=== PATIENT | female | born 1990 | race Caucasian/White ===

== ENCOUNTER 2017-02-25 16:22 | Emergency (ER) | payer SELFPAY ==
[~2017-02-25] VITALS: Ht 172.7 cm; Wt 117.9 kg
[2017-02-25] MEDS ORDERED: HYDR-3062 PO (16:56)
[2017-02-25] MEDS ORDERED: DIPH25CA79 PO (16:56)
[2017-02-25] MEDS ORDERED: NITR-65 PO (16:56)
[2017-02-25] MEDS ORDERED: ALPR1TAB2 PO (16:56)
[2017-02-25] MEDS ORDERED: FLUO40CA12 PO (16:56)
[2017-02-25] MEDS ORDERED: HYDR12.56 PO (16:56)
[2017-02-25] MEDS ORDERED: OMEP20CA12 PO (16:56)
[2017-02-25] MEDS ORDERED: CYCL10TA9 PO (16:56)
[2017-02-25] MEDS ORDERED: NORG1TAB14 PO (16:56)
[2017-02-25] MEDS ORDERED: METO10TA3 PO (16:56)
--- NOTE | 2017-02-25 17:52 | ED GU-Female ---
General Chief Complaint: -Female Stated Complaint: UNABLE TO URINATE/HX OF STONES Nursing Triage Note: Pt reports difficulty urinating x3 days and left flank pain. pt reports passing kidney stones on friday (02/22). Nursing Sepsis Screen: No Definite Risk Source: patient Exam Limitations: no limitations History of Present Illness Time seen by provider: 17:52 Allergies and Home Medications Allergies Coded Allergies: Penicillins (Unverified Allergy, Unknown, 02/25/17) Home Medications Alprazolam 1 Mg Tablet, 1 MG PO DAILY, (Reported) Cyclobenzaprine HCl 10 Mg Tablet, 10 MG PO TID PRN for MUSCLE SPASMS, (Reported) Diphenhydramine HCl 25 Mg Capsule, 50 MG PO PRN PRN for allergies, (Reported) Fluoxetine HCl 40 Mg Capsule, 40 MG PO DAILY, (Reported) Hydrochlorothiazide 12.5 Mg Tablet, 12.5 MG PO DAILY, (Reported) Hydrocodone/Acetaminophen 1 Each Tablet, 1 EACH PO Q6H PRN for prn, (Reported) Metoclopramide HCl 10 Mg Tablet, 10 MG PO QID PRN for NAUSEA/VOMITING-1ST LINE, (Reported) Nitrofurantoin Monohyd/M-Cryst 100 Mg Capsule, 1 TAB PO PRN, (Reported) Norgestimate-Ethinyl Estradiol 1 Each Tablet, 1 EACH PO DAILY, (Reported) Omeprazole 20 Mg Capsule.dr, 20 MG PO DAILY, (Reported) Past Ccbazjq-Djlvbo-Wwzenf Hx Patient Social History Alcohol Use: Denies Use Recreational Drug Use: No Smoking Status: Never a Smoker Recent Foreign Travel: No Contact w/Someone Who Travel: No Recent Infectious Disease Expo: No Recent Hopitalizations: No Seasonal Allergies Seasonal Allergies: No Gastrointestinal Gastrointestinal Disorders: Esophagitis, Ulcer Physical Exam Vital Signs Vital Sign - Last 12Hours 02/25/17 16:46 Temp 98.3 Pulse 93 Resp 18 B/P (MAP) 129/73 Pulse Ox 98 O2 Delivery Room Air Capillary Refill : Less Than 3 Seconds Progress/Results/Core Measures Results/Orders Lab Results Laboratory Tests Test 02/25/17 17:30 02/25/17 18:35 Range/Units Urine Color YELLOW Urine Clarity SLIGHTLY CLOUDY Urine pH 8 5-9 Urine Specific [place] 1.010 L 1.016-1.022 Urine Protein 1+ H NEGATIVE Urine Glucose (UA) NEGATIVE NEGATIVE Urine Ketones NEGATIVE NEGATIVE Urine Nitrite NEGATIVE NEGATIVE Urine Bilirubin NEGATIVE NEGATIVE Urine Urobilinogen NORMAL NORMAL MG/DL Urine Leukocyte Esterase 3+ H NEGATIVE Urine RBC (Auto) 1+ H NEGATIVE Urine RBC 2-5 H /HPF Urine WBC 25-50 H /HPF Urine Squamous Epithelial Cells >50 H /HPF Urine Crystals NONE /LPF Urine Bacteria MODERATE H /HPF Urine Casts NONE /LPF Urine Mucus NEGATIVE /LPF Urine Culture Indicated YES White Blood Count 9.6 4.3-11.0 10^3/uL Red Blood Count 4.57 4.35-5.85 10^6/uL Hemoglobin 13.3 11.5-16.0 G/DL Hematocrit 40 35-52 % Mean Corpuscular Volume 88 80-99 FL Mean Corpuscular Hemoglobin 29 25-34 PG Mean Corpuscular Hemoglobin Concent 33 32-36 G/DL Red Cell Distribution Width 12.2 10.0-14.5 % Platelet Count 233 130-400 10^3/uL Mean Platelet Volume 11.3 H 7.4-10.4 FL Neutrophils (%) (Auto) 65 42-75 % Lymphocytes (%) (Auto) 28 12-44 % Monocytes (%) (Auto) 5 0-12 % Eosinophils (%) (Auto) 2 0-10 % Basophils (%) (Auto) 0 0-10 % Neutrophils # (Auto) 6.3 1.8-7.8 X 10^3 Lymphocytes # (Auto) 2.7 1.0-4.0 X 10^3 Monocytes # (Auto) 0.5 0.0-1.0 X 10^3 Eosinophils # (Auto) 0.1 0.0-0.3 10^3/uL Basophils # (Auto) 0.0 0.0-0.1 10^3/uL Sodium Level 138 135-145 MMOL/L Potassium Level 3.7 3.6-5.0 MMOL/L Chloride Level 105 98-107 MMOL/L Carbon Dioxide Level 19 L 21-32 MMOL/L Anion Gap 14 5-14 MMOL/L Blood Urea Nitrogen 14 7-18 MG/DL Creatinine 0.66 0.60-1.30 MG/DL Estimat Glomerular Filtration Rate > 60 BUN/Creatinine Ratio 21 Glucose Level 87 70-105 MG/DL Calcium Level 8.9 8.5-10.1 MG/DL Total Bilirubin 0.2 0.1-1.0 MG/DL Aspartate Amino Transf (AST/SGOT) 20 5-34 U/L Alanine Aminotransferase (ALT/SGPT) 18 0-55 U/L Alkaline Phosphatase 88 40-136 U/L Total Protein 7.2 6.4-8.2 GM/DL Albumin 3.8 3.2-4.5 GM/DL My Orders Orders - HANY VELASQUEZ Ua Culture If Indicated (02/25/17 16:57) Urine Bedside (02/25/17 16:57) Cbc With Automated Diff (02/25/17 18:08) Comprehensive Metabolic Panel (02/25/17 18:08) Saline Lock/Iv-Start (02/25/17 18:08) Fentanyl Injection (Sublimaze Injection (02/25/17 18:08) Ns Iv 1000 Ml (Sodium Chloride 0.9%) (02/25/17 18:08) Ondansetron Injection (Zofran Injectio (02/25/17 18:15) Phenazopyridine Tablet (Pyridium Tablet) (02/25/17 18:08) Urine Culture (02/25/17 17:30) Ceftriaxone Injection (Rocephin Injectio (02/25/17 19:30) Morphine Injection (Morphine Injection (02/25/17 19:28) Bladder Scan (02/25/17 19:28) Medications Given in ED Current Medications Medications Dose Ordered Sig/Carlos Eduardo Route Start Time Stop Time Status Last Admin Dose Admin Ceftriaxone Sodium 1000 mg/ Sodium Chloride 50 ml @ 100 mls/hr ONCE ONCE IV 02/25/17 19:30 02/25/17 19:59 DC 02/25/17 19:43 100 MLS/HR Ondansetron HCl 4 mg ONCE ONCE IVP 02/25/17 18:15 02/25/17 18:16 DC 02/25/17 18:38 4 MG Sodium Chloride 1,000 ml @ 0 mls/hr Q0M ONCE IV 02/25/17 18:08 02/25/17 18:11 DC 02/25/17 18:39 0 MLS/HR Vital Signs/I&O Vital Sign - Last 12Hours 02/25/17 16:46 Temp 98.3 Pulse 93 Resp 18 B/P (MAP) 129/73 Pulse Ox 98 O2 Delivery Room Air Blood Pressure Mean: 91 Departure Impression Impression: Primary Impression: Urinary tract infection Disposition: 01 HOME, SELF-CARE Condition: Improved Departure-Patient Inst. Decision time for Depature: 20:32 Referrals: NO,LOCAL PHYSICIAN (PCP/Family) Primary Care Physician Patient Instructions: Urinary Retention (DC), Urinary Tract Infection, Adult ( DC) Add. Discharge Instructions: All discharge instructions reviewed with patient and/or family. Voiced understanding. Medications as directed. Continue usual home medications. Follow-up with your family practitioner in the next 1-2 days for recheck. Drink plenty of fluids. Return to the emergency department for worsened pain, fever, inability to urinate, or any other concerns. Scripts Ondansetron (Ondansetron Odt) 8 Mg Tab.rapdis 8 MG PO Q6H Y for NAUSEA/VOMITING-1ST LINE, #10 TAB 0 Refills Prov: HANY VELASQUEZ 02/25/17 Phenazopyridine HCl (Pyridium) 200 Mg Tablet 1 TAB PO Q8H Y for pain, #30 TAB 0 Refills Prov: HANY VELASQUEZ 02/25/17 Cefdinir (Cefdinir) 300 Mg Capsule 300 MG PO BID, #14 CAP 0 Refills Prov: HANY VELASQUEZ 02/25/17 Work/School Note: Local Medical Staff Listing, Work Release Form Date Seen in the Emergency Department: Feb 25, 2017 Return to Work: Feb 27, 2017 HANY VELASQUEZ Feb 25, 2017 17:52
[2017-02-25] MEDS ORDERED: NS IV 1000 ML 1,000 ML IV ONE (18:08)
[2017-02-25] MEDS ORDERED: PHENAZOPYRIDINE 100 MG (PYRIDIUM) TABLET PO STA (18:08)
[2017-02-25] MEDS ORDERED: fentaNYL INJECTION 100 MCG/2 ML AMP IVP STA (18:08)
[2017-02-25 18:13] LABS: BILIRUBIN,URINE NEGATIVE (NEGATIVE); KETONES,URINE NEGATIVE (NEGATIVE); LEUKOCYTE ESTERASE ,URINE 3+ (NEGATIVE); NITRITE,URINE NEGATIVE (NEGATIVE); PH,URINE 8 (5-9); PROTEIN,URINE 1+ (NEGATIVE); SQUAMOUS EPITHELIAL CELL,UR >50 /HPF; UROBILINOGEN,URINE NORMAL (NORMAL); WBC,URINE 25-50 /HPF
[2017-02-25] MEDS ORDERED: ONDANSETRON 4 MG/2 ML (SDV) Z0FRAN IVP ONE (18:15)
[2017-02-25 19:08] LABS: BASOPHILS % (AUTO) 0 % (0-10); EOSINOPHILS # (AUTO) 0.1 10^3/uL (0.0-0.3); EOSINOPHILS % (AUTO) 2 % (0-10); LYMPHOCYTES # (AUTO) 2.7 X 10^3 (1.0-4.0); LYMPHOCYTES % (AUTO) 28 % (12-44); MEAN CORPUSCULAR HEMOGLOBIN 29 PG (25-34); MEAN CORPUSCULAR HGB CONC 33 G/DL (32-36); MEAN CORPUSCULAR VOLUME 88 FL (80-99); MEAN PLATELET VOLUME 11.3 FL (7.4-10.4); MONOCYTES # (AUTO) 0.5 X 10^3 (0.0-1.0); MONOCYTES % (AUTO) 5 % (0-12); NEUTROPHILS # (AUTO) 6.3 X 10^3 (1.8-7.8); NEUTROPHILS % (AUTO) 65 % (42-75); PLATELET COUNT 233 10^3/uL (130-400); RED BLOOD COUNT 4.57 10^6/uL (4.35-5.85); RED CELL DISTRIBUTION WIDTH 12.2 % (10.0-14.5); WHITE BLOOD COUNT 9.6 10^3/uL (4.3-11.0)
[2017-02-25 19:09] LABS: ALANINE AMINOTRANSFERASE 18 U/L (0-55); ALBUMIN 3.8 GM/DL (3.2-4.5); ANION GAP 14 MMOL/L (5-14); ASPARTATE AMINO TRANSFERASE 20 U/L (5-34); BILIRUBIN,TOTAL 0.2 MG/DL (0.1-1.0); BLOOD UREA NITROGEN 14 MG/DL (7-18); BUN/CREATININE RATIO 21; CALCIUM 8.9 MG/DL (8.5-10.1); CARBON DIOXIDE 19 MMOL/L (21-32); CHLORIDE 105 MMOL/L (98-107); CREATININE SERUM 0.66 MG/DL (0.60-1.30); GFR ESTIMATED > 60; GLUCOSE 87 MG/DL (70-105); POTASSIUM 3.7 MMOL/L (3.6-5.0); SODIUM 138 MMOL/L (135-145); TOTAL PROTEIN 7.2 GM/DL (6.4-8.2)
[2017-02-25] MEDS ORDERED: morphine INJ 10 MG/ML 1ML (SYR OR VIAL) IVP STA (19:28)
[2017-02-25] MEDS ORDERED: cefTRIAXone INJECTION 1,000 MG in NS (IVPB) 50 ML IV ONE (19:30)
[2017-02-25] MEDS ORDERED: PHEN-640 PO (20:39)
[2017-02-25] MEDS ORDERED: CEFD300C3 PO (20:39)
[2017-02-25] MEDS ORDERED: ONDA8TAB13 PO (20:39)
[2017-02-25] MEDS ORDERED: DIAZEPAM INJ 10 MG/2 ML (VALIUM) SYR IV ONE (21:15)
[2017-02-25] MEDS ORDERED: HYOS0.1283 SL (21:22)
[2017-02-25] MEDS ORDERED: RX-OXYCODONE/APAP 5-325 MG #4 TAB PK PO PRN (21:30)
[2017-02-25] MEDS ORDERED: HYOSCYAMINE 0.125 MG (LEVSIN) TAB PO ONE (21:30)
[2017-02-25] MEDS ORDERED: RX-HYOSCYAMINE 0.125 MG SL (LEVSIN) PPK#6 SL STA (21:31)
[2017-02-25] MEDS ORDERED: HYDR-3816 PO (21:32)
[2017-02-25 21:49] VITALS: BP 126/70
== END 2017-02-25 21:49 | disposition home or self-care (01) ==
LOC: EDUNIT# 16:22 → ER 16:26
DX: N39.0 Urinary tract infection, site not specified (principal); Z87.19 Personal history of other diseases of the digestive system
CPT/HCPCS: 36415; 51701; 80053; 81000; 84703; 85025; 87088; 96361; 96365; 96375

== ENCOUNTER 2018-10-09 10:26 | Emergency (ER) | payer SELFPAY ==
[~2018-10-09] VITALS: Ht 172.7 cm; Wt 118.8 kg
[~2018-10-09 10:26] MED LIST: ALPR1TAB2 PO; CEFD300C3 PO; CYCL10TA9 PO; DIPH25CA79 PO; FLUO40CA12 PO; HYDR-3062 PO; HYDR-34 PO; HYDR12.56 PO; HYOS0.1283 SL; METO10TA3 PO; NITR-65 PO; NORG1TAB14 PO; OMEP20CA12 PO; ONDA8TAB13 PO; PHEN-640 PO
[2018-10-09] MEDS ORDERED: fentaNYL INJECTION 100 MCG/2 ML AMP IVP ONE (11:00)
--- NOTE | 2018-10-09 11:20 | ED Abdominal Pain ---
General Chief Complaint: -Female Stated Complaint: SUPRAPUBIC PAIN Nursing Triage Note: severe pelvic pain starting this morning. Sepsis Screen: No Definite Risk History of Present Illness Date Seen by Provider: Oct 09, 2018 Time Seen by Provider: 10:35 Initial Comments Patient is a 28-year-old female who presents to the emergency department complaining of pelvic pain. The patient had onset of pain symptoms earlier this morning. She describes sudden onset of severe pelvic pain. She does have a known prior history of kidney stones but states this pain feels much different compared to prior stones. No recent fever or chills. Her last menstrual cycle was Sep 17 but she had some irregular spotting of blood last week. She denies abnormal vaginal discharge. No flank pain. She is nauseated from the pain but has not had emesis. Denies prior history of abdominal surgeries. No constipation or diarrhea. She is a with no prior related complications. Allergies and Home Medications Allergies Coded Allergies: Penicillins (Unverified Allergy, Unknown, 02/25/17) Home Medications Alprazolam 1 Mg Tablet, 1 MG PO DAILY, (Reported) Cefdinir 300 Mg Capsule, 300 MG PO BID Prescribed by: HANY VELASQUEZ on 02/25/172038 Cyclobenzaprine HCl 10 Mg Tablet, 10 MG PO TID PRN for MUSCLE SPASMS, (Reported) Diphenhydramine HCl 25 Mg Capsule, 50 MG PO PRN PRN for allergies, (Reported) Fluoxetine HCl 40 Mg Capsule, 40 MG PO DAILY, (Reported) Hydrochlorothiazide 12.5 Mg Tablet, 12.5 MG PO DAILY, (Reported) Hydrocodone Bit/Acetaminophen 1 Each Tablet, 1 EACH PO Q4H PRN for pain Prescribed by: HANY VELASQUEZ on 02/25/172131 Hydrocodone/Acetaminophen 1 Each Tablet, 1 EACH PO Q6H PRN for prn, (Reported) Hyoscyamine Sulfate 0.125 Mg Tab.subl, 0.125 MG SL Q6H PRN for SPASMS Prescribed by: HANY VELASQUEZ on 02/25/172121 Metoclopramide HCl 10 Mg Tablet, 10 MG PO QID PRN for NAUSEA/VOMITING-1ST LINE, (Reported) Nitrofurantoin Monohyd/M-Cryst 100 Mg Capsule, 1 TAB PO PRN, (Reported) Norgestimate-Ethinyl Estradiol 1 Each Tablet, 1 EACH PO DAILY, (Reported) Omeprazole 20 Mg Capsule.dr, 20 MG PO DAILY, (Reported) Ondansetron 8 Mg Tab.rapdis, 8 MG PO Q6H PRN for NAUSEA/VOMITING-1ST LINE Prescribed by: HANY VELASQUEZ on 02/25/172038 Phenazopyridine HCl 200 Mg Tablet, 1 TAB PO Q8H PRN for pain Prescribed by: HANY VELASQUEZ on 02/25/172038 Patient Home Medication List Home Medication List Reviewed: Yes Review of Systems Review of Systems Constitutional: no symptoms reported Respiratory: No Symptoms Reported Cardiovascular: No Symptoms Reported Gastrointestinal: See HPI Genitourinary: See HPI Musculoskeletal: no symptoms reported Skin: no symptoms reported Psychiatric/Neurological: No Symptoms Reported Past Lmhnuzi-Jsgusd-Swoced Hx Patient Social History Recent Foreign Travel: No Contact w/Someone Who Travel: No Recent Infectious Disease Expo: No Recent Hopitalizations: No Seasonal Allergies Seasonal Allergies: No Past Medical History Respiratory: No Cardiac: No Neurological: No : No Last Menstrual Period: Sep 17, 2018 Hx : 2 Hx Para: 2 Genitourinary: Yes ("sponge kidney") Kidney Stones Gastrointestinal: Yes Esophagitis, Ulcer Musculoskeletal: No Endocrine: No HEENT: No Cancer: No Psychosocial: No Integumentary: No Blood Disorders: No Family Medical History No Pertinent Family Hx Physical Exam Vital Signs Vital Signs - First Documented 10/09/18 10:53 Temp 97.8 Pulse 86 Resp 18 B/P (MAP) 144/74 (97) Pulse Ox 96 O2 Delivery Room Air Capillary Refill : Less Than 3 Seconds Height/Weight/BMI Height: 5'8.00" Weight: 262lbs. oz. 118.900297gi; BMI Method:Stated General Appearance: WD/WN, other (severe distress due to pain) Neck: full range of motion Respiratory: lungs clear, normal breath sounds Cardiovascular: regular rate, rhythm, no edema Gastrointestinal: normal bowel sounds, soft, other (tender to palpate over her pelvic region but not upper abdomen) Genital/Rectal: normal genital exam Extremities: normal range of motion, normal inspection Back: no CVA tenderness Neurologic/Psychiatric: alert, oriented x 3 Progress/Results/Core Measures Results/Orders Lab Results Laboratory Tests Test 10/09/18 11:00 10/09/18 11:30 Range/Units White Blood Count 7.8 4.3-11.0 10^3/uL Red Blood Count 4.56 4.35-5.85 10^6/uL Hemoglobin 13.4 11.5-16.0 G/DL Hematocrit 40 35-52 % Mean Corpuscular Volume 87 80-99 FL Mean Corpuscular Hemoglobin 29 25-34 PG Mean Corpuscular Hemoglobin Concent 34 32-36 G/DL Red Cell Distribution Width 12.5 10.0-14.5 % Platelet Count 208 130-400 10^3/uL Mean Platelet Volume 10.9 H 7.4-10.4 FL Neutrophils (%) (Auto) 68 42-75 % Lymphocytes (%) (Auto) 25 12-44 % Monocytes (%) (Auto) 5 0-12 % Eosinophils (%) (Auto) 2 0-10 % Basophils (%) (Auto) 0 0-10 % Neutrophils # (Auto) 5.2 1.8-7.8 X 10^3 Lymphocytes # (Auto) 2.0 1.0-4.0 X 10^3 Monocytes # (Auto) 0.4 0.0-1.0 X 10^3 Eosinophils # (Auto) 0.2 0.0-0.3 10^3/uL Basophils # (Auto) 0.0 0.0-0.1 10^3/uL Neutrophils % (Manual) 59 % Lymphocytes % (Manual) 28 % Monocytes % (Manual) 6 % Eosinophils % (Manual) 2 % Basophils % (Manual) 1 % Band Neutrophils 4 % Urine Color YELLOW Urine Clarity SL CLOUDY Urine pH 6.0 5-9 Urine Specific [place] >=1.030 1.016-1.022 Urine Protein NEGATIVE NEGATIVE Urine Glucose (UA) NEGATIVE NEGATIVE Urine Ketones NEGATIVE NEGATIVE Urine Nitrite NEGATIVE NEGATIVE Urine Bilirubin NEGATIVE NEGATIVE Urine Urobilinogen 0.2 NORMAL MG/DL Urine Leukocyte Esterase NEGATIVE NEGATIVE Urine RBC (Auto) 1+ H NEGATIVE Urine RBC 0-2 /HPF Urine WBC 2-5 /HPF Urine Crystals NONE /LPF Urine Bacteria 3+ /HPF Urine Casts NONE /LPF Urine Mucus LARGE H /LPF Urine Culture Indicated NO Urine Test POSITIVE NEGATIVE Sodium Level 141 135-145 MMOL/L Potassium Level 4.0 3.6-5.0 MMOL/L Chloride Level 105 98-107 MMOL/L Carbon Dioxide Level 17 L 21-32 MMOL/L Anion Gap 19 H 5-14 MMOL/L Blood Urea Nitrogen 8 7-18 MG/DL Creatinine 0.59 L 0.60-1.30 MG/DL Estimat Glomerular Filtration Rate > 60 BUN/Creatinine Ratio 14 Glucose Level 117 H 70-105 MG/DL Calcium Level 8.7 8.5-10.1 MG/DL Human Chorionic Gonadotropin, Quant 222 H <5 MIU/ML My Orders Orders - CHUY CORRALES DO Saline Lock/Iv-Start (10/09/18 10:53) Cbc And Manual Diff (10/09/18 10:53) Basic Metabolic Panel (10/09/18 10:53) Urinalysis (10/09/18 10:53) Urine Bedside (10/09/18 10:53) Chlam Dna Probe (10/09/18 10:53) Neisseria Gonorrhea Swab (10/09/18 10:53) Fentanyl Injection (Sublimaze Injection (10/09/18 11:00) Hcg,Qualitative Urine (10/09/18 11:04) Us Non Ob Pelvis Comp/Transvag (10/09/18 11:44) Ns Iv 1000 Ml (Sodium Chloride 0.9%) (10/09/18 12:00) Hydromorphone Injection (Dilaudid Inject (10/09/18 12:00) Hcg,Quantitative (10/09/18 12:06) Hydromorphone Injection (Dilaudid Inject (10/09/18 12:45) Medications Given in ED Current Medications Medications Dose Ordered Sig/Carlos Eduardo Route Start Time Stop Time Status Last Admin Dose Admin Fentanyl Citrate 75 mcg ONCE ONCE IVP 10/09/18 11:00 10/09/18 11:01 DC 10/09/18 11:14 75 MCG Hydromorphone HCl 0.5 mg ONCE ONCE IV 10/09/18 12:45 10/09/18 12:46 DC 10/09/18 12:45 0.5 MG Hydromorphone HCl 1 mg ONCE ONCE IV 10/09/18 12:00 10/09/18 12:01 DC 10/09/18 12:00 1 MG Vital Signs/I&O 10/09/18 10/09/18 10/09/18 10:53 12:55 13:46 Temp 97.8 97.0 97.3 Pulse 86 75 73 Resp 18 18 20 B/P (MAP) 144/74 (97) 138/84 (102) 146/72 (96) Pulse Ox 96 96 97 O2 Delivery Room Air Room Air Blood Pressure Mean: 97 Progress Progress Note : Progress Note Patient is evaluated immediately on arrival to her room. She is in significant distress due to pain. Plan is to check basic labs, urinalysis, urine , and pelvic exam. Fentanyl was ordered for pain and IV placement is also ordered. 11:50: Pelvic Exam: normal female external genitalia. Vaginal mucosa is moist and uninflamed. Scant amount of old blood in the vault. No pathologic discharge is appreciated. Noted, the the examination is excruciatingly painful for the patient, including with cervical motion tenderness and with adnexal palpation. Exam is accompanied by female registered nurse. 12:20: Urine is returned positive. I discussed this finding with the patient. The patient did not know that she was . This raises significant concern based on her HPI and physical exam for ectopic . We do not currently have ultrasound available at this facility and they are about 40 minutes out. Given the severity of the potential diagnosis, I discussed transfer to the next closest emergency room with immediate ultrasound capabilities with the patient. She is agreeable to this plan of care. She was given an additional dose of pain medication, Dilaudid, which did significantly improve her symptoms. Differential diagnosis includes tubo-ovarian abscess, ovarian torsion, ovarian cyst, ruptured ovarian cyst, ectopic . Proper evaluation of all of these requires ultrasound of the pelvis, I do not feel it is appropriate to delay ultrasound in this patient given positive findings. I spoke to at [facility] in [place] who will accept the patient for ER to ER transfer. 12:40: EMS notified of need for transfer. Additional 0.5 mg dilaudid ordered. Departure Impression Primary Impression: Pelvic pain Disposition: 02 XFER SHT-TRM HOSP Condition: Stable Transfer Time Spoke to Accepting Phy: 10:[address] Cruz Nguyen Transfer Time: 12:50 Transfer Facility: [facility] Emergency Department, [place] Method of Transfer: EMS Departure-Patient Inst. Referrals: JENI BATES APRN (PCP) Primary Care Physician NO,LOCAL PHYSICIAN (Family) Primary Care Physician CHUY CORRALES DO Oct 09, 2018 11:20
[2018-10-09] MEDS ORDERED: HYDROmorphone 2 MG/ML VIAL (DILAUDID) IV ONE ×3 (11:45→12:45)
[2018-10-09 11:57] LABS: BILIRUBIN,URINE NEGATIVE (NEGATIVE); CLARITY,URINE SL CLOUDY; COLOR,URINE YELLOW; GLUCOSE, URINE (UA) NEGATIVE (NEGATIVE); KETONES,URINE NEGATIVE (NEGATIVE); LEUKOCYTE ESTERASE ,URINE NEGATIVE (NEGATIVE); NITRITE,URINE NEGATIVE (NEGATIVE); PROTEIN,URINE NEGATIVE (NEGATIVE); UROBILINOGEN,URINE 0.2 MG/DL (NORMAL)
[2018-10-09 11:58] LABS: BACTERIA,URINE 3+ /HPF; HCG,QUALITATIVE URINE POSITIVE (NEGATIVE); RBC,URINE 0-2 /HPF
[2018-10-09 12:00] LABS: BUN/CREATININE RATIO 14; CALCIUM 8.7 MG/DL (8.5-10.1); CARBON DIOXIDE 17 MMOL/L (21-32); CHLORIDE 105 MMOL/L (98-107); CREATININE SERUM 0.59 MG/DL (0.60-1.30); GFR ESTIMATED > 60; GLUCOSE 117 MG/DL (70-105); SODIUM 141 MMOL/L (135-145)
[2018-10-09] MEDS ORDERED: NS IV 1000 ML 1,000 ML IV SCH (12:00)
[2018-10-09 12:01] LABS: HEMATOCRIT 40 % (35-52); HEMOGLOBIN 13.4 G/DL (11.5-16.0); MEAN CORPUSCULAR HEMOGLOBIN 29 PG (25-34); MEAN CORPUSCULAR HGB CONC 34 G/DL (32-36); MEAN CORPUSCULAR VOLUME 87 FL (80-99); RED CELL DISTRIBUTION WIDTH 12.5 % (10.0-14.5); WHITE BLOOD COUNT 7.8 10^3/uL (4.3-11.0)
[2018-10-09 12:02] LABS: BASOPHILS % (AUTO) 0 % (0-10); EOSINOPHILS % (AUTO) 2 % (0-10); LYMPHOCYTES % (AUTO) 25 % (12-44); MEAN PLATELET VOLUME 10.9 FL (7.4-10.4); MONOCYTES % (AUTO) 5 % (0-12); NEUTROPHILS % (AUTO) 68 % (42-75); PLATELET COUNT 208 10^3/uL (130-400)
[2018-10-09 12:03] LABS: BAND NEUTROPHILS 4 %; BASOPHILS % (MANUAL) 1 %; EOSINOPHILS # (AUTO) 0.2 10^3/uL (0.0-0.3); EOSINOPHILS % (MANUAL) 2 %; LYMPHOCYTES % (MANUAL) 28 %; MONOCYTES # (AUTO) 0.4 X 10^3 (0.0-1.0); MONOCYTES % (MANUAL) 6 %; NEUTROPHILS # (AUTO) 5.2 X 10^3 (1.8-7.8); NEUTROPHILS % (MANUAL) 59 %
[2018-10-09 13:46] VITALS: BP 146/72
[2018-10-09] MEDS ORDERED: HYDROmorphone 2 MG/ML VIAL (DILAUDID) IV STA (13:59)
--- NOTE | 2018-10-09 15:00 | NUR ---
ASSUMED CARE OF PT. DENIES NEEDS AT THIS TIME.
--- NOTE | 2018-10-09 15:12 | ED Abdominal Pain ---
General Chief Complaint: -Female Stated Complaint: SUPRAPUBIC PAIN Nursing Triage Note: severe pelvic pain starting this morning. Sepsis Screen: No Definite Risk Source of Information: Patient Exam Limitations: No Limitations History of Present Illness Date Seen by Provider: Oct 09, 2018 Time Seen by Provider: 13:04 Initial Comments Here from [place] ED with report of severe pelvic pain that started this morning. Patient was found to be at [place]. Concerns for ectopic . Patient did not know that she was . Last period was September 17. She is sexually active with single partner. She's had pelvic pain problems before related to different things. She's had 2 previous pregnancies. No nausea or vomiting currently. She has had Dilaudid 1/2 mg and fentanyl 75 g and repeated 50 g for pain prior to arrival. Patient is early tender again and she is concerned about the ultrasound due to pain. Timing/Duration: 12 Hours Severity/Quality: Moderate, Severe, Sharp Location: Suprapubic Radiation: No Radiation Activities at Onset: None Modifying Factors: Worsens With Movement Associated Symptoms: No Back Pain, No Chest Pain, No Fever/Chills, No Nausea/ Vomiting, No Shortness of Air, No Weakness Allergies and Home Medications Allergies Coded Allergies: Penicillins (Unverified Allergy, Unknown, 02/25/17) Home Medications Alprazolam 1 Mg Tablet, 1 MG PO DAILY, (Reported) Cefdinir 300 Mg Capsule, 300 MG PO BID Prescribed by: HANY VELASQUEZ on 02/25/172038 Cyclobenzaprine HCl 10 Mg Tablet, 10 MG PO TID PRN for MUSCLE SPASMS, (Reported) Diphenhydramine HCl 25 Mg Capsule, 50 MG PO PRN PRN for allergies, (Reported) Fluoxetine HCl 40 Mg Capsule, 40 MG PO DAILY, (Reported) Hydrochlorothiazide 12.5 Mg Tablet, 12.5 MG PO DAILY, (Reported) Hydrocodone Bit/Acetaminophen 1 Each Tablet, 1 EACH PO Q4H PRN for pain Prescribed by: HANY VELASQUEZ on 02/25/172131 Hydrocodone Bit/Acetaminophen 1 Ea Tablet, 1 EACH PO Q6H Prescribed by: YAYA SNOWDEN on 10/09/18 1602 Hydrocodone/Acetaminophen 1 Each Tablet, 1 EACH PO Q6H PRN for prn, (Reported) Hyoscyamine Sulfate 0.125 Mg Tab.subl, 0.125 MG SL Q6H PRN for SPASMS Prescribed by: HANY VELASQUEZ on 02/25/172121 Metoclopramide HCl 10 Mg Tablet, 10 MG PO QID PRN for NAUSEA/VOMITING-1ST LINE, (Reported) Nitrofurantoin Monohyd/M-Cryst 100 Mg Capsule, 1 TAB PO PRN, (Reported) Norgestimate-Ethinyl Estradiol 1 Each Tablet, 1 EACH PO DAILY, (Reported) Omeprazole 20 Mg Capsule.dr, 20 MG PO DAILY, (Reported) Ondansetron 8 Mg Tab.rapdis, 8 MG PO Q6H PRN for NAUSEA/VOMITING-1ST LINE Prescribed by: HANY VELASQUEZ on 02/25/172038 Phenazopyridine HCl 200 Mg Tablet, 1 TAB PO Q8H PRN for pain Prescribed by: HANY VELASQUEZ on 02/25/172038 Patient Home Medication List Home Medication List Reviewed: Yes Review of Systems Review of Systems Constitutional: no symptoms reported Respiratory: No Symptoms Reported Cardiovascular: No Symptoms Reported Gastrointestinal: See HPI Genitourinary: See HPI Musculoskeletal: no symptoms reported Skin: no symptoms reported Psychiatric/Neurological: No Symptoms Reported All Other Systems Reviewed Negative Unless Noted: Yes Past Xqjdkkf-Ntxrly-Zppbry Hx Past Med/Social Hx: Reviewed Nursing Past Med/Soc Hx Patient Social History Alcohol Use: Denies Use Recreational Drug Use: No Smoking Status: Unknown if Ever Smoked Recent Foreign Travel: No Contact w/Someone Who Travel: No Recent Infectious Disease Expo: No Recent Hopitalizations: No Physical Abuse: No Sexual Abuse: No Mistreated: No Fear: No Immunizations Up To Date Tetanus Booster (TDap): Unknown Seasonal Allergies Seasonal Allergies: No Past Medical History Surgeries: Yes (LITHOTRIPSY) Respiratory: No Cardiac: No Neurological: No : No Last Menstrual Period: Sep 17, 2018 Hx : 2 Hx Para: 2 Genitourinary: Yes (MEDULARY SPONGE KIDNEY DISEASE) Kidney Stones Gastrointestinal: Yes Diverticulosis, Esophagitis Musculoskeletal: No Endocrine: No HEENT: No Cancer: No Psychosocial: No Integumentary: No Blood Disorders: No Family Medical History Reviewed Nursing Family Hx No Pertinent Family Hx Physical Exam Vital Signs Vital Signs - First Documented 10/09/18 10:53 Temp 97.8 Pulse 86 Resp 18 B/P (MAP) 144/74 (97) Pulse Ox 96 O2 Delivery Room Air Capillary Refill : Less Than 3 Seconds Height/Weight/BMI Height: 5'8.00" Weight: 262lbs. oz. 118.224128qm; BMI Method:Stated General Appearance: WD/WN, mild distress HEENT: PERRL/EOMI, pharynx normal Neck: full range of motion, supple Respiratory: lungs clear, normal breath sounds Cardiovascular: regular rate, rhythm, no murmur Gastrointestinal: soft, tenderness (bilateral lower quadrants and suprapubic area.) Extremities: non-tender, normal inspection Back: normal inspection, no CVA tenderness, no vertebral tenderness Neurologic/Psychiatric: alert, oriented x 3 Skin: normal color, warm/dry Progress/Results/Core Measures Results/Orders Lab Results Laboratory Tests Test 10/09/18 11:00 10/09/18 11:30 Range/Units White Blood Count 7.8 4.3-11.0 10^3/uL Red Blood Count 4.56 4.35-5.85 10^6/uL Hemoglobin 13.4 11.5-16.0 G/DL Hematocrit 40 35-52 % Mean Corpuscular Volume 87 80-99 FL Mean Corpuscular Hemoglobin 29 25-34 PG Mean Corpuscular Hemoglobin Concent 34 32-36 G/DL Red Cell Distribution Width 12.5 10.0-14.5 % Platelet Count 208 130-400 10^3/uL Mean Platelet Volume 10.9 H 7.4-10.4 FL Neutrophils (%) (Auto) 68 42-75 % Lymphocytes (%) (Auto) 25 12-44 % Monocytes (%) (Auto) 5 0-12 % Eosinophils (%) (Auto) 2 0-10 % Basophils (%) (Auto) 0 0-10 % Neutrophils # (Auto) 5.2 1.8-7.8 X 10^3 Lymphocytes # (Auto) 2.0 1.0-4.0 X 10^3 Monocytes # (Auto) 0.4 0.0-1.0 X 10^3 Eosinophils # (Auto) 0.2 0.0-0.3 10^3/uL Basophils # (Auto) 0.0 0.0-0.1 10^3/uL Neutrophils % (Manual) 59 % Lymphocytes % (Manual) 28 % Monocytes % (Manual) 6 % Eosinophils % (Manual) 2 % Basophils % (Manual) 1 % Band Neutrophils 4 % Urine Color YELLOW Urine Clarity SL CLOUDY Urine pH 6.0 5-9 Urine Specific [place] >=1.030 1.016-1.022 Urine Protein NEGATIVE NEGATIVE Urine Glucose (UA) NEGATIVE NEGATIVE Urine Ketones NEGATIVE NEGATIVE Urine Nitrite NEGATIVE NEGATIVE Urine Bilirubin NEGATIVE NEGATIVE Urine Urobilinogen 0.2 NORMAL MG/DL Urine Leukocyte Esterase NEGATIVE NEGATIVE Urine RBC (Auto) 1+ H NEGATIVE Urine RBC 0-2 /HPF Urine WBC 2-5 /HPF Urine Crystals NONE /LPF Urine Bacteria 3+ /HPF Urine Casts NONE /LPF Urine Mucus LARGE H /LPF Urine Culture Indicated NO Urine Test POSITIVE NEGATIVE Sodium Level 141 135-145 MMOL/L Potassium Level 4.0 3.6-5.0 MMOL/L Chloride Level 105 98-107 MMOL/L Carbon Dioxide Level 17 L 21-32 MMOL/L Anion Gap 19 H 5-14 MMOL/L Blood Urea Nitrogen 8 7-18 MG/DL Creatinine 0.59 L 0.60-1.30 MG/DL Estimat Glomerular Filtration Rate > 60 BUN/Creatinine Ratio 14 Glucose Level 117 H 70-105 MG/DL Calcium Level 8.7 8.5-10.1 MG/DL Human Chorionic Gonadotropin, Quant 222 H <5 MIU/ML My Orders Orders - YAYA SNOWDEN MD Hydromorphone Injection (Dilaudid Inject (10/09/18 13:59) Us Ob<14 Wks Sngle W/Transvag (10/09/18 13:03) Hydrocodone/Apap 7.5/325 Tab (Lortab 7. (10/09/18 15:33) Ceftriaxone For Iv Use (Rocephin For I (10/09/18 16:00) Azithromycin Tablet (Zithromax Tablet) (10/09/18 15:48) Abo Rh Type (10/09/18 16:09) Medications Given in ED Current Medications Medications Dose Ordered Sig/Carlos Eduardo Route Start Time Stop Time Status Last Admin Dose Admin Ceftriaxone Sodium 1000 mg/ Sterile Water 10 ml @ 200 mls/hr ONCE ONCE IV 10/09/18 16:00 10/09/18 16:02 DC 10/09/18 16:00 200 MLS/HR Fentanyl Citrate 75 mcg ONCE ONCE IVP 10/09/18 11:00 10/09/18 11:01 DC 10/09/18 11:14 75 MCG Hydromorphone HCl 0.5 mg ONCE ONCE IV 10/09/18 12:45 10/09/18 12:46 DC 10/09/18 12:45 0.5 MG Hydromorphone HCl 1 mg ONCE ONCE IV 10/09/18 12:00 10/09/18 12:01 DC 10/09/18 12:00 1 MG Vital Signs/I&O 10/09/18 10/09/18 10/09/18 10:53 12:55 13:46 Temp 97.8 97.0 97.3 Pulse 86 75 73 Resp 18 18 20 B/P (MAP) 144/74 (97) 138/84 (102) 146/72 (96) Pulse Ox 96 96 97 O2 Delivery Room Air Room Air Blood Pressure Mean: 96 Progress Progress Note : Progress Note Seen and evaluated. Reviewed laboratory data and physician documentation from [place] ED. Ultrasound pelvis ordered. Quantitative hCG level noted to be 222. Dilaudid 1 mg IV for pain. Monitor patient. 1545: Ultrasound results noted and discussed with the patient. No acute findings. May have had ruptured ovarian cyst. No intraoral or extrauterine noted. Early given her Quant is only 222. She will need repeat hCG level. I did discuss the case with Dr. Titus, on-call for [facility]. She will establish follow-up visit appointment for repeat Quant level early next week. I will write a small prescription for pain medicine. Rocephin 1 g IV and Zithromax 1 g by mouth given for pain of cervical motion tenderness. After discharge home with return precautions. Patient verbalize understanding instructions and agreement with plan. Departure Impression Primary Impression: Pelvic pain Additional Impression: Threatened in early Disposition: HOME, SELF-CARE Condition: Stable Transfer Time Spoke to Accepting Phy: 10:30 Departure-Patient Inst. Decision time for Depature: 15:59 Referrals: JENI BATES APRN (PCP) Primary Care Physician NO,LOCAL PHYSICIAN (Family) Primary Care Physician Patient Instructions: Acute Pelvic Pain (DC), Threatened Miscarriage (DC) Add. Discharge Instructions: All discharge instructions reviewed with patient and/or family. Voiced understanding. You need to have recheck of your labs early next week. The clinic will call you for appointment. If you have not heard anything that you need to call on Friday morning. Return for worse pain, fever, vomiting, weakness, breathing problems or other concerns as needed. Scripts Hydrocodone Bit/Acetaminophen (LORTAB 7.5 MG TABLET) 1 Ea Tablet 1 EACH PO Q6H, #8 TAB 0 Refills Prov: YAYA SNOWDEN MD 10/09/18 YAYA SNOWDEN MD Oct 09, 2018 15:12
--- NOTE | 2018-10-09 15:13 | Diagnostic Imaging Report ---
INDICATION: Suprapubic pain and positive beta-hCG. FINDINGS: The uterus measures 9.9 x 6.9 x 4.9 cm. The endometrium is 7 mm in thickness. No intrauterine gestational sac is identified. The right ovary measures 5.1 x 2.0 x 3.7 cm and the left ovary measures 3.9 x 2.4 x 2.4 cm. There is some simple appearing free fluid in the cul-de-sac. No complex free fluid is seen. Both ovaries do demonstrate some blood flow. No definite adnexal mass is seen to suggest an ectopic . There are some follicles in both ovaries. IMPRESSION: No definite evidence of intrauterine or ectopic . There is simple appearing free fluid in the pelvis. Correlation with serial beta-hCG levels and/or followup with ultrasound could be performed if clinically indicated. Dictated by: Dictated on workstation # [id number]
[2018-10-09] MEDS ORDERED: HYDROcodone/APAP 7.5 MG/325 MG (LORTAB, LORCET PLUS) TABLET PO STA (15:33)
[2018-10-09] MEDS ORDERED: AZITHROMYCIN 250 MG TAB (ZITHROMAX) PO STA (15:48)
[2018-10-09] MEDS ORDERED: cefTRIAXone FOR IV USE 1,000 MG in WATER (STERILE) FOR INJECTION 10 ML IV ONE (16:00)
[2018-10-09] MEDS ORDERED: HYDR-34 PO (16:02)
--- NOTE | 2018-10-09 16:11 | NUR ---
CONTACTED LAB FOR BLOOD DRAW.
--- NOTE | 2018-10-09 17:10 | NUR ---
NOTIFIED WE WERE WAITING ON LAB TO COME BACK. DENIES NEEDS AT THIS TIME.
[2018-10-09 17:27] VITALS: BP 133/80
== END 2018-10-09 17:26 | disposition home or self-care (01) ==
LOC: EDUNIT# 10:26 → ER FS 10:30 → ER 17:26
DX: R10.2 Pelvic and perineal pain (principal); Z87.19 Personal history of other diseases of the digestive system; Z88.0 Allergy status to penicillin; Z87.442 Personal history of urinary calculi
CPT/HCPCS: 36415; 76801; 76817; 80048; 81000; 84702; 84703; 85007; 85027; 86900; 86901; 87491; 87591

== ENCOUNTER → 2018-10-12 | Outpatient (CLI) | payer SELFPAY | LOC: LAB FS 14:59 | PROVIDERS: ATTEND Nurse Practitioner Family | DX: O26.891 Other specified pregnancy related conditions, first trimester (principal) | CPT/HCPCS: 36415; 84702 ==

== ENCOUNTER → 2018-10-14 | Outpatient (CLI) | payer SELFPAY | LOC: LAB FS 14:42 | PROVIDERS: ATTEND Nurse Practitioner Family | DX: O20.0 Threatened abortion (principal) | CPT/HCPCS: 36415; 84702 ==

== ENCOUNTER 2018-10-18 12:27 | Observation (INO) | payer OTHER ==
[~2018-10-18] VITALS: Ht 172.7 cm; Wt 117.9 kg
--- NOTE | 2018-10-18 12:50 | ED GU-Female ---
General Chief Complaint: -Female Stated Complaint: 4-6 WKS - BLEEDING/CRAMPING Source: patient, family Exam Limitations: no limitations History of Present Illness Date Seen by Provider: Oct 18, 2018 Time Seen by Provider: 12:36 Initial Comments 28-year-old LMP 5 weeks ago presents with cramping over the last couple of days and bleeding starting this morning. She states that her hCG levels have been low at recent OB appointments. She has not had an ultrasound. Her blood type is O+ by her history. She states she is confident of this. Denies other medical problems or other current symptoms. No fever, chills or urinary complaints. Allergies and Home Medications Allergies Coded Allergies: Penicillins (Unverified Allergy, Unknown, 02/25/17) Home Medications Alprazolam 1 Mg Tablet, 1 MG PO DAILY, (Reported) Cefdinir 300 Mg Capsule, 300 MG PO BID Prescribed by: HANY VELASQUEZ on 02/25/172038 Cyclobenzaprine HCl 10 Mg Tablet, 10 MG PO TID PRN for MUSCLE SPASMS, (Reported) Diphenhydramine HCl 25 Mg Capsule, 50 MG PO PRN PRN for allergies, (Reported) Fluoxetine HCl 40 Mg Capsule, 40 MG PO DAILY, (Reported) Hydrochlorothiazide 12.5 Mg Tablet, 12.5 MG PO DAILY, (Reported) Hydrocodone Bit/Acetaminophen 1 Each Tablet, 1 EACH PO Q4H PRN for pain Prescribed by: HANY VELASQUEZ on 02/25/172131 Hydrocodone Bit/Acetaminophen 1 Ea Tablet, 1 EACH PO Q6H Prescribed by: YAYA SNOWDEN on 10/09/18 160 Hydrocodone/Acetaminophen 1 Each Tablet, 1 EACH PO Q6H PRN for prn, (Reported) Hyoscyamine Sulfate 0.125 Mg Tab.subl, 0.125 MG SL Q6H PRN for SPASMS Prescribed by: HANY VELASQUEZ on 02/25/172121 Metoclopramide HCl 10 Mg Tablet, 10 MG PO QID PRN for NAUSEA/VOMITING-1ST LINE, (Reported) Nitrofurantoin Monohyd/M-Cryst 100 Mg Capsule, 1 TAB PO PRN, (Reported) Norgestimate-Ethinyl Estradiol 1 Each Tablet, 1 EACH PO DAILY, (Reported) Omeprazole 20 Mg Capsule.dr, 20 MG PO DAILY, (Reported) Ondansetron 8 Mg Tab.rapdis, 8 MG PO Q6H PRN for NAUSEA/VOMITING-1ST LINE Prescribed by: HANY VELASQUEZ on 02/25/172038 Phenazopyridine HCl 200 Mg Tablet, 1 TAB PO Q8H PRN for pain Prescribed by: HANY VELASQUEZ on 02/25/172038 Patient Home Medication List Home Medication List Reviewed: Yes Review of Systems Review of Systems Constitutional: no symptoms reported EENTM: no symptoms reported Respiratory: no symptoms reported Cardiovascular: no symptoms reported Gastrointestinal: no symptoms reported Genitourinary: see HPI : Yes Musculoskeletal: no symptoms reported Skin: no symptoms reported Psychiatric/Neurological: No Symptoms Reported Endocrine: No Symptoms Reported Hematologic/Lymphatic: No Symptoms Reported All Other Systemes Reviewed Negative Unless Noted: Yes Past Jtuipeh-Tuuszu-Rjznjp Hx Past Med/Social Hx: Reviewed Nursing Past Med/Soc Hx Patient Social History Alcohol Use: Denies Use Recreational Drug Use: No Smoking Status: Never a Smoker 2nd Hand Smoke Exposure: No Recent Foreign Travel: No (N) Contact w/Someone Who Travel: No (N) Recent Hopitalizations: No Physical Abuse: No Sexual Abuse: No Mistreated: No Fear: No Immunizations Up To Date Tetanus Booster (TDap): Unknown Seasonal Allergies Seasonal Allergies: No Past Medical History Surgeries: Yes (LITHOTRIPSY) Respiratory: No Cardiac: No Neurological: No Genitourinary: Yes (MEDULARY SPONGE KIDNEY DISEASE) Kidney Stones Gastrointestinal: Yes Diverticulosis, Esophagitis Musculoskeletal: No Endocrine: No HEENT: No Cancer: No Psychosocial: No Integumentary: No Blood Disorders: No Family Medical History No Pertinent Family Hx Physical Exam Vital Signs Vital Signs - First Documented 10/18/18 12:43 Temp 97.1 Pulse 84 Resp 20 B/P (MAP) 138/86 (103) Pulse Ox 97 O2 Delivery Room Air Capillary Refill : Height, Weight, BMI Height: 5'8.00" Weight: 262lbs. oz. 118.910685li; BMI Method:Stated General Appearance: WD/WN, no apparent distress, obese HEENT: PERRL/EOMI, normal ENT inspection Neck: non-tender, full range of motion, supple, normal inspection Cardiovascular: regular rate, rhythm, no edema, no gallop, no murmur Respiratory: chest non-tender, lungs clear, normal breath sounds, no respiratory distress Gastrointestinal: normal bowel sounds, tenderness (mild, in suprapubic regiona) Pelvic: normal external exam, normal adnexa, no cerv. motion tender, tender adnexa (right sided. No masses but exam limited by tenderness) Back: normal inspection, no CVA tenderness, no vertebral tenderness Extremities: normal range of motion, non-tender, normal inspection, no pedal edema, no calf tenderness Neurologic/Psychiatric: no motor/sensory deficits, alert, oriented x 3 Skin: normal color, warm/dry Progress/Results/Core Measures Suspected Sepsis SIRS Temperature: Pulse: Respiratory Rate: Laboratory Tests 10/18/18 12:58: White Blood Count 8.3 Blood Pressure / Mean: Laboratory Tests 10/18/18 12:58: Creatinine 0.56L, Platelet Count 226, Total Bilirubin 0.4 Results/Orders Lab Results Laboratory Tests Test 10/18/18 12:32 10/18/18 12:58 Range/Units Urine Color YELLOW Urine Clarity CLEAR Urine pH 6.0 5-9 Urine Specific [place] >=1.030 1.016-1.022 Urine Protein TRACE H NEGATIVE Urine Glucose (UA) NEGATIVE NEGATIVE Urine Ketones NEGATIVE NEGATIVE Urine Nitrite NEGATIVE NEGATIVE Urine Bilirubin NEGATIVE NEGATIVE Urine Urobilinogen 0.2 NORMAL MG/DL Urine Leukocyte Esterase 2+ H NEGATIVE Urine RBC (Auto) 3+ H NEGATIVE Urine RBC 5-10 H /HPF Urine WBC 25-50 H /HPF Urine Squamous Epithelial Cells 25-50 H /HPF Urine Crystals NONE /LPF Urine Bacteria MODERATE H /HPF Urine Casts NONE /LPF Urine Mucus SMALL H /LPF Urine Culture Indicated NO White Blood Count 8.3 4.3-11.0 10^3/uL Red Blood Count 4.87 4.35-5.85 10^6/uL Hemoglobin 14.3 11.5-16.0 G/DL Hematocrit 43 35-52 % Mean Corpuscular Volume 88 80-99 FL Mean Corpuscular Hemoglobin 29 25-34 PG Mean Corpuscular Hemoglobin Concent 33 32-36 G/DL Red Cell Distribution Width 12.6 10.0-14.5 % Platelet Count 226 130-400 10^3/uL Mean Platelet Volume 10.9 H 7.4-10.4 FL Neutrophils (%) (Auto) 64 42-75 % Lymphocytes (%) (Auto) 27 12-44 % Monocytes (%) (Auto) 6 0-12 % Eosinophils (%) (Auto) 2 0-10 % Basophils (%) (Auto) 1 0-10 % Neutrophils # (Auto) 5.3 1.8-7.8 X 10^3 Lymphocytes # (Auto) 2.3 1.0-4.0 X 10^3 Monocytes # (Auto) 0.5 0.0-1.0 X 10^3 Eosinophils # (Auto) 0.1 0.0-0.3 10^3/uL Basophils # (Auto) 0.1 0.0-0.1 10^3/uL Neutrophils % (Manual) 64 % Lymphocytes % (Manual) 27 % Monocytes % (Manual) 6 % Eosinophils % (Manual) 2 % Basophils % (Manual) 1 % Sodium Level 141 135-145 MMOL/L Potassium Level 4.0 3.6-5.0 MMOL/L Chloride Level 102 98-107 MMOL/L Carbon Dioxide Level 16 L 21-32 MMOL/L Anion Gap 23 H 5-14 MMOL/L Blood Urea Nitrogen 7 7-18 MG/DL Creatinine 0.56 L 0.60-1.30 MG/DL Estimat Glomerular Filtration Rate > 60 BUN/Creatinine Ratio 13 Glucose Level 88 70-105 MG/DL Calcium Level 9.1 8.5-10.1 MG/DL Corrected Calcium 8.9 8.5-10.1 MG/DL Total Bilirubin 0.4 0.1-1.0 MG/DL Aspartate Amino Transf (AST/SGOT) 15 5-34 U/L Alanine Aminotransferase (ALT/SGPT) 11 0-55 U/L Alkaline Phosphatase 89 40-136 U/L Total Protein 7.2 6.4-8.2 GM/DL Albumin 4.3 3.2-4.5 GM/DL Human Chorionic Gonadotropin, Quant 366 H <5 MIU/ML My Orders Orders - KAYLEY CA MD Ua Culture If Indicated (10/18/18 12:44) Cbc With Automated Diff (10/18/18 12:44) Comprehensive Metabolic Panel (10/18/18 12:44) Hcg,Quantitative (10/18/18 12:44) Fentanyl Injection (Sublimaze Injection (10/18/18 13:08) Ondansetron Injection (Zofran Injectio (10/18/18 13:15) Manual Differential (10/18/18 12:58) Medications Given in ED Current Medications Medications Dose Ordered Sig/Carlos Eduardo Route Start Time Stop Time Status Last Admin Dose Admin Ondansetron HCl 4 mg ONCE ONCE IVP 10/18/18 13:15 10/18/18 13:16 DC 10/18/18 13:15 4 MG Vital Signs/I&O 10/18/18 12:43 Temp 97.1 Pulse 84 Resp 20 B/P (MAP) 138/86 (103) Pulse Ox 97 O2 Delivery Room Air Capillary Refill : Progress Note : Time: 14:19 Progress Note Discussed the risk of ectopic and early miscarriage. Due to nonavailability of ultrasound here, will refer to ER in [place]. Patient and understand and agree with the plan. They prefer POV transportation and except the risk of this. Consults Consults : Consulting Physician: KULWANT FORD MD Consults Notes Discussed this case. Due to nonavailability of ultrasound here, will send to ER in [place]. I discussed at length with patient. She understands and agrees. She prefers traveled by POV accepts the risk of same. Departure Impression Primary Impression: Pelvic pain Additional Impression: First trimester bleeding Disposition: XFER SHT-TRM HOSP Condition: Stable Departure-Patient Inst. Decision time for Depature: 14:20 Referrals: JENI BATES APRN (PCP/Family) Primary Care Physician Patient Instructions: Acute Pelvic Pain (DC), Threatened Miscarriage (DC) Add. Discharge Instructions: To go directly to the ER at [place]. All discharge instructions reviewed with patient and/or family. Voiced understanding. KAYLEY CA MD Oct 18, 2018 12:50
[2018-10-18] MEDS ORDERED: fentaNYL INJECTION 100 MCG/2 ML AMP IVP STA (13:08)
[2018-10-18] MEDS ORDERED: ONDANSETRON 4 MG/2 ML (SDV) Z0FRAN IVP ONE (13:15)
[2018-10-18 13:41] LABS: WHITE BLOOD COUNT 8.3 10^3/uL (4.3-11.0)
[2018-10-18 13:42] LABS: HEMATOCRIT 43 % (35-52); HEMOGLOBIN 14.3 G/DL (11.5-16.0); MEAN CORPUSCULAR HEMOGLOBIN 29 PG (25-34); MEAN CORPUSCULAR HGB CONC 33 G/DL (32-36); MEAN CORPUSCULAR VOLUME 88 FL (80-99); PLATELET COUNT 226 10^3/uL (130-400); RED CELL DISTRIBUTION WIDTH 12.6 % (10.0-14.5)
[2018-10-18 13:43] LABS: BASOPHILS % (AUTO) 1 % (0-10); EOSINOPHILS % (AUTO) 2 % (0-10); LYMPHOCYTES # (AUTO) 2.3 X 10^3 (1.0-4.0); LYMPHOCYTES % (AUTO) 27 % (12-44); MEAN PLATELET VOLUME 10.9 FL (7.4-10.4); MONOCYTES % (AUTO) 6 % (0-12); NEUTROPHILS # (AUTO) 5.3 X 10^3 (1.8-7.8); NEUTROPHILS % (AUTO) 64 % (42-75)
[2018-10-18 13:44] LABS: EOSINOPHILS # (AUTO) 0.1 10^3/uL (0.0-0.3); MONOCYTES # (AUTO) 0.5 X 10^3 (0.0-1.0)
[2018-10-18 13:51] LABS: BASOPHILS # (AUTO) 0.1 10^3/uL (0.0-0.1); BASOPHILS % (MANUAL) 1 %; EOSINOPHILS % (MANUAL) 2 %; LYMPHOCYTES % (MANUAL) 27 %; MONOCYTES % (MANUAL) 6 %; NEUTROPHILS % (MANUAL) 64 %
[2018-10-18 13:52] LABS: CARBON DIOXIDE 16 MMOL/L (21-32); CHLORIDE 102 MMOL/L (98-107); SODIUM 141 MMOL/L (135-145)
[2018-10-18 13:53] LABS: ALANINE AMINOTRANSFERASE 11 U/L (0-55); ALBUMIN 4.3 GM/DL (3.2-4.5); ALKALINE PHOSPHATASE 89 U/L (40-136); BILIRUBIN,TOTAL 0.4 MG/DL (0.1-1.0); BUN/CREATININE RATIO 13; CALCIUM 9.1 MG/DL (8.5-10.1); CREATININE SERUM 0.56 MG/DL (0.60-1.30); GFR ESTIMATED > 60; GLUCOSE 88 MG/DL (70-105); TOTAL PROTEIN 7.2 GM/DL (6.4-8.2)
[2018-10-18 13:54] LABS: CLARITY,URINE CLEAR; COLOR,URINE YELLOW
[2018-10-18 13:55] LABS: BILIRUBIN,URINE NEGATIVE (NEGATIVE); GLUCOSE, URINE (UA) NEGATIVE (NEGATIVE); KETONES,URINE NEGATIVE (NEGATIVE); LEUKOCYTE ESTERASE ,URINE 2+ (NEGATIVE); NITRITE,URINE NEGATIVE (NEGATIVE); PROTEIN,URINE TRACE (NEGATIVE); UROBILINOGEN,URINE 0.2 MG/DL (NORMAL); WBC,URINE 25-50 /HPF
[2018-10-18 13:56] LABS: BACTERIA,URINE MODERATE /HPF; SQUAMOUS EPITHELIAL CELL,UR 25-50 /HPF
--- NOTE | 2018-10-18 14:29 | NUR ---
IV wrapped with gauze for transportation by private vehcile to via [facility].
--- NOTE | 2018-10-18 14:32 | NUR ---
Dr. Abbott wants Dr. Webb to treat pt for UTI and wants to wait until pt arrived at [facility] to receive anymore pain medication.
--- NOTE | 2018-10-18 14:37 | NUR ---
Pt left ER and headed to [address].
--- NOTE | 2018-10-18 15:34 | NUR ---
TO ULTRASOUND AT THIS TIME
[2018-10-18] MEDS ORDERED: fentaNYL INJECTION 100 MCG/2 ML AMP ONE (15:46)
[2018-10-18] MEDS ORDERED: fentaNYL INJECTION 100 MCG/2 ML AMP IVP ONE ×3 (16:00→18:30)
--- NOTE | 2018-10-18 16:51 | Diagnostic Imaging Report ---
INDICATION: Suprapubic pain. TECHNIQUE: Multiple real-time grayscale images were obtained of the pelvis in various projections, endovaginally. COMPARISON: Prior examination from 10/09/2018. FINDINGS: Uterus measures 10.6 x 7.1 x 5.4 cm. Endometrial thickness is 7 mm. There are no myometrial or endometrial masses. There is no evidence of an intrauterine . Both ovaries are normal in size and morphology and demonstrate normal blood flow. There is a 2.8 cm right ovarian cyst. There are no other adnexal masses. The previously seen free fluid has resolved. IMPRESSION: 1. No evidence of intrauterine or ectopic . 2. Simple appearing 2.8 cm right ovarian cyst. Dictated by: Dictated on workstation # [id number]
[2018-10-18] MEDS ORDERED: KETOROLAC 30 MG/ML VIAL IVP PRN (19:45)
--- OUTSIDE RECORDS SUMMARY | 2018-10-18 20:11 | XMS REPORT | Clinical Summary ---
Author Author [facility] Organization [facility] Address Unknown Phone Unavailable Care Team Providers Care Plate Conditioner Name Role Phone Cherie HEAD SILVERMAN PCP Source Comments Some departments are not documenting in the electronic medical record. If you do not see the information that you expected, contact Release of Information in the Health Information Management department at [phone] for further assistance in locating additional records.[facility] Allergies Comments Active Allergy Reactions Severity Noted Date Penicillins RASH Medium 03/22/2017 Pt reports ulcers down the length of esophagus and in stomach. Spice Flavor SEE COMMENTS Low 05/19/2017 Pt reports ulcers down the length of esophagus and in stomach. Tomato SEE COMMENTS Low 05/19/2017 Medications End Date Status Medication Sig Dispensed Refills Start Date Active IBUPROFEN PO Take by [address] mouth. Active omep[address]ole [address](+) Take 20 mg by 0 (PRILOSEC) 20 mg capsule mouth daily before breakfast. Active norgestimate/ethinyl Take 1 tablet 0 estradiol(+) by mouth (ORTHO-CYCLEN (28); daily. SPRINTEC (28); MONONESSA (28); PREVIFEM) tablet Active fluoxetine(+) (PROZAC) 40 Take 40 mg by 0 mg capsule mouth daily. Active phenazopyridine Take 200 mg 0 (PYRIDIUM) 200 mg tablet by mouth three times daily as needed for Pain. Take after meals for up to 2 days. Active clonazePAM (KLONOPIN) 0.5 Take 0.5 mg 0 mg tablet by mouth twice daily. Active amitriptyline (ELAVIL) 10 Take 10 mg by 0 mg tablet mouth at bedtime as needed. Active Problems Problem Noted Date Voiding dysfunction 06/08/2018 Overview: 06/08/18: voiding every hour, urge, nocturia x 3, PVR 52cc, intermittent episodes of difficulty urinating L ast Assessment & Plan: Referral to PFPT May need to learn CIC Flank pain 06/08/2018 Overview: 06/08/18 left flank pain x 1 month, requested CT scans for review L ast Assessment & Plan: Requested CT scans for review FU with PMD as well regarding other sources of flank pain History of recurrent UTIs 06/08/2018 Overview: History of UTIs as a child 06/08/18: requested records from PMD L ast Assessment & Plan: Request urine cultures for review - reviewed with Erick [facility] Vitamin cocktail Manage constipation Kidney stone 05/26/2017 Overview: with history of medullary sponge kidney, recurrent UTIs, flank pain. She has history of recurrent stones ('black crystals") Voids q30 mintures; nocturia x 2. Drinks 40oz water. Describes dyspareunia On macrobid per her pmd for post-coital and swimming prophylaxis. On ycobenzaprine for "spasms." Renal US: unremarkable 06/08/18: history of stones, ER x 10, multiple CT scans L ast Assessment & Plan: Requested CT scans for review Strain urine for stone collection and analysis Hold on 24 hour urine Referral to Nephrology FU PRN Family History Medical History Relation Name Comments Heart Disease Brother Neurologic Disorder Brother Heart Disease Father Kidney Disease Father Cancer-Prostate Maternal Grandfather Heart Attack Maternal Grandfather Stroke Maternal Grandfather Cancer Maternal Grandmother Diabetes Maternal Grandmother Heart Disease Maternal Grandmother Hypertension Maternal Grandmother Stroke Paternal Grandmother Relation Name Status Comments Brother Father Maternal Grandfather Maternal Grandmother Paternal Grandmother Social History Date Tobacco Use Types Packs/Day Years Used Quit: 05/14/2008 Former Smoker Cigarettes Smokeless Tobacco: Never Used Alcohol Use Drinks/Week oz/Week Comments Yes social drinker only Sex Assigned at Date Recorded Not on file Industry Job Start Date Occupation Not on file Not on file Not on file Travel End Travel History Travel Start No recent travel history available. Last Filed Vital Signs Time Taken Vital Sign Reading 06/08/2018 10:25 AM PSYCH SPECIALIST Blood Pressure 110/71 06/08/2018 10:25 AM PSYCH SPECIALIST Pulse 93 03/22/2017 4:04 PM CDT Temperature 36.4 C (97.6 F) - Respiratory Rate - 03/22/2017 10:00 PM CDT Oxygen Saturation 94% - Inhaled Oxygen - Concentration 06/08/2018 10:25 AM PSYCH SPECIALIST Weight 125.6 kg (276 lb 12.8 oz) 06/08/2018 10:25 AM PSYCH SPECIALIST Height 172.7 cm (5' 8") 06/08/2018 10:25 AM PSYCH SPECIALIST Body Mass Index 42.09 Plan of Treatment Health Maintenance Due Date Last Done Comments PHYSICAL (COMPREHENSIVE) 10/08/1995 EXAM HIV SCREENING 10/08/2003 DTAP/TDAP VACCINES (1 - 2006 Tdap) INFLUENZA VACCINE 03/04/2018 06/20/2008 CERVICAL CANCER SCREENING 2018 Results Not on filefrom Last 3 Months Advance Directives Patient has advance care planning documents on file. For more information, please contact: [facility] [address] [place] [address]
[2018-10-18 20:35] VITALS: BP 122/73
[2018-10-18 21:10] VITALS: BP 115/64
[2018-10-18] MEDS ORDERED: ONDANSETRON 4 MG/2 ML (SDV) Z0FRAN IVP PRN (21:45)
[2018-10-18] MEDS ORDERED: ACETAMINOPHEN 500 MG TAB (TYLENOL) PO PRN (21:45)
[2018-10-18] MEDS ORDERED: LACTATED RINGERS 1,000 ML IV ONE (21:50)
[2018-10-18] MEDS: LACTATED RINGERS 1,000 ML IV SCH (21:56)
[2018-10-18] MEDS: HYDROcodone/APAP 5 MG/325 MG (LORTAB) TAB PO PRN (22:06)
[2018-10-18] MEDS ORDERED: CALCIUM CARBONATE 500 MG (TUMS) TAB.CHEW PO ONE (23:45)
[2018-10-18 23:46] VITALS: BP 127/72
[2018-10-18] MEDS ORDERED: CALCIUM CARBONATE 500 MG (TUMS) TAB.CHEW ONE (23:47)
[2018-10-18] MEDS: fentaNYL INJECTION 100 MCG/2 ML AMP IVP PRN (23:52)
--- NOTE | 2018-10-18 23:52 | NUR ---
Fresh ice water provided to patient at this time, reminded patient of NPO at midnight status. Patient verbalized understanding. Patient requesting PRN IV pain medication at this time and c/o acid reflux that she typically takes zantac for at bedtime; see emar for details. Patient's mother remains at bedside. No further needs or concerns at this time. Call light within reach. Patient denies wanting to received flu vaccine during this hospital stay.
[2018-10-19] MEDS: fentaNYL INJECTION 100 MCG/2 ML AMP IVP PRN ×3 (01:46→07:47)
[2018-10-19 04:42] VITALS: BP 122/70
[2018-10-19 06:43] LABS: BILIRUBIN,URINE NEGATIVE (NEGATIVE); CLARITY,URINE CLEAR; COLOR,URINE AMBER; GLUCOSE, URINE (UA) NEGATIVE (NEGATIVE); KETONES,URINE NEGATIVE (NEGATIVE); LEUKOCYTE ESTERASE ,URINE 1+ (NEGATIVE); NITRITE,URINE NEGATIVE (NEGATIVE); PH,URINE 6 (5-9); PROTEIN,URINE 2+ (NEGATIVE); UROBILINOGEN,URINE 1 MG/DL (NORMAL)
[2018-10-19 06:53] LABS: BACTERIA,URINE FEW /HPF; RBC,URINE 0-2 /HPF; WBC,URINE 0-2 /HPF
[2018-10-19 07:04] LABS: BASOPHILS % (AUTO) 0 % (0-10); EOSINOPHILS # (AUTO) 0.2 10^3/uL (0.0-0.3); EOSINOPHILS % (AUTO) 3 % (0-10); HEMATOCRIT 38 % (35-52); HEMOGLOBIN 12.7 G/DL (11.5-16.0); LYMPHOCYTES # (AUTO) 2.8 X 10^3 (1.0-4.0); LYMPHOCYTES % (AUTO) 40 % (12-44); MEAN CORPUSCULAR HEMOGLOBIN 30 PG (25-34); MEAN CORPUSCULAR HGB CONC 33 G/DL (32-36); MEAN CORPUSCULAR VOLUME 89 FL (80-99); MEAN PLATELET VOLUME 11.4 FL (7.4-10.4); MONOCYTES # (AUTO) 0.6 X 10^3 (0.0-1.0); MONOCYTES % (AUTO) 8 % (0-12); NEUTROPHILS # (AUTO) 3.4 X 10^3 (1.8-7.8); NEUTROPHILS % (AUTO) 48 % (42-75); PLATELET COUNT 205 10^3/uL (130-400); RED CELL DISTRIBUTION WIDTH 13.1 % (10.0-14.5)
[2018-10-19 07:28] LABS: ALANINE AMINOTRANSFERASE 11 U/L (0-55); ALBUMIN 3.6 GM/DL (3.2-4.5); ALKALINE PHOSPHATASE 73 U/L (40-136); BILIRUBIN,TOTAL 0.3 MG/DL (0.1-1.0); BUN/CREATININE RATIO 20; CARBON DIOXIDE 20 MMOL/L (21-32); CHLORIDE 106 MMOL/L (98-107); CREATININE SERUM 0.66 MG/DL (0.60-1.30); GFR ESTIMATED > 60; GLUCOSE 88 MG/DL (70-105); POTASSIUM 3.9 MMOL/L (3.6-5.0); SODIUM 137 MMOL/L (135-145)
[2018-10-19 07:49] VITALS: BP 119/61
[2018-10-19] MEDS: LACTATED RINGERS 1,000 ML IV SCH (08:10)
--- NOTE | 2018-10-19 09:40 | NUR ---
Dr Schofield here to see pt. No orders received. Addendum: 10/19/18 at 1038 by STANTON MOORE RN Discussed plan of care with pt.
--- NOTE | 2018-10-19 09:50 | NUR ---
Dr Waite here. Discussed plan of care with pt. Discharge discussed.
[2018-10-19] MEDS ORDERED: METHOTREXATE 50 MG/2 ML PF IM NR (10:00)
[2018-10-19] MEDS ORDERED: KETOROLAC 30 MG/ML VIAL IVP SCH (10:15)
[2018-10-19] MEDS ORDERED: IBUP-1773 PO (10:19)
[2018-10-19] MEDS ORDERED: OXYC-529 PO (10:19)
[2018-10-19] MEDS ORDERED: ACET-2267 PO (10:19)
[2018-10-19] MEDS ORDERED: PROM25TA14 PO (10:19)
--- NOTE | 2018-10-19 10:55 | Short Stay Summary ---
History of Present Illness History of Present Illness Reason for visit/HPI 28 yo F that was seen in ER in [place] that was admitted for observation for pain control. Patient has + HCG with normal US. Denies any more bleeding. She is feeling more pressure and cramping this AM. Discussed case with Dr Barillas and awaiting HCG levels Date of Admission Oct 18, 2018 at 18:44 Date of Discharge 10/19/2018 Time Seen by Provider: 09:45 Attending Physician Kesha Titus MD Admitting Physician Cherie Carney Aprn Consult KULWANT FORD MD Allergies and Home Medications Allergies Coded Allergies: Penicillins (Unverified Allergy, Unknown, 02/25/17) Home Medications Acetaminophen 500 Mg Tablet, 1,000 MG PO TID Prescribed by: MANI BARILLAS on 10/19/18 101 Alprazolam 1 Mg Tablet, 1 MG PO DAILY, (Reported) Cefdinir 300 Mg Capsule, 300 MG PO BID Prescribed by: HANY VELASQUEZ on 02/25/172038 Cyclobenzaprine HCl 10 Mg Tablet, 10 MG PO TID PRN for MUSCLE SPASMS, (Reported) Diphenhydramine HCl 25 Mg Capsule, 50 MG PO PRN PRN for allergies, (Reported) Fluoxetine HCl 40 Mg Capsule, 40 MG PO DAILY, (Reported) Hydrochlorothiazide 12.5 Mg Tablet, 12.5 MG PO DAILY, (Reported) Hydrocodone Bit/Acetaminophen 1 Each Tablet, 1 EACH PO Q4H PRN for pain Prescribed by: HANY VELASQUEZ on 02/25/172131 Hydrocodone Bit/Acetaminophen 1 Ea Tablet, 1 EACH PO Q6H Prescribed by: YAYA SNOWDEN on 10/09/18 1602 Hydrocodone/Acetaminophen 1 Each Tablet, 1 EACH PO Q6H PRN for prn, (Reported) Hyoscyamine Sulfate 0.125 Mg Tab.subl, 0.125 MG SL Q6H PRN for SPASMS Prescribed by: HANY VELASQUEZ on 02/25/172121 Ibuprofen 600 Mg Tablet, 600 MG PO Q6H Prescribed by: MANI BARILLAS on 10/19/18 1019 Metoclopramide HCl 10 Mg Tablet, 10 MG PO QID PRN for NAUSEA/VOMITING-1ST LINE, (Reported) Nitrofurantoin Monohyd/M-Cryst 100 Mg Capsule, 1 TAB PO PRN, (Reported) Norgestimate-Ethinyl Estradiol 1 Each Tablet, 1 EACH PO DAILY, (Reported) Omeprazole 20 Mg Capsule.dr, 20 MG PO DAILY, (Reported) Ondansetron 8 Mg Tab.rapdis, 8 MG PO Q6H PRN for NAUSEA/VOMITING-1ST LINE Prescribed by: HANY VELASQUEZ on 02/25/172038 Oxycodone HCl 5 Mg Tablet, 5 MG PO Q6H PRN for pain Prescribed by: MANI BARILLAS on 10/19/18 101 Phenazopyridine HCl 200 Mg Tablet, 1 TAB PO Q8H PRN for pain Prescribed by: HANY VELASQUEZ on 02/25/172038 Promethazine HCl 25 Mg Tablet, 25 MG PO Q6H PRN for NAUSEA/VOMITING Prescribed by: MANI BARILLAS on 10/19/18 101 Patient Home Medication List Home Medication List Reviewed: Yes Past Hzdzkkn-Wfzior-Xaedbk Hx Patient Social History Marrital Status: Alcohol Use: Denies Use Recreational Drug Use: No Smoking Status: Never a Smoker 2nd Hand Smoke Exposure: No Recent Foreign Travel: No Contact w/other who traveled: No Recent Hopitalizations: No Recent Infectious Disease Expo: No Immunizations Up To Date Tetanus Booster (TDap): Unknown Seasonal Allergies Seasonal Allergies: No Surgeries Yes (LITHOTRIPSY) Respiratory No Cardiovascular No Neurological No Reproductive System : Yes Last Menstrual Period: Sep 17, 2018 Genitourinary Yes (MEDULARY SPONGE KIDNEY DISEASE) Kidney Stones Gastrointestinal Yes Diverticulosis, Esophagitis Musculoskeletal No Endocrine History of Endocrine Disorders: No HEENT History of HEENT Disorders: No Cancer No Psychosocial History of Psychiatric Problem: No Integumentary History of Skin or Integumenta: No Blood Transfusions History of Blood Disorders: No Family Medical History Significant Family History: No Pertinent Family Hx Review of Systems Constitutional: No chills, No fever EENTM: no symptoms reported Cardiovascular: no symptoms reported Gastrointestinal: abdominal pain, nausea Genitourinary: dysuria, frequency Musculoskeletal: no symptoms reported Skin: no symptoms reported Psychiatric/Neurological: No Symptoms Reported Physical Exam Vital Signs Vital Signs - First Documented 10/18/18 12:43 Temp 97.1 Pulse 84 Resp 20 B/P (MAP) 138/86 (103) Pulse Ox 97 O2 Delivery Room Air Capillary Refill : Less Than 3 Seconds Height, Weight, BMI Height: 5'8.00" Weight: 260lbs. 0oz. 117.230055im; BMI Method:Stated General Appearance: No Apparent Distress, WD/WN Respiratory: Chest Non Tender, Lungs Clear, Normal Breath Sounds, No Accessory Muscle Use, No Respiratory Distress Cardiovascular: Regular Rate, Rhythm, No Edema, No Murmur Gastrointestinal: Other (lower abdominal pain + ttp, no rebound or gaurding) Back: No CVA Tenderness Extremity: Normal Capillary Refill, No Calf Tenderness, No Pedal Edema Neurologic/Psychiatric: Alert, Oriented x3, No Motor/Sensory Deficits, Normal Mood/Affect, lithographic stripper II-XII Norm as Tested Skin: Normal Color, Warm/Dry Clinical Quality Measures DVT/VTE Risk/Contraindication: Risk Factor Score Per Nursin RFS Level Per Nursing on Admit: 1=Low/No VTE PPX Short Stay Diagnosis Discharge Diagnosis-Short Stay Admission Diagnosis: Pelvic pain + HCG Final Discharge Diagnosis: Non Viable Pelvic Pain Conclusion Labs Laboratory Tests 10/18/18 12:32: Urine Color YELLOW, Urine Clarity CLEAR, Urine pH 6.0, Urine Specific [place] >= 1.030, Urine Protein TRACEH, Urine Glucose (UA) NEGATIVE, Urine Ketones NEGATIVE , Urine Nitrite NEGATIVE, Urine Bilirubin NEGATIVE, Urine Urobilinogen 0.2, Urine Leukocyte Esterase 2+H, Urine RBC (Auto) 3+H, Urine RBC 5-10H, Urine WBC 25-50H, Urine Squamous Epithelial Cells 25-50H, Urine Crystals NONE, Urine Bacteria MODERATEH, Urine Casts NONE, Urine Mucus SMALLH, Urine Culture Indicated NO 10/18/18 12:58: White Blood Count 8.3, Red Blood Count 4.87, Hemoglobin 14.3, Hematocrit 43, Mean Corpuscular Volume 88, Mean Corpuscular Hemoglobin 29, Mean Corpuscular Hemoglobin Concent 33, Red Cell Distribution Width 12.6, Platelet Count 226, Mean Platelet Volume 10.9H, Neutrophils (%) (Auto) 64, Lymphocytes (%) (Auto) 27 , Monocytes (%) (Auto) 6, Eosinophils (%) (Auto) 2, Basophils (%) (Auto) 1, Neutrophils # (Auto) 5.3, Lymphocytes # (Auto) 2.3, Monocytes # (Auto) 0.5, Eosinophils # (Auto) 0.1, Basophils # (Auto) 0.1, Neutrophils % (Manual) 64, Lymphocytes % (Manual) 27, Monocytes % (Manual) 6, Eosinophils % (Manual) 2, Basophils % (Manual) 1, Sodium Level 141, Potassium Level 4.0, Chloride Level 102, Carbon Dioxide Level 16L, Anion Gap 23H, Blood Urea Nitrogen 7, Creatinine 0.56L, Estimat Glomerular Filtration Rate > 60, BUN/Creatinine Ratio 13, Glucose Level 88, Calcium Level 9.1, Corrected Calcium 8.9, Total Bilirubin 0.4 , Aspartate Amino Transf (AST/SGOT) 15, Alanine Aminotransferase (ALT/SGPT) 11, Alkaline Phosphatase 89, Total Protein 7.2, Albumin 4.3, Human Chorionic Gonadotropin, Quant 366H 10/19/18 06:25: Urine Color AMBERH, Urine Clarity CLEAR, Urine pH 6, Urine Specific [place] 1.025H, Urine Protein 2+H, Urine Glucose (UA) NEGATIVE, Urine Ketones NEGATIVE, Urine Nitrite NEGATIVE, Urine Bilirubin NEGATIVE, Urine Urobilinogen 1, Urine Leukocyte Esterase 1+H, Urine RBC (Auto) 4+H, Urine RBC 0-2, Urine WBC 0-2, Urine Squamous Epithelial Cells 2-5, Urine Crystals NONE, Urine Bacteria FEWH, Urine Casts NONE, Urine Mucus MODERATEH, Urine Culture Indicated CULTURE PENDING 10/19/18 06:47: White Blood Count 7.0, Red Blood Count 4.30L, Hemoglobin 12.7, Hematocrit 38, Mean Corpuscular Volume 89, Mean Corpuscular Hemoglobin 30, Mean Corpuscular Hemoglobin Concent 33, Red Cell Distribution Width 13.1, Platelet Count 205, Mean Platelet Volume 11.4H, Neutrophils (%) (Auto) 48, Lymphocytes (%) (Auto) 40 , Monocytes (%) (Auto) 8, Eosinophils (%) (Auto) 3, Basophils (%) (Auto) 0, Neutrophils # (Auto) 3.4, Lymphocytes # (Auto) 2.8, Monocytes # (Auto) 0.6, Eosinophils # (Auto) 0.2, Basophils # (Auto) 0.0, Sodium Level 137, Potassium Level 3.9, Chloride Level 106, Carbon Dioxide Level 20L, Anion Gap 11, Blood Urea Nitrogen 13, Creatinine 0.66, Estimat Glomerular Filtration Rate > 60, BUN/ Creatinine Ratio 20, Glucose Level 88, Calcium Level 9.0, Corrected Calcium 9.3 , Total Bilirubin 0.3, Aspartate Amino Transf (AST/SGOT) 14, Alanine Aminotransferase (ALT/SGPT) 11, Alkaline Phosphatase 73, Total Protein 6.0L, Albumin 3.6, Human Chorionic Gonadotropin, Quant 318H Conclusion/Plan 28 yo F that was admitted for observation for pain control. Patient has had + HCG levels that have been stable for over a week. US does not show any viable . Concerns for possible ectopic vs early non viable preg. Copy Copies To 1: SELENA ABARCA MD, HOLLY R MD Oct 19, 2018 10:55
--- NOTE | 2018-10-19 11:12 | Discharge Instructions ---
Discharge [facility] Discharge Medications New, Converted or Re-Newed RX: RX on Chart New Medications: Acetaminophen (Tylenol Extra Strength) 500 Mg Tablet 1000 MG PO TID, #60 TAB Ibuprofen (Ibuprofen) 600 Mg Tablet 600 MG PO Q6H for PAIN, #60 TAB 0 Refills Oxycodone HCl (Oxycodone HCl) 5 Mg Tablet 5 MG PO Q6H PRN for pain, #20 TAB Promethazine HCl (Promethazine Tablet) 25 Mg Tablet 25 MG PO Q6H PRN for NAUSEA/VOMITING, #20 TAB Continued Medications: Fluoxetine HCl (Prozac) 40 Mg Capsule 40 MG PO DAILY, CAP Norgestimate-Ethinyl Estradiol (Sprintec 28 Day Tablet) 1 Each Tablet 1 EACH PO DAILY, TAB Omeprazole (Omeprazole) 20 Mg Capsule.dr 20 MG PO DAILY, CAP Ondansetron (Ondansetron Odt) 8 Mg Tab.rapdis 8 MG PO Q6H PRN for NAUSEA/VOMITING-1ST LINE, #10 TAB 0 Refills Discontinued Medications: Alprazolam (Xanax) 1 Mg Tablet 1 MG PO DAILY, TAB Cefdinir (Cefdinir) 300 Mg Capsule 300 MG PO BID, #14 CAP 0 Refills Cyclobenzaprine HCl (Cyclobenzaprine HCl) 10 Mg Tablet 10 MG PO TID PRN for MUSCLE SPASMS, TAB Diphenhydramine HCl (Benadryl) 25 Mg Capsule 50 MG PO PRN PRN for allergies, CAP Hydrochlorothiazide (Hydrochlorothiazide) 12.5 Mg Tablet 12.5 MG PO DAILY, TAB Hydrocodone Bit/Acetaminophen (Lortab 7.5 Mg Tablet) 1 Each Tablet 1 EACH PO Q4H PRN for pain, #14 TAB 0 Refills Hydrocodone Bit/Acetaminophen (Lortab 7.5 Mg Tablet) 1 Ea Tablet 1 EACH PO Q6H, #8 TAB 0 Refills Hydrocodone/Acetaminophen (Hydrocodon-Acetaminophen 5-300) 1 Each Tablet 1 EACH PO Q6H PRN for prn, TAB Hyoscyamine Sulfate (Levsin-Sl) 0.125 Mg Tab.subl 0.125 MG SL Q6H PRN for SPASMS, #30 TAB 0 Refills Metoclopramide HCl (Metoclopramide HCl) 10 Mg Tablet 10 MG PO QID PRN for NAUSEA/VOMITING-1ST LINE, TAB Nitrofurantoin Monohyd/M-Cryst (Macrobid 100 mg Capsule) 100 Mg Capsule 1 TAB PO PRN, CAP Phenazopyridine HCl (Pyridium) 200 Mg Tablet 1 TAB PO Q8H PRN for pain, #30 TAB 0 Refills Patient Instructions Goal/Follow Up Appt: Follow up with Dr Abarca on Thursday 10/26 Patient Instructions: - make sure to get your labs done on Friday to see if Methotrexate needs to be redosed Activity & Diet Discharge Diet: No Restrictions Activity as Tolerated: Yes Copy Copies To 1: SELENA ABARCA MD, HOLLY R MD Oct 19, 2018 11:12
[2018-10-19] MEDS: HYDROcodone/APAP 5 MG/325 MG (LORTAB) TAB PO PRN (12:06)
--- NOTE | 2018-10-19 12:25 | NUR ---
pt refused Flu vaccine.
--- NOTE | 2018-10-19 12:45 | NUR ---
Explained discharge and home care instructions to pt and . They verbalized understanding. Verified by signing signature page. This nurse answered questions. No other c/o at this time.
--- NOTE | 2018-10-19 12:50 | NUR ---
Pt discharge via wheelchair and accompanied via Cheri Elias RN to personal vehicle. All personal items with pt. Pt given Rx and follow up appointment. No s/s of distressed. No concerns voiced at this time.
--- NOTE | 2018-10-19 12:52 | Consultation ---
History of Present Illness History of Present Illness Patient Consulted On(deb/time) 10/19/18 10:00 Date Seen by Provider: Oct 19, 2018 Time Seen by Provider: 09:40 Reason for Visit: pelvic pain, + HCG History of Present Illness This is a 28 year old with LMP about 5 weeks ago that presented to [facility] ED after being seen at [facility]. She had been complaining of vaginal bleeding. She was initially seen on 10/09/18 with + HCG (in the 200 range ) with vaginal bleeding. US done then showed endometrial thickening of 7 mm, no adnexal masses, no intrauterine sac, no evidence of ectopic. There was fluid in the pelvis at that time. She presented to [facility] ED yesterday and had US that showed 7 mm endometrium, no intrauterine sac, no evidence of ectopic and the free fluid had resolved. HCG had risen minimally (366). She had, however, required multiple doses of fentanyl. She had not been given anything else (toradol, etc for pain). And was admitted for pain management. She is from [facility] and will deliver with Dr. Cutler. Today she has not had bleeding but does complain of some increase in pelvic pressure. She does have a history of kidney stones, but pain is not like that. Allergies and Home Medications Allergies Coded Allergies: Penicillins (Unverified Allergy, Unknown, 02/25/17) Home Medications Acetaminophen 500 Mg Tablet, 1,000 MG PO TID Prescribed by: MANI BARILLAS on 10/19/18 1019 Fluoxetine HCl 40 Mg Capsule, 40 MG PO DAILY, (Reported) Ibuprofen 600 Mg Tablet, 600 MG PO Q6H Prescribed by: MANI BARILLAS on 10/19/18 101 Norgestimate-Ethinyl Estradiol 1 Each Tablet, 1 EACH PO DAILY, (Reported) Omeprazole 20 Mg Capsule.dr, 20 MG PO DAILY, (Reported) Ondansetron 8 Mg Tab.rapdis, 8 MG PO Q6H PRN for NAUSEA/VOMITING-1ST LINE Prescribed by: HANY VELASQUEZ on 02/25/172038 Oxycodone HCl 5 Mg Tablet, 5 MG PO Q6H PRN for pain Prescribed by: MANI BARILLAS on 10/19/18 101 Promethazine HCl 25 Mg Tablet, 25 MG PO Q6H PRN for NAUSEA/VOMITING Prescribed by: MANI BARILLAS on 10/19/18 1019 Patient Home Medication List Home Medication List Reviewed: No Past Pkxatkk-Zbjuun-Ktwshm Hx Past Med/Social Hx: Reviewed Nursing Past Med/Soc Hx Patient Social History Alcohol Use: Denies Use Recreational Drug Use: No Smoking Status: Never a Smoker 2nd Hand Smoke Exposure: No Recent Foreign Travel: No Contact w/Someone Who Travel: No Recent Infectious Disease Expo: No Recent Hopitalizations: No Physical Abuse: No Sexual Abuse: No Mistreated: No Fear: No Immunizations Up To Date Tetanus Booster (TDap): Unknown Seasonal Allergies Seasonal Allergies: No Past Medical History Surgeries: Yes (LITHOTRIPSY) Respiratory: No Cardiac: No Neurological: No : Yes Last Menstrual Period: Sep 17, 2018 Hx : 3 Hx Para: 2 Hx Total # of Abortions (Sp): 0 Genitourinary: Yes (MEDULARY SPONGE KIDNEY DISEASE) Kidney Stones Gastrointestinal: Yes Diverticulosis, Esophagitis Musculoskeletal: No Endocrine: No HEENT: No Cancer: No Psychosocial: No Integumentary: No Blood Disorders: No Family Medical History No Pertinent Family Hx Review of Systems-General Constitutional: no symptoms reported Respiratory: no symptoms reported Cardiovascular: no symptoms reported Gastrointestinal: no symptoms reported Genitourinary: pain LMP: Sep 17, 2018 All Other Systems Reviewed Negative Unless Noted: Yes Physical Exam-General Problems Physical Exam Vital Signs Vital Signs - First Documented 10/18/18 12:43 Temp 97.1 Pulse 84 Resp 20 B/P (MAP) 138/86 (103) Pulse Ox 97 O2 Delivery Room Air Capillary Refill : Less Than 3 Seconds General Appearance: WD/WN, no apparent distress Assessment/Plan Assessment/Plan Admission Diagnosis/Plan 1. Vaginal bleeding 2. Pelvic pain 3. Elevated HCG Suspect early ectopic or missed Ab. However, without obvious evidence of the location of the ectopic, would not recommend that we proceed with surgical options. She is an excellent candidate for Methotrexate. Will dose Methotrexate today. She would like to follow up with Dr. Cutler in [facility] for labs. She needs labs on day 4 and 7. Hcg currently is 316. There should be reduction of 15%. If the HCG dose not reduce by 15%, then an additional dose should be given. Discussed with patient that bleeding and pain may increase before it decreases. She will be sent with antiinflammatory and pain medication, and anti emetic (promethazine). Addendum - Dr. Cutler is out of town and will not be in the office on Friday when labs should be drawn. Patient would require labs done on Friday. She can have those done and then I will call her if she needs an additional dose of Methotrexate. Admission Status: Observation Clinical Quality Measures DVT/VTE Risk/Contraindication: Risk Factor Score Per Nursin RFS Level Per Nursing on Admit: 1=Low/No VTE PPX MANI BARILLAS DO Oct 19, 2018 12:52
[2018-10-19] MEDS ORDERED: FLU QUADRIvalent (5+ YOA) 2018-2019 (AFLURIA) 0.5 ML IM ONE (13:00)
== END 2018-10-19 12:50 | disposition home or self-care (01) ==
LOC: EDUNIT# 12:27 → ER FS 12:28 → WS 18:44
PROVIDERS: ADMIT Family Medicine; ATTEND Family Medicine
DX: O20.9 Hemorrhage in early pregnancy, unspecified (principal); O99.89 Other specified diseases and conditions complicating pregnancy, childbirth and the puerperium; R10.2 Pelvic and perineal pain; Z3A.01 Less than 8 weeks gestation of pregnancy
CPT/HCPCS: 36415; 76801; 76817; 80053; 81000; 84144; 84702; 85007; 85025; 85027; 87088; 96361; 96372; 96375; 96376; G0378

== ENCOUNTER → 2018-10-23 | Outpatient (CLI) | payer MEDICAID ==
[~2018-10-23] MED LIST changes: +ACET-2267 PO; +IBUP-1773 PO; +OXYC-529 PO; +PROM25TA14 PO
[2018-10-23 15:08] LABS: HEMOGLOBIN 13.5 G/DL (11.5-16.0); MEAN PLATELET VOLUME 11.1 FL (7.4-10.4); RED CELL DISTRIBUTION WIDTH 12.3 % (10.0-14.5); WHITE BLOOD COUNT 8.2 10^3/uL (4.3-11.0)
[2018-10-23 16:00] LABS: ALANINE AMINOTRANSFERASE 22 U/L (0-55); ALBUMIN 3.8 GM/DL (3.2-4.5); ALKALINE PHOSPHATASE 72 U/L (40-136); BILIRUBIN,TOTAL 0.3 MG/DL (0.1-1.0); BUN/CREATININE RATIO 21; CALCIUM 9.2 MG/DL (8.5-10.1); CARBON DIOXIDE 21 MMOL/L (21-32); CHLORIDE 102 MMOL/L (98-107); CREATININE SERUM 0.52 MG/DL (0.60-1.30); GFR ESTIMATED > 60; GLUCOSE 130 MG/DL (70-105); POTASSIUM 3.9 MMOL/L (3.6-5.0); SODIUM 138 MMOL/L (135-145); TOTAL PROTEIN 6.7 GM/DL (6.4-8.2)
== END ==
LOC: LAB FS 14:38
PROVIDERS: ATTEND Family Medicine
DX: O20.9 Hemorrhage in early pregnancy, unspecified (principal); R10.2 Pelvic and perineal pain
CPT/HCPCS: 36415; 80053; 84702; 85027

== ENCOUNTER 2019-02-10 13:51 | Emergency (ER) | payer SELFPAY ==
[~2019-02-10] VITALS: Ht 172.7 cm; Wt 117.9 kg
[2019-02-10] MEDS ORDERED: ORPHENADRINE 60 MG/2 ML (NORFLEX) AMP IM ONE (14:30)
[2019-02-10] MEDS ORDERED: ONDANSETRON 4 MG (ZOFRAN) ORAL DISSOLVE TAB PO STA (14:30)
[2019-02-10] MEDS ORDERED: morphine PF (DURAMORPH) 10 MG/10 ML AMP IM ONE (14:30)
[2019-02-10] MEDS ORDERED: morphine INJ 10 MG/ML 1ML (SYR OR VIAL) IM STA (14:43)
[2019-02-10] MEDS ORDERED: CYCL10TA9 PO (14:57)
[2019-02-10] MEDS ORDERED: OXYC1TAB16 PO (14:57)
--- NOTE | 2019-02-10 14:58 | ED Back Pain ---
General Chief Complaint: Back Problems Stated Complaint: BACK/MACKENZIE LEG PAIN Nursing Triage Note: Patient c/o back pain. 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 Nursing Sepsis Screen: No Definite Risk Source of Information: Patient Exam Limitations: No Limitations History of Present Illness Date Seen by Provider: Feb 10, 2019 Time Seen by Provider: 15:00 Initial Comments Patient is a 28-year-old female presents acute onset low back pain radiating laterally to her lower pelvis. Symptom onset was 30 minutes prior to ED arrival while at work. Patient is a dark room and was lifting a large animal when back pain began. Patient denies extremity weakness loss of sensation, bowel or bladder dysfunction. Pain is 10 out of 10 sharp and worse with palpation and movement. No other acute symptoms or complaints. Location: Paraspinous Muscles Timing/Duration: 1/2 Hour Pain/Injury Location: Back Radiation: Buttocks Method of Injury: Other Modifying Factors: Improves With Movement Associated Symptoms: No numbness in legs/feet, No tingling in legs/feet, No sensory/motor loss; lower back pain; No loss of bladder control, No loss of bowel control Allergies and Home Medications Allergies Coded Allergies: Penicillins (Unverified Allergy, Unknown, 02/25/17) Home Medications Acetaminophen 500 Mg Tablet, 1,000 MG PO TID Prescribed by: MANI BARILLAS on 10/19/18 101 Fluoxetine HCl 40 Mg Capsule, 40 MG PO DAILY, (Reported) Ibuprofen 600 Mg Tablet, 600 MG PO Q6H Prescribed by: MANI BARILLAS on 10/19/18 101 Norgestimate-Ethinyl Estradiol 1 Each Tablet, 1 EACH PO DAILY, (Reported) Omeprazole 20 Mg Capsule.dr, 20 MG PO DAILY, (Reported) Ondansetron 8 Mg Tab.rapdis, 8 MG PO Q6H PRN for NAUSEA/VOMITING-1ST LINE Prescribed by: HANY VELASQUEZ on 02/25/172038 Oxycodone HCl 5 Mg Tablet, 5 MG PO Q6H PRN for pain Prescribed by: MANI BARILLAS on 10/19/18 101 Promethazine HCl 25 Mg Tablet, 25 MG PO Q6H PRN for NAUSEA/VOMITING Prescribed by: MANI BARILLAS on 10/19/18 1019 Patient Home Medication List Home Medication List Reviewed: Yes Review of Systems Constitutional: no symptoms reported EENTM: no symptoms reported Respiratory: no symptoms reported Cardiovascular: no symptoms reported Gastrointestinal: no symptoms reported Genitourinary: no symptoms reported Musculoskeletal: see HPI, back pain Skin: no symptoms reported Psychiatric/Neurological: No Symptoms Reported Past Nduohyn-Iyrilh-Nijlwj Hx Past Med/Social Hx: Reviewed Nursing Past Med/Soc Hx Patient Social History Alcohol Use: Denies Use Recreational Drug Use: No Smoking Status: Never a Smoker 2nd Hand Smoke Exposure: No Recent Foreign Travel: No Contact w/Someone Who Travel: No Recent Infectious Disease Expo: No Recent Hopitalizations: No Physical Abuse: No Sexual Abuse: No Mistreated: No Fear: No Immunizations Up To Date Tetanus Booster (TDap): Unknown Seasonal Allergies Seasonal Allergies: No Past Medical History Surgeries: Yes (LITHOTRIPSY) Respiratory: No Cardiac: No Neurological: No 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 0oz. 117.612471fr; BMI Method:Stated General Appearance: Anxious, Moderate Distress HEENT: PERRL/EOMI, Normal ENT Inspection Neck: Normal Inspection, Non Tender, Supple Cardiovascular: Regular Rate, Rhythm Respiratory: Lungs Clear, Normal Breath Sounds Back: No CVA Tenderness, Decreased Range of Motion, Muscle Spasm; No Vertebral Tenderness Neurologic/Psychiatric: Alert, Oriented x3, No Motor/Sensory Deficits Skin: Normal Color Progress/Results/Core Measures Results/Orders My Orders Orders - SANTIAGO NOYOLA DO Morphine Pf Inj (Duramorph Pf Inj) (02/10/19 14:30) Orphenadrine Injection (Norflex Injectio (02/10/19 14:30) Ondansetron Oral Dissolve Tab (Zofran (02/10/19 14:30) Morphine Injection (Morphine Injection (02/10/19 14:43) Vital Signs/I&O 02/10/19 14:00 Temp 98.7 Pulse 103 Resp 22 B/P (MAP) 136/92 (107) Pulse Ox 96 O2 Delivery Room Air Blood Pressure Mean: 107 Departure Communication (Admissions) Mechanical back pain with radicular symptoms. No neurologic deficits. Pain addressed improved in the emergency department. Recommend supportive care with PCP follow-up. Impression Primary Impression: Lumbar radiculopathy Disposition: HOME, SELF-CARE Condition: Improved Departure-Patient Inst. Referrals: [facility] (PCP) Primary Care Physician JENI BATES APRN (Family) Primary Care Physician Patient Instructions: Lumbar Muscle Strain (DC), Radiculopathy (DC) Add. Discharge Instructions: Please go home and rest. Avoid strenuous physical activity and heavy lifting. Take naproxen twice daily, and Percocet and Flexeril as needed for additional relief. Follow up with your PCP in 3-5 days for reevaluation. Return to the ED if new or worsening symptoms All discharge instructions reviewed with patient and/or family. Voiced understanding. Scripts Cyclobenzaprine HCl (Cyclobenzaprine HCl) 10 Mg Tablet 10 MG PO TID, #30 TAB Prov: SANTIAGO NOYOLA DO 02/10/19 Oxycodone HCl/Acetaminophen (Percocet 7.5-325 mg Tablet) 1 Each Tablet 1 TAB PO Q6H PRN for PAIN-MODERATE MDD 4 TABS for 7 Days, #14 TAB Prov: SANTIAGO NOYOLA DO 02/10/19 SANTIAGO NOYOLA DO Feb 10, 2019 14:58
[2019-02-10 15:30] VITALS: BP 139/84
== END 2019-02-10 15:30 | disposition home or self-care (01) ==
LOC: EDUNIT# 13:51 → ER FS 13:53
DX: M54.16 Radiculopathy, lumbar region (principal); Z88.0 Allergy status to penicillin; Z87.442 Personal history of urinary calculi; Z87.19 Personal history of other diseases of the digestive system
CPT/HCPCS: 96372; 99284

== ENCOUNTER 2019-05-30 17:28 | Emergency (ER) | payer SELFPAY ==
[~2019-05-30] VITALS: Ht 169.5 cm; Wt 124.8 kg
[~2019-05-30 17:28] MED LIST changes: -OMEP20CA12 PO; +OMEP20CA13 PO; +OXYC1TAB16 PO
[2019-05-30] MEDS ORDERED: ONDANSETRON 4 MG/2 ML (SDV) Z0FRAN IVP ONE (18:15)
[2019-05-30] MEDS ORDERED: NS IV 1000 ML 1,000 ML IV SCH (18:15)
[2019-05-30] MEDS ORDERED: KETOROLAC 30 MG/ML VIAL IVP ONE (18:15)
[2019-05-30 18:19] LABS: BILIRUBIN,URINE NEGATIVE (NEGATIVE); CLARITY,URINE CLEAR; COLOR,URINE DK YELLOW; GLUCOSE, URINE (UA) NEGATIVE (NEGATIVE); KETONES,URINE NEGATIVE (NEGATIVE); NITRITE,URINE NEGATIVE (NEGATIVE); PH,URINE 5.5 (5-9); PROTEIN,URINE NEGATIVE (NEGATIVE)
--- NOTE | 2019-05-30 18:22 | ED GU-Female ---
General Chief Complaint: - Urinary Stated Complaint: KIDNEY PAIN Nursing Triage Note: Patient c/o left sided flank pain extending to the right flank and lower abdominal pain. Patient also reports burning with urination. She states that she has medullary sponge kidney and frequently gets kidney stones. She reports thats what she thought was going on but since the burning with urination started she now thinks she has a kidney infection. Nursing Sepsis Screen: No Definite Risk Source: patient Exam Limitations: no limitations History of Present Illness Date Seen by Provider: May 30, 2019 Time Seen by Provider: 18:10 Initial Comments Patient complains of left flank pain radiating to left lower quadrant since yesterday. She has a history of medullary sponge kidney and kidney stones. She originally thought this may be kidney stone but now she is more convinced it is a urinary tract infection. She denies fevers or chills. She is nauseated. Allergies and Home Medications Allergies Coded Allergies: Penicillins (Unverified Allergy, Unknown, 02/25/17) Home Medications Acetaminophen 500 Mg Tablet, 1,000 MG PO TID Prescribed by: MANI BARILLAS on 10/19/18 1019 Cyclobenzaprine HCl 10 Mg Tablet, 10 MG PO TID Prescribed by: SANTIAGO NOYOLA on 02/10/19 1457 Fluoxetine HCl 40 Mg Capsule, 40 MG PO DAILY, (Reported) Hydrocodone Bit/Acetaminophen 1 Tab Tab, 1 EACH PO Q4-6HR PRN for PAIN-MODERATE Prescribed by: INO PINTO on 05/30/19 184 Ibuprofen 600 Mg Tablet, 600 MG PO Q6H Prescribed by: MANI BARILLAS on 10/19/18 1019 Norgestimate-Ethinyl Estradiol 1 Each Tablet, 1 EACH PO DAILY, (Reported) Omeprazole 20 Mg Capsule.dr, 20 MG PO DAILY, (Reported) Ondansetron 8 Mg Tab.rapdis, 8 MG PO Q6H PRN for NAUSEA/VOMITING-1ST LINE Prescribed by: HANY VELASQUEZ on 02/25/172038 Oxycodone HCl 5 Mg Tablet, 5 MG PO Q6H PRN for pain Prescribed by: MANI BARILLAS on 10/19/18 1019 Oxycodone HCl/Acetaminophen 1 Each Tablet, 1 TAB PO Q6H PRN for PAIN-MODERATE Prescribed by: SANTIAGO NOYOLA on 02/10/19 145 Promethazine HCl 25 Mg Tablet, 25 MG PO Q6H PRN for NAUSEA/VOMITING Prescribed by: MANI BARILLAS on 10/19/18 1019 Sulfamethoxazole/Trimethoprim 1 Each Tablet, 1 EACH PO BID Prescribed by: INO PINTO on 05/30/19 1841 Patient Home Medication List Home Medication List Reviewed: Yes Review of Systems Review of Systems Constitutional: no symptoms reported Respiratory: no symptoms reported Gastrointestinal: abdominal pain, nausea; No vomiting Genitourinary: flank pain Musculoskeletal: back pain All Other Systemes Reviewed Negative Unless Noted: Yes Past Rjtddfl-Xsycvx-Rjxems Hx Patient Social History Alcohol Use: Rarely Uses Recreational Drug Use: No Smoking Status: Never a Smoker 2nd Hand Smoke Exposure: No Recent Foreign Travel: No Contact w/Someone Who Travel: No Recent Infectious Disease Expo: No Recent Hopitalizations: No Physical Abuse: No Sexual Abuse: No Mistreated: No Fear: No Immunizations Up To Date Tetanus Booster (TDap): Unknown Seasonal Allergies Seasonal Allergies: No Past Medical History Surgeries: Yes (LITHOTRIPSY) Respiratory: No Cardiac: No Neurological: No Last Menstrual Period: May 27, 2019 Genitourinary: Yes (MEDULARY SPONGE KIDNEY DISEASE) Kidney Stones Gastrointestinal: Yes Diverticulosis, Esophagitis Musculoskeletal: No Endocrine: No HEENT: No Cancer: No Psychosocial: No Integumentary: No Blood Disorders: No Family Medical History No Pertinent Family Hx Physical Exam Vital Signs Vital Signs - First Documented 05/30/19 17:40 Temp 36.8 Pulse 105 Resp 20 B/P (MAP) 112/64 (80) Pulse Ox 97 O2 Delivery Room Air Capillary Refill : Less Than 3 Seconds Height, Weight, BMI Height: 5'8.00" Weight: 260lbs. 0oz. 117.037988vy; 43.00 BMI Method:Stated General Appearance: WD/WN, moderate distress (rocking back and forth in pain), obese HEENT: pharynx normal Neck: supple Cardiovascular: regular rate, rhythm, no edema Respiratory: lungs clear, normal breath sounds Gastrointestinal: non tender, soft Back: normal inspection Extremities: non-tender, normal inspection Neurologic/Psychiatric: alert, normal mood/affect Skin: normal color, warm/dry Progress/Results/Core Measures Suspected Sepsis Recent Fever Within 48 Hours: No Infection Criteria Present: Suspected New Infection New/Unexplained Altered Menta: No Sepsis Screen: No Definite Risk SIRS Temperature: Pulse: 105 Respiratory Rate: 20 Laboratory Tests 05/30/19 18:20: White Blood Count 7.6 Blood Pressure 112 /64 Mean: 80 Laboratory Tests 05/30/19 18:20: Creatinine 0.59L, Platelet Count 240, Total Bilirubin 0.2 Results/Orders Lab Results Laboratory Tests Test 05/30/19 17:45 05/30/19 18:20 Range/Units Urine Color DK YELLOW Urine Clarity CLEAR Urine pH 5.5 5-9 Urine Specific [place] >=1.030 1.016-1.022 Urine Protein NEGATIVE NEGATIVE Urine Glucose (UA) NEGATIVE NEGATIVE Urine Ketones NEGATIVE NEGATIVE Urine Nitrite NEGATIVE NEGATIVE Urine Bilirubin NEGATIVE NEGATIVE Urine Urobilinogen 0.2 NORMAL MG/DL Urine Leukocyte Esterase 1+ H NEGATIVE Urine RBC (Auto) TRACE H NEGATIVE Urine RBC 2-5 H /HPF Urine WBC 10-25 H /HPF Urine Squamous Epithelial Cells 10-25 H /HPF Urine Crystals NONE /LPF Urine Bacteria MODERATE H /HPF Urine Casts NONE /LPF Urine Mucus LARGE H /LPF Urine Culture Indicated YES Urine Test NEGATIVE NEGATIVE White Blood Count 7.6 4.3-11.0 10^3/uL Red Blood Count 4.88 4.35-5.85 10^6/uL Hemoglobin 14.4 11.5-16.0 G/DL Hematocrit 43 35-52 % Mean Corpuscular Volume 87 80-99 FL Mean Corpuscular Hemoglobin 30 25-34 PG Mean Corpuscular Hemoglobin Concent 34 32-36 G/DL Red Cell Distribution Width 12.2 10.0-14.5 % Platelet Count 240 130-400 10^3/uL Mean Platelet Volume 11.2 H 7.4-10.4 FL Neutrophils (%) (Auto) 66 42-75 % Lymphocytes (%) (Auto) 29 12-44 % Monocytes (%) (Auto) 3 0-12 % Eosinophils (%) (Auto) 1 0-10 % Basophils (%) (Auto) 1 0-10 % Neutrophils # (Auto) 5.0 1.8-7.8 X 10^3 Lymphocytes # (Auto) 2.2 1.0-4.0 X 10^3 Monocytes # (Auto) 0.3 0.0-1.0 X 10^3 Eosinophils # (Auto) 0.1 0.0-0.3 10^3/uL Basophils # (Auto) 0.0 0.0-0.1 10^3/uL Sodium Level 140 135-145 MMOL/L Potassium Level 3.6 3.6-5.0 MMOL/L Chloride Level 103 98-107 MMOL/L Carbon Dioxide Level 23 21-32 MMOL/L Anion Gap 14 5-14 MMOL/L Blood Urea Nitrogen 11 7-18 MG/DL Creatinine 0.59 L 0.60-1.30 MG/DL Estimat Glomerular Filtration Rate > 60 BUN/Creatinine Ratio 19 Glucose Level 148 H 70-105 MG/DL Calcium Level 9.5 8.5-10.1 MG/DL Corrected Calcium 9.4 8.5-10.1 MG/DL Total Bilirubin 0.2 0.1-1.0 MG/DL Aspartate Amino Transf (AST/SGOT) 19 5-34 U/L Alanine Aminotransferase (ALT/SGPT) 13 0-55 U/L Alkaline Phosphatase 86 40-136 U/L Total Protein 7.1 6.4-8.2 GM/DL Albumin 4.1 3.2-4.5 GM/DL My Orders Orders - INO PINTO MD Ua Culture If Indicated (05/30/19 18:11) Hcg,Qualitative Urine (05/30/19 18:11) Ketorolac Injection (Toradol Injection) (05/30/19 18:15) Ondansetron Injection (Zofran Injectio (05/30/19 18:15) Ns Iv 1000 Ml (Sodium Chloride 0.9%) (05/30/19 18:15) Cbc With Automated Diff (05/30/19 18:14) Comprehensive Metabolic Panel (05/30/19 18:14) Urine Culture (05/30/19 17:45) Ceftriaxone For Iv Use (Rocephin For I (05/30/19 18:30) Hydrocodone/Apap 5/325 Tablet (Lortab 5 (05/30/19 19:00) Medications Given in ED Current Medications Medications Dose Ordered Sig/Carlos Eduardo Route Start Time Stop Time Status Last Admin Dose Admin Acetaminophen/ Hydrocodone Bitart 2 tab ONCE ONCE PO 05/30/19 19:00 05/30/19 19:01 DC 05/30/19 19:01 2 TAB Ceftriaxone Sodium 1000 mg/ Sterile Water 10 ml @ 200 mls/hr ONCE ONCE IV 05/30/19 18:30 05/30/19 18:32 DC 05/30/19 18:42 200 MLS/HR Ketorolac Tromethamine 30 mg ONCE ONCE IVP 05/30/19 18:15 05/30/19 18:16 DC 05/30/19 18:26 30 MG Ondansetron HCl 4 mg ONCE ONCE IVP 05/30/19 18:15 05/30/19 18:16 DC 05/30/19 18:26 4 MG Vital Signs/I&O 05/30/19 05/30/19 17:40 19:13 Temp 36.8 Pulse 105 86 Resp 20 18 B/P (MAP) 112/64 (80) 126/75 Pulse Ox 97 97 O2 Delivery Room Air Room Air Capillary Refill : Less Than 3 Seconds Blood Pressure Mean: 80 Progress Note : Time: 18:38 Progress Note Feels better after medications and IV fluids. Urinalysis consistent with UTI/pyelonephritis. Rocephin was stung in the emergency department. We'll prescribe Bactrim. Departure Impression Primary Impression: Urinary tract infection Disposition: 01 HOME, SELF-CARE Condition: Stable Departure-Patient Inst. Decision time for Depature: 18:39 Referrals: [facility]/ (PCP) Primary Care Physician JENI BATES APRN (Family) Primary Care Physician Patient Instructions: Urinary Tract Infection, Adult (DC) Scripts Hydrocodone Bit/Acetaminophen (Hydrocodone/Acetaminophen 5/325mg Tablet) 1 Tab Tab 1 EACH PO Q4-6HR PRN for PAIN-MODERATE MDD 10 for 3 Days, #10 TAB Prov: INO PINTO MD 05/30/19 Sulfamethoxazole/Trimethoprim (Bactrim Ds Tablet) 1 Each Tablet 1 EACH PO BID, #14 TAB Prov: INO PINTO MD 05/30/19 INO PINTO MD May 30, 2019 18:22
[2019-05-30 18:24] LABS: BACTERIA,URINE MODERATE /HPF; LEUKOCYTE ESTERASE ,URINE 1+ (NEGATIVE)
[2019-05-30] MEDS ORDERED: cefTRIAXone FOR IV USE 1,000 MG in WATER (STERILE) FOR INJECTION 10 ML IV ONE (18:30)
[2019-05-30 18:31] LABS: HEMOGLOBIN 14.4 G/DL (11.5-16.0); MEAN CORPUSCULAR HEMOGLOBIN 30 PG (25-34); WHITE BLOOD COUNT 7.6 10^3/uL (4.3-11.0)
[2019-05-30 18:32] LABS: BASOPHILS % (AUTO) 1 % (0-10); EOSINOPHILS # (AUTO) 0.1 10^3/uL (0.0-0.3); EOSINOPHILS % (AUTO) 1 % (0-10); HEMATOCRIT 43 % (35-52); LYMPHOCYTES # (AUTO) 2.2 X 10^3 (1.0-4.0); LYMPHOCYTES % (AUTO) 29 % (12-44); MEAN CORPUSCULAR HGB CONC 34 G/DL (32-36); MEAN CORPUSCULAR VOLUME 87 FL (80-99); MEAN PLATELET VOLUME 11.2 FL (7.4-10.4); MONOCYTES # (AUTO) 0.3 X 10^3 (0.0-1.0); MONOCYTES % (AUTO) 3 % (0-12); NEUTROPHILS % (AUTO) 66 % (42-75); PLATELET COUNT 240 10^3/uL (130-400); RED CELL DISTRIBUTION WIDTH 12.2 % (10.0-14.5)
[2019-05-30] MEDS ORDERED: SULF1TAB35 PO (18:41)
[2019-05-30] MEDS ORDERED: ACHD5005 PO (18:41)
[2019-05-30 18:42] LABS: SODIUM 140 MMOL/L (135-145)
[2019-05-30 18:43] LABS: CHLORIDE 103 MMOL/L (98-107); POTASSIUM 3.6 MMOL/L (3.6-5.0)
[2019-05-30 18:49] LABS: CARBON DIOXIDE 23 MMOL/L (21-32)
[2019-05-30 18:50] LABS: BILIRUBIN,TOTAL 0.2 MG/DL (0.1-1.0); BUN/CREATININE RATIO 19; CALCIUM 9.5 MG/DL (8.5-10.1); CREATININE SERUM 0.59 MG/DL (0.60-1.30); GFR ESTIMATED > 60; GLUCOSE 148 MG/DL (70-105)
[2019-05-30 18:51] LABS: ALANINE AMINOTRANSFERASE 13 U/L (0-55); ALBUMIN 4.1 GM/DL (3.2-4.5); ALKALINE PHOSPHATASE 86 U/L (40-136); TOTAL PROTEIN 7.1 GM/DL (6.4-8.2)
[2019-05-30] MEDS ORDERED: HYDROcodone/APAP 5 MG/325 MG (LORTAB) TAB PO ONE (19:00)
[2019-05-30 19:13] VITALS: BP 126/75
== END 2019-05-30 19:13 | disposition home or self-care (01) ==
LOC: EDUNIT# 17:28 → ER FS 17:30
DX: N39.0 Urinary tract infection, site not specified (principal); Z88.0 Allergy status to penicillin; Z87.442 Personal history of urinary calculi; Z87.19 Personal history of other diseases of the digestive system
CPT/HCPCS: 36415; 80053; 81000; 84703; 85025; 87088; 96361; 96374; 96375

== ENCOUNTER 2019-06-02 16:52 | Emergency (ER) | payer SELFPAY ==
[~2019-06-02] VITALS: Ht 172.7 cm; Wt 125.0 kg
[~2019-06-02 16:52] MED LIST changes: +ACHD5005 PO; +SULF1TAB35 PO
[2019-06-02] MEDS ORDERED: KETOROLAC 30 MG/ML VIAL IVP ONE (17:15)
[2019-06-02] MEDS ORDERED: NS IV 1000 ML 1,000 ML IV SCH (17:15)
[2019-06-02] MEDS ORDERED: morphine INJ 10 MG/ML 1ML (SYR OR VIAL) IVP STA (17:16)
--- NOTE | 2019-06-02 17:21 | ED GU-Female ---
General Chief Complaint: - Urinary Stated Complaint: KIDNEY PAIN Source: patient Exam Limitations: no limitations (LEXIS KAUR DO) History of Present Illness Date Seen by Provider: Jun 02, 2019 Time Seen by Provider: 17:10 Initial Comments The patient is a pleasant 28-year-old female who presents for evaluation of left flank pain. She appears extremely uncomfortable upon arrival. She was recently diagnosed with UTI and was sent home with Bactrim. She reports a history of kidney stones and has had lithotripsy and stents placed in the past. She states the burning with urination she was having has gone away after the Bactrim. Her culture grew out lactobacillus which is likely a contaminant. She denies hematuria, chest pain or shortness of breath, fevers, vomiting, diarrhea, rectal bleeding, pelvic pain/bleeding/discharge, or abdominal pain. She has had some chills and is concerned about the possibility of a kidney infection. She is alert and oriented 4, appears uncomfortable, but is in no distress at this time. Timing/Duration: yesterday Severity/Quality: severe Location: left flank Radiation: none Activities at Onset: none Prior Genitourinary Problems: similar symptoms (with kidney stones) Associated Symptoms: fever/chills (chills), nausea/vomiting (nausea) (LEXIS KAUR DO) Allergies and Home Medications Allergies Coded Allergies: Penicillins (Unverified Allergy, Unknown, 02/25/17) Home Medications Acetaminophen 500 Mg Tablet, 1,000 MG PO TID Prescribed by: MANI BARILLAS on 10/19/18 1019 Cyclobenzaprine HCl 10 Mg Tablet, 10 MG PO TID Prescribed by: SANTIAGO NOYOLA on 02/10/19 1457 Fluoxetine HCl 40 Mg Capsule, 40 MG PO DAILY, (Reported) Hydrocodone Bit/Acetaminophen 1 Tab Tab, 1 EACH PO Q4-6HR PRN for PAIN-MODERATE Prescribed by: INO PINTO on 05/30/19 184 Hydrocodone/Acetaminophen 1 Each Tablet, 0.5-1 TAB PO Q4H PRN for PAIN-SEVERE Prescribed by: RENU SALMON on 06/02/191910 Ibuprofen 600 Mg Tablet, 600 MG PO Q6H Prescribed by: MANI BARILLAS on 10/19/18 1019 Metronidazole 500 Mg Tablet, 500 MG PO BID Prescribed by: RENU SALMON on 06/02/191910 Norgestimate-Ethinyl Estradiol 1 Each Tablet, 1 EACH PO DAILY, (Reported) Omeprazole 20 Mg Capsule.dr, 20 MG PO DAILY, (Reported) Ondansetron 8 Mg Tab.rapdis, 8 MG PO Q6H PRN for NAUSEA/VOMITING-1ST LINE Prescribed by: HANY VELASQUEZ on 02/25/172038 Oxycodone HCl 5 Mg Tablet, 5 MG PO Q6H PRN for pain Prescribed by: MANI BARILLAS on 10/19/18 1019 Oxycodone HCl/Acetaminophen 1 Each Tablet, 1 TAB PO Q6H PRN for PAIN-MODERATE Prescribed by: SANTIAGO NOYOLA on 02/10/19 145 Promethazine HCl 25 Mg Tablet, 25 MG PO Q6H PRN for NAUSEA/VOMITING Prescribed by: MANI BARILLAS on 10/19/18 1019 Sulfamethoxazole/Trimethoprim 1 Each Tablet, 1 EACH PO BID Prescribed by: INO PINTO on 05/30/19 184 Patient Home Medication List Home Medication List Reviewed: Yes (LEXIS KAUR DO) Review of Systems Review of Systems Constitutional: chills EENTM: no symptoms reported Respiratory: no symptoms reported Cardiovascular: no symptoms reported Gastrointestinal: no symptoms reported Genitourinary: flank pain (left) Musculoskeletal: no symptoms reported Skin: no symptoms reported Psychiatric/Neurological: No Symptoms Reported Endocrine: No Symptoms Reported Hematologic/Lymphatic: No Symptoms Reported (LEXIS KAUR DO) All Other Systemes Reviewed Negative Unless Noted: Yes (LEXIS KAUR DO) Past Alxsahp-Czwhfv-Aymdfp Hx Patient Social History 2nd Hand Smoke Exposure: No Recent Foreign Travel: No Contact w/Someone Who Travel: No Recent Hopitalizations: No (LEXIS KAUR DO) Immunizations Up To Date Tetanus Booster (TDap): Unknown (LEXIS KAUR DO) Seasonal Allergies Seasonal Allergies: No (LEXIS KAUR DO) Past Medical History Surgeries: Yes (LITHOTRIPSY) Respiratory: No Cardiac: No Neurological: No Genitourinary: Yes (MEDULARY SPONGE KIDNEY DISEASE) Kidney Stones Gastrointestinal: Yes Diverticulosis, Esophagitis Musculoskeletal: No Endocrine: No HEENT: No Cancer: No Psychosocial: No Integumentary: No Blood Disorders: No (LEXIS KAUR DO) Family Medical History No Pertinent Family Hx (LEXIS KAUR DO) Physical Exam Vital Signs Vital Signs - First Documented 06/02/19 16:55 Temp 36.5 Pulse 99 Resp 20 B/P (MAP) 157/91 (113) Pulse Ox 98 O2 Delivery Room Air (RENU SALMON MD) Vital Signs Capillary Refill : (VINCENTLEXIS Rhonda ROWE) Height, Weight, BMI Height: 5'8.00" Weight: 260lbs. 0oz. 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, no motor/sensory deficits, alert, normal mood/affect, oriented x 3 Skin: normal color, warm/dry (VINCENTLEXIS Rhonda ROWE) Progress/Results/Core Measures Suspected Sepsis SIRS Temperature: Pulse: Respiratory Rate: Laboratory Tests 06/02/19 17:10: Blood Pressure / Mean: Laboratory Tests 06/02/19 17:10: (VINCENTLEXIS Rhonda ROWE) Results/Orders Lab Results Laboratory Tests Test 06/02/19 17:10 06/02/19 17:13 Range/Units White Blood Count 8.1 4.3-11.0 10^3/uL Red Blood Count 5.05 4.35-5.85 10^6/uL Hemoglobin 14.7 11.5-16.0 G/DL Hematocrit 44 35-52 % Mean Corpuscular Volume 86 80-99 FL Mean Corpuscular Hemoglobin 29 25-34 PG Mean Corpuscular Hemoglobin Concent 34 32-36 G/DL Red Cell Distribution Width 12.2 10.0-14.5 % Platelet Count 252 130-400 10^3/uL Mean Platelet Volume 11.2 H 7.4-10.4 FL Neutrophils (%) (Auto) 54 42-75 % Lymphocytes (%) (Auto) 36 12-44 % Monocytes (%) (Auto) 7 0-12 % Eosinophils (%) (Auto) 2 0-10 % Basophils (%) (Auto) 1 0-10 % Neutrophils # (Auto) 4.3 1.8-7.8 X 10^3 Lymphocytes # (Auto) 2.9 1.0-4.0 X 10^3 Monocytes # (Auto) 0.6 0.0-1.0 X 10^3 Eosinophils # (Auto) 0.2 0.0-0.3 10^3/uL Basophils # (Auto) 0.1 0.0-0.1 10^3/uL Sodium Level 138 135-145 MMOL/L Potassium Level 4.2 3.6-5.0 MMOL/L Chloride Level 103 98-107 MMOL/L Carbon Dioxide Level 21 21-32 MMOL/L Anion Gap 14 5-14 MMOL/L Blood Urea Nitrogen 9 7-18 MG/DL Creatinine 0.81 0.60-1.30 MG/DL Estimat Glomerular Filtration Rate > 60 BUN/Creatinine Ratio 11 Glucose Level 100 70-105 MG/DL Calcium Level 9.6 8.5-10.1 MG/DL Corrected Calcium 9.4 8.5-10.1 MG/DL Magnesium Level 2.1 1.6-2.4 MG/DL Total Bilirubin 0.2 0.1-1.0 MG/DL Aspartate Amino Transf (AST/SGOT) 22 5-34 U/L Alanine Aminotransferase (ALT/SGPT) 10 0-55 U/L Alkaline Phosphatase 87 40-136 U/L Total Protein 7.5 6.4-8.2 GM/DL Albumin 4.2 3.2-4.5 GM/DL Lipase 31 8-78 U/L Urine Color DARK YELLOW Urine Clarity SL CLOUDY Urine pH 6.0 5-9 Urine Specific [place] >=1.030 1.016-1.022 Urine Protein NEGATIVE NEGATIVE Urine Glucose (UA) NEGATIVE NEGATIVE Urine Ketones NEGATIVE NEGATIVE Urine Nitrite NEGATIVE NEGATIVE Urine Bilirubin NEGATIVE NEGATIVE Urine Urobilinogen 0.2 NORMAL MG/DL Urine Leukocyte Esterase 1+ H NEGATIVE Urine RBC (Auto) NEGATIVE NEGATIVE Urine RBC NONE /HPF Urine WBC 2-5 /HPF Urine Squamous Epithelial Cells 5-10 /HPF Urine Crystals NONE /LPF Urine Bacteria FEW H /HPF Urine Casts NONE /LPF Urine Mucus NEGATIVE /LPF Urine Culture Indicated YES Urine Test NEGATIVE NEGATIVE (RENU SALMON MD) My Orders Orders - RENU SALMON MD Hydromorphone Injection (Dilaudid Inject (06/02/19 18:29) Ondansetron Injection (Zofran Injectio (06/02/19 18:31) (RENU SALMON MD) Medications Given in ED Current Medications Medications Dose Ordered Sig/Carlos Eduardo Route Start Time Stop Time Status Last Admin Dose Admin Ketorolac Tromethamine 30 mg ONCE ONCE IVP 06/02/19 17:15 06/02/19 17:16 DC 06/02/19 17:40 30 MG Ondansetron HCl 4 mg ONCE ONCE IVP 06/02/19 17:30 06/02/19 17:31 DC 06/02/19 17:40 4 MG (RENU SALMON MD) Vital Signs/I&O 06/02/19 06/02/19 16:55 19:13 Temp 36.5 36.3 Pulse 99 80 Resp 20 20 B/P (MAP) 157/91 (113) 140/69 (113) Pulse Ox 98 98 O2 Delivery Room Air Room Air (RENU SALMON MD) Vital Signs/I&O Capillary Refill : (LEXIS KAUR DO) Progress Note : Progress Note @1800 - Pt care handed over to Dr. Salmon at this time. Pending lab and imaging results. (LEXIS KAUR DO) Progress Note #1: Time: 18:00 Progress Note I assumed care for the patient from Dr. Kaur at shift change. awaiting CT report from her CT abdomen/pelvis. Her labs did not show any acute significant abnormality on CBC or Chemistry. her UA shows 1+ LE and bacteria and will be cultured. Last culture showed Lactobacillus. Progress Note #2: Time: 18:[address] report shows no acute abnormality to account for her flank pain. No stones or signs of obstruction. Progress Note #3: Progress Note Reviewed results with patient. She was having increasing pain again so a dose of Dilaudid was given and repeat Zofran for nausea. Counseled that no stone or obstruction was seen. Will discharge on Flagyl for la ctobacillus seen on culture from recent ED visit and have her finish Bactrim DS. Give Hydrocodone 10/325 since she was having to take 2 of the 5 mg pills from recent ED visit. Encouraged to check with Dr. Maravilla or Urology for continued pain/problems, Push fluids since urine was concentrated. (RENU SALMON MD) Diagnostic Imaging Diagonstic Imaging: CT Plain Films/CT/US/NM/MRI: abdomen, pelvis Comments NAME: GLORIA CORNELL [facility] REC#: [id number] PT STATUS: REG ER : 1990 PHYSICIAN: LEXIS KAUR DO ADMIT DATE: 06/02/19/ER FS Draft POSDate of Exam:06/02/19 CT ABDOMEN/PELVIS WO PROCEDURE: CT abdomen and pelvis without contrast. TECHNIQUE: Multiple contiguous axial images were obtained through the abdomen and pelvis without the use of intravenous contrast. Auto Exposure Controls were utilized during the CT exam to meet ALARA standards for radiation dose reduction. INDICATION: Left flank pain. EXAMINATION: Unenhanced images of the liver, gallbladder, pancreas, adrenal glands and spleen are unremarkable. There is no evidence of renal calculus or hydronephrosis. There is no evidence of ureteric stone or dilatation. No free fluid is seen in the abdomen or pelvis. The appendix has a normal appearance. There is no bladder calcification. IMPRESSION: No acute abnormality. Dictated on workstation # [id number] Dict: 06/02/19 1800 Trans: 06/02/19 1804 [facility] [id number] Interpreted by: JELANI ROA MD Electronically signed by: (RENU SALMON MD) Departure Impression Primary Impression: Cystitis without hematuria Additional Impression: Left flank pain Disposition: 01 HOME, SELF-CARE Condition: Stable Departure-Patient Inst. Decision time for Depature: 19:08 (RENU SALMON MD) Referrals: [facility] (PCP) Primary Care Physician JENI BATES APRN (Family) Primary Care Physician GEMINI MARAVILLA MD Patient Instructions: Urinary Tract Infection, Adult (DC), Flank Pain (DC) Add. Discharge Instructions: Finish your Bactrim and take the Flagyl (Metronidazole) antibiotic as well. Use the Hydrocodone for severe pain. Drink more water and stay well hydrated Check back with Dr. Maravilla or Urology for continued pain and more problems All discharge instructions reviewed with patient and/or family. Voiced understanding. Scripts Hydrocodone/Acetaminophen (Hydrocodon-Acetaminophn 10-325) 1 Each Tablet 0.5-1 TAB PO Q4H PRN for PAIN-SEVERE for 3 Days, #20 TAB 0 Refills Prov: RENU SALMON MD 06/02/19 Metronidazole (Metronidazole) 500 Mg Tablet 500 MG PO BID for 7 Days, #14 TAB 0 Refills Prov: RENU SALMON MD 06/02/19 LEXIS KAUR DO Jun 02, 2019 17:21 RENU DE LA O MD Jun 02, 2019 18:16 POS
[2019-06-02] MEDS ORDERED: ONDANSETRON 4 MG/2 ML (SDV) Z0FRAN IVP ONE (17:30)
[2019-06-02 17:48] LABS: CARBON DIOXIDE 21 MMOL/L (21-32); CHLORIDE 103 MMOL/L (98-107); POTASSIUM 4.2 MMOL/L (3.6-5.0); SODIUM 138 MMOL/L (135-145)
[2019-06-02 17:49] LABS: ALANINE AMINOTRANSFERASE 10 U/L (0-55); ALBUMIN 4.2 GM/DL (3.2-4.5); ALKALINE PHOSPHATASE 87 U/L (40-136); BILIRUBIN,TOTAL 0.2 MG/DL (0.1-1.0); BUN/CREATININE RATIO 11; CALCIUM 9.6 MG/DL (8.5-10.1); CREATININE SERUM 0.81 MG/DL (0.60-1.30); GFR ESTIMATED > 60; GLUCOSE 100 MG/DL (70-105); LIPASE 31 U/L (8-78); MAGNESIUM 2.1 MG/DL (1.6-2.4); TOTAL PROTEIN 7.5 GM/DL (6.4-8.2)
[2019-06-02 17:51] LABS: BACTERIA,URINE FEW /HPF; BILIRUBIN,URINE NEGATIVE (NEGATIVE); CLARITY,URINE SL CLOUDY; COLOR,URINE DARK YELLOW; GLUCOSE, URINE (UA) NEGATIVE (NEGATIVE); KETONES,URINE NEGATIVE (NEGATIVE); LEUKOCYTE ESTERASE ,URINE 1+ (NEGATIVE); NITRITE,URINE NEGATIVE (NEGATIVE); PROTEIN,URINE NEGATIVE (NEGATIVE)
[2019-06-02 17:54] LABS: HEMATOCRIT 44 % (35-52); HEMOGLOBIN 14.7 G/DL (11.5-16.0); MEAN CORPUSCULAR HEMOGLOBIN 29 PG (25-34); MEAN CORPUSCULAR HGB CONC 34 G/DL (32-36); MEAN CORPUSCULAR VOLUME 86 FL (80-99); WHITE BLOOD COUNT 8.1 10^3/uL (4.3-11.0)
[2019-06-02 17:55] LABS: BASOPHILS # (AUTO) 0.1 10^3/uL (0.0-0.1); BASOPHILS % (AUTO) 1 % (0-10); EOSINOPHILS # (AUTO) 0.2 10^3/uL (0.0-0.3); EOSINOPHILS % (AUTO) 2 % (0-10); LYMPHOCYTES # (AUTO) 2.9 X 10^3 (1.0-4.0); LYMPHOCYTES % (AUTO) 36 % (12-44); MEAN PLATELET VOLUME 11.2 FL (7.4-10.4); MONOCYTES # (AUTO) 0.6 X 10^3 (0.0-1.0); MONOCYTES % (AUTO) 7 % (0-12); NEUTROPHILS # (AUTO) 4.3 X 10^3 (1.8-7.8); NEUTROPHILS % (AUTO) 54 % (42-75); PLATELET COUNT 252 10^3/uL (130-400); RED CELL DISTRIBUTION WIDTH 12.2 % (10.0-14.5)
--- NOTE | 2019-06-02 18:05 | Diagnostic Imaging Report ---
PROCEDURE: CT abdomen and pelvis without contrast. TECHNIQUE: Multiple contiguous axial images were obtained through the abdomen and pelvis without the use of intravenous contrast. Auto Exposure Controls were utilized during the CT exam to meet ALARA standards for radiation dose reduction. INDICATION: Left flank pain. EXAMINATION: Unenhanced images of the liver, gallbladder, pancreas, adrenal glands and spleen are unremarkable. There is no evidence of renal calculus or hydronephrosis. There is no evidence of ureteric stone or dilatation. No free fluid is seen in the abdomen or pelvis. The appendix has a normal appearance. There is no bladder calcification. IMPRESSION: No acute abnormality. Dictated by: Dictated on workstation # [id number]
[2019-06-02] MEDS ORDERED: HYDROmorphone 2 MG/ML VIAL (DILAUDID) IV STA (18:29)
[2019-06-02] MEDS ORDERED: ONDANSETRON 4 MG/2 ML (SDV) Z0FRAN IVP STA (18:31)
[2019-06-02] MEDS ORDERED: METR-145 PO (19:11)
[2019-06-02] MEDS ORDERED: HYDR-3820 PO (19:11)
[2019-06-02 19:13] VITALS: BP 140/69
== END 2019-06-02 19:21 | disposition home or self-care (01) ==
LOC: EDUNIT# 16:52 → ER FS 16:53
DX: N30.90 Cystitis, unspecified without hematuria (principal); Z87.442 Personal history of urinary calculi; Z88.0 Allergy status to penicillin; Z87.19 Personal history of other diseases of the digestive system
CPT/HCPCS: 36415; 74176; 80053; 81000; 83690; 83735; 84703; 85025; 87088; 96361; 96374; 96375; 96376

== ENCOUNTER 2019-08-15 22:54 | Emergency (ER) | payer SELFPAY ==
[~2019-08-15] VITALS: Ht 172.7 cm; Wt 124.8 kg
[~2019-08-15 22:54] MED LIST changes: +HYDR-3820 PO; +METR-145 PO; +OMEP-280 PO; -OMEP20CA13 PO
--- NOTE | 2019-08-15 23:22 | ED Abdominal Pain ---
General Chief Complaint: Back Problems Stated Complaint: RIDE SIDE LOWER ABDOMINAL PAIN Source of Information: Patient Exam Limitations: No Limitations History of Present Illness Date Seen by Provider: Aug 15, 2019 Time Seen by Provider: 23:15 Initial Comments Sudden onset lower abdominal pain just prior to arrival. Patient describes a severe and began on her left lower abdomen then moved to her right lower abdomen and in the center. Described a history of ovarian cyst as well as kidney stones. States she has kidney disease and always has pain in her left kidney which is no worse on arrival. Denies any vomiting or diarrhea. Denies any fever chills or recent illness. Denies any pain with urination. Last menstrual period was one week ago and was normal and a normal interval and patient denies risk or chance of . Allergies and Home Medications Allergies Coded Allergies: Penicillins (Unverified Allergy, Unknown, 02/25/17) Home Medications Acetaminophen 500 Mg Tablet, 1,000 MG PO TID Prescribed by: MANI BARILLAS on 10/19/18 1019 Cyclobenzaprine HCl 10 Mg Tablet, 10 MG PO TID Prescribed by: SANTIAGO NOYOLA on 02/10/19 145 Fluoxetine HCl 40 Mg Capsule, 40 MG PO DAILY, (Reported) Hydrocodone Bit/Acetaminophen 1 Tab Tab, 1 EACH PO Q4-6HR PRN for PAIN-MODERATE Prescribed by: INO PINTO on 05/30/191840 Hydrocodone/Acetaminophen 1 Each Tablet, 0.5-1 TAB PO Q4H PRN for PAIN-SEVERE Prescribed by: RENU SALMON on 06/02/191910 Hydrocodone/Acetaminophen 1 Each Tablet, 1-2 TAB PO Q6H Prescribed by: EMILY BLAKELY on 08/16/1931 Ibuprofen 600 Mg Tablet, 600 MG PO Q6H Prescribed by: MANI BARILLAS on 10/19/18 101 Ibuprofen 800 Mg Tablet, 800 MG PO Q8H PRN for PAIN-MILD Prescribed by: EMILY BLAKELY on 08/16/1931 Metronidazole 500 Mg Tablet, 500 MG PO BID Prescribed by: RENU SALMON on 06/02/191910 Norgestimate-Ethinyl Estradiol 1 Each Tablet, 1 EACH PO DAILY, (Reported) Omeprazole 20 Mg Capsule.dr, 20 MG PO DAILY, (Reported) Ondansetron 8 Mg Tab.rapdis, 8 MG PO Q6H PRN for NAUSEA/VOMITING-1ST LINE Prescribed by: HANY VELASQUEZ on 02/25/172038 Oxycodone HCl 5 Mg Tablet, 5 MG PO Q6H PRN for pain Prescribed by: MANI BARILLAS on 10/19/18 1019 Oxycodone HCl/Acetaminophen 1 Each Tablet, 1 TAB PO Q6H PRN for PAIN-MODERATE Prescribed by: SANTIAGO NOYOLA on 02/10/19 1457 Promethazine HCl 25 Mg Tablet, 25 MG PO Q6H PRN for NAUSEA/VOMITING Prescribed by: MANI BARILLAS on 10/19/18 1019 Sulfamethoxazole/Trimethoprim 1 Each Tablet, 1 EACH PO BID Prescribed by: INO PINTO on 05/30/19 184 Patient Home Medication List Home Medication List Reviewed: Yes Review of Systems Review of Systems Constitutional: see HPI; No fever, No weight loss Respiratory: No Symptoms Reported; Denies Cough, Denies Shortness of Air Cardiovascular: Denies Chest Pain, Denies Edema, Denies Irregular Heart Rate Gastrointestinal: See HPI; Denies Abdomen Distended; Abdominal Pain; Denies Constipated, Denies Diarrhea, Denies Nausea, Denies Poor Appetite, Denies Poor Fluid Intake, Denies Vomiting Genitourinary: See HPI; Denies Burning, Denies Discharge, Denies Flank Pain, Denies Hematuria, Denies Pain, Denies Urgency Musculoskeletal: No back pain, No joint pain Skin: No change in color, No change in hair/nails Past Bjkegea-Rjfdpf-Azszys Hx Past Med/Social Hx: Reviewed Nursing Past Med/Soc Hx Patient Social History Alcohol Use: Denies Use Recreational Drug Use: No 2nd Hand Smoke Exposure: No Recent Foreign Travel: No Contact w/Someone Who Travel: No Recent Hopitalizations: No Physical Abuse: No Sexual Abuse: No Mistreated: No Fear: No Immunizations Up To Date Tetanus Booster (TDap): Unknown Seasonal Allergies Seasonal Allergies: No Past Medical History Surgeries: Yes (LITHOTRIPSY) Respiratory: No Cardiac: No Neurological: No Genitourinary: Yes (MEDULARY SPONGE KIDNEY DISEASE) Kidney Stones Gastrointestinal: Yes Diverticulosis, Esophagitis Musculoskeletal: No Endocrine: No HEENT: No Cancer: No Psychosocial: No Integumentary: No Blood Disorders: No Family Medical History No Pertinent Family Hx Physical Exam Vital Signs Vital Signs - First Documented 08/15/19 23:14 Temp 36.6 Pulse 95 Resp 22 B/P (MAP) 147/102 (117) Pulse Ox 97 O2 Delivery Room Air Capillary Refill : Height/Weight/BMI Height: 5'8.00" Weight: 260lbs. 0oz. [id number]; 41.00 BMI Method:Stated General Appearance: WD/WN, no apparent distress Respiratory: chest non-tender, lungs clear Cardiovascular: regular rate, rhythm, no edema Gastrointestinal: normal bowel sounds, soft, tenderness (diffuse lower abdomen, non-localized. No r/r/g) Neurologic/Psychiatric: alert, normal mood/affect Progress/Results/Core Measures Results/Orders Lab Results Laboratory Tests Test 08/15/19 23:10 08/15/19 23:30 Range/Units Urine Color YELLOW Urine Clarity CLEAR Urine pH 7.0 5-9 Urine Specific [place] 1.020 1.016-1.022 Urine Protein NEGATIVE NEGATIVE Urine Glucose (UA) NEGATIVE NEGATIVE Urine Ketones NEGATIVE NEGATIVE Urine Nitrite NEGATIVE NEGATIVE Urine Bilirubin NEGATIVE NEGATIVE Urine Urobilinogen 0.2 < = 1.0 MG/DL Urine Leukocyte Esterase 1+ H NEGATIVE Urine RBC (Auto) NEGATIVE NEGATIVE Urine RBC NONE /HPF Urine WBC 25-50 H /HPF Urine Squamous Epithelial Cells TNTC H /HPF Urine Crystals NONE /LPF Urine Bacteria LARGE H /HPF Urine Casts NONE /LPF Urine Mucus LARGE H /LPF Urine Culture Indicated YES Urine Test NEGATIVE NEGATIVE White Blood Count 9.4 4.3-11.0 10^3/uL Red Blood Count 4.89 4.35-5.85 10^6/uL Hemoglobin 14.2 11.5-16.0 G/DL Hematocrit 43 35-52 % Mean Corpuscular Volume 87 80-99 FL Mean Corpuscular Hemoglobin 29 25-34 PG Mean Corpuscular Hemoglobin Concent 33 32-36 G/DL Red Cell Distribution Width 11.9 10.0-14.5 % Platelet Count 260 130-400 10^3/uL Mean Platelet Volume 11.2 H 7.4-10.4 FL Neutrophils (%) (Auto) 49 42-75 % Lymphocytes (%) (Auto) 43 12-44 % Monocytes (%) (Auto) 5 0-12 % Eosinophils (%) (Auto) 2 0-10 % Basophils (%) (Auto) 1 0-10 % Neutrophils # (Auto) 4.6 1.8-7.8 X 10^3 Lymphocytes # (Auto) 4.1 H 1.0-4.0 X 10^3 Monocytes # (Auto) 0.5 0.0-1.0 X 10^3 Eosinophils # (Auto) 0.2 0.0-0.3 10^3/uL Basophils # (Auto) 0.1 0.0-0.1 10^3/uL Sodium Level 138 135-145 MMOL/L Potassium Level 4.0 3.6-5.0 MMOL/L Chloride Level 103 98-107 MMOL/L Carbon Dioxide Level 19 L 21-32 MMOL/L Anion Gap 16 H 5-14 MMOL/L Blood Urea Nitrogen 10 7-18 MG/DL Creatinine 0.64 0.60-1.30 MG/DL Estimat Glomerular Filtration Rate > 60 BUN/Creatinine Ratio 16 Glucose Level 102 70-105 MG/DL Calcium Level 9.5 8.5-10.1 MG/DL Corrected Calcium 9.5 8.5-10.1 MG/DL Total Bilirubin < 0.2 0.1-1.0 MG/DL Aspartate Amino Transf (AST/SGOT) 11 5-34 U/L Alanine Aminotransferase (ALT/SGPT) 8 0-55 U/L Alkaline Phosphatase 88 40-136 U/L Total Protein 7.3 6.4-8.2 GM/DL Albumin 4.0 3.2-4.5 GM/DL My Orders Orders - ROVENSTINE,EMILY L DO Ua Culture If Indicated (08/15/19 23:01) Hcg,Qualitative Urine (08/15/19 23:01) Abdomen Flat & Upright/Decub (08/15/19 23:17) Cbc With Automated Diff (08/15/19 23:17) Comprehensive Metabolic Panel (08/15/19 23:17) Ed Iv/Invasive Line Start (08/15/19 23:17) Ketorolac Injection (Toradol Injection) (08/15/19 23:30) Urine Culture (08/15/19 23:10) Hydrocodone/Apap 10/325 Tablet (Lortab 1 (08/16/19 00:30) Medications Given in ED Current Medications Medications Dose Ordered Sig/Carlos Eduardo Route Start Time Stop Time Status Last Admin Dose Admin Acetaminophen/ Hydrocodone Bitart 1 ea ONCE ONCE PO 08/16/19 00:30 08/16/19 00:31 DC 08/16/19 00:34 1 EA Ketorolac Tromethamine 30 mg ONCE ONCE IVP 08/15/19 23:30 08/16/19 00:36 DC 08/15/19 23:38 30 MG Vital Signs/I&O 08/15/19 08/16/19 23:14 00:42 Temp 36.6 Pulse 95 88 Resp 22 18 B/P (MAP) 147/102 (117) 134/88 Pulse Ox 97 97 O2 Delivery Room Air Room Air Departure Impression Primary Impression: Pelvic pain Disposition: HOME, SELF-CARE Condition: Improved Departure-Patient Inst. Referrals: [facility] (PCP) Primary Care Physician JENI BATES APRN (Family) Primary Care Physician Patient Instructions: Acute Pelvic Pain (DC) Scripts Ibuprofen (Ibuprofen) 800 Mg Tablet 800 MG PO Q8H PRN for PAIN-MILD, #30 TAB Prov: EMILY BLAKELY DO 08/16/19 Hydrocodone/Acetaminophen (Hydrocodone-Acetamin 5-325 mg) 1 Each Tablet 1-2 TAB PO Q6H for PAIN-MODERATE, #10 TAB Prov: EMILY BLAKELY DO 08/16/19 EMILY BLAKELY DO Aug 15, 2019 23:22
[2019-08-15 23:27] LABS: BILIRUBIN,URINE NEGATIVE (NEGATIVE); CLARITY,URINE CLEAR; COLOR,URINE YELLOW; GLUCOSE, URINE (UA) NEGATIVE (NEGATIVE); KETONES,URINE NEGATIVE (NEGATIVE); LEUKOCYTE ESTERASE ,URINE 1+ (NEGATIVE); NITRITE,URINE NEGATIVE (NEGATIVE); PROTEIN,URINE NEGATIVE (NEGATIVE)
[2019-08-15] MEDS ORDERED: KETOROLAC 30 MG/ML VIAL IVP ONE (23:30)
[2019-08-15 23:31] LABS: BACTERIA,URINE LARGE /HPF; SQUAMOUS EPITHELIAL CELL,UR TNTC /HPF; WBC,URINE 25-50 /HPF
[2019-08-15 23:38] LABS: BASOPHILS # (AUTO) 0.1 10^3/uL (0.0-0.1); BASOPHILS % (AUTO) 1 % (0-10); EOSINOPHILS # (AUTO) 0.2 10^3/uL (0.0-0.3); EOSINOPHILS % (AUTO) 2 % (0-10); HEMATOCRIT 43 % (35-52); HEMOGLOBIN 14.2 G/DL (11.5-16.0); LYMPHOCYTES # (AUTO) 4.1 X 10^3 (1.0-4.0); LYMPHOCYTES % (AUTO) 43 % (12-44); MEAN CORPUSCULAR HEMOGLOBIN 29 PG (25-34); MEAN CORPUSCULAR HGB CONC 33 G/DL (32-36); MEAN CORPUSCULAR VOLUME 87 FL (80-99); MEAN PLATELET VOLUME 11.2 FL (7.4-10.4); MONOCYTES # (AUTO) 0.5 X 10^3 (0.0-1.0); MONOCYTES % (AUTO) 5 % (0-12); NEUTROPHILS # (AUTO) 4.6 X 10^3 (1.8-7.8); NEUTROPHILS % (AUTO) 49 % (42-75); PLATELET COUNT 260 10^3/uL (130-400); RED CELL DISTRIBUTION WIDTH 11.9 % (10.0-14.5); WHITE BLOOD COUNT 9.4 10^3/uL (4.3-11.0)
[2019-08-15 23:52] LABS: ALANINE AMINOTRANSFERASE 8 U/L (0-55); ALKALINE PHOSPHATASE 88 U/L (40-136); BILIRUBIN,TOTAL < 0.2 MG/DL (0.1-1.0); BUN/CREATININE RATIO 16; CALCIUM 9.5 MG/DL (8.5-10.1); CARBON DIOXIDE 19 MMOL/L (21-32); CHLORIDE 103 MMOL/L (98-107); CREATININE SERUM 0.64 MG/DL (0.60-1.30); GFR ESTIMATED > 60; GLUCOSE 102 MG/DL (70-105); SODIUM 138 MMOL/L (135-145); TOTAL PROTEIN 7.3 GM/DL (6.4-8.2)
[2019-08-16] MEDS ORDERED: HYDROcodone/APAP 10 MG/325 MG (LORTAB) TAB PO ONE (00:30)
[2019-08-16] MEDS ORDERED: IBUP-1780 PO (00:32)
[2019-08-16] MEDS ORDERED: HYDR-3812 PO (00:32)
[2019-08-16 00:42] VITALS: BP 134/88
--- NOTE | 2019-08-16 07:11 | Diagnostic Imaging Report ---
REASON FOR EXAM: Bilateral abdominal pain. COMPARISON: CT abdomen and pelvis on 06/02/2019. TECHNIQUE: 3 views of the abdomen FINDINGS: The bowel gas pattern is nondistended. No large collection of free intraperitoneal air is seen. Scattered small to moderate amounts of gas and fecal material are present in the colon. No abnormal extraosseous calcifications are present. Phleboliths are noted in the pelvis. The osseous structures are age-appropriate. IMPRESSION: No evidence of bowel obstruction or large collection of free intraperitoneal air. Dictated by: Dictated on workstation # [id number]
== END 2019-08-16 00:42 | disposition home or self-care (01) ==
LOC: EDUNIT# 22:54 → ER FS 22:57
DX: R10.2 Pelvic and perineal pain (principal); Z88.0 Allergy status to penicillin; Z87.442 Personal history of urinary calculi; Z87.19 Personal history of other diseases of the digestive system
CPT/HCPCS: 36415; 74019; 80053; 81000; 84703; 85025; 87088; 96374

== ENCOUNTER 2019-10-14 21:27 | Emergency (ER) | payer MEDICAID, OTHER ==
[~2019-10-14] VITALS: Ht 172 cm; Wt 124.0 kg
[~2019-10-14 21:27] MED LIST changes: +ACHYD1T PO; -HYDR-3062 PO; -HYDR-3820 PO; +IBUP-1780 PO; -OMEP-280 PO; +OMEP20CA18 PO
--- NOTE | 2019-10-14 21:41 | ED Cough/URI ---
General Chief Complaint: Cough/Cold/Flu Symptoms Stated Complaint: CHEST CONGESTION,COUGH,FEVER Source: patient Exam Limitations: no limitations History of Present Illness Date Seen by Provider: Oct 14, 2019 Time Seen by Provider: 21:41 Initial Comments Patient presents with cough, nasal congestion and postnasal drainage for the past 3 days. Saw her primary care doctor initially and was started on antibiotic for an ear infection, then called her WOOD GRINDER OPERATOR called [facility] for her symptoms. Presents tonight because she is not getting any better. History of asthma but denies any wheezing. Denies chest pain or pressure. Denies abdominal pain or vomiting. Positive sick contacts, her son sick recently with upper respiratory symptoms as well. Allergies and Home Medications Allergies Coded Allergies: Penicillins (Unverified Allergy, Unknown, 02/25/17) Home Medications Acetaminophen 500 Mg Tablet, 1,000 MG PO TID Prescribed by: MANI BARILLAS on 10/19/18 1019 Cyclobenzaprine HCl 10 Mg Tablet, 10 MG PO TID Prescribed by: SANTIAGO NOYOLA on 02/10/19 145 Fluoxetine HCl 40 Mg Capsule, 40 MG PO DAILY, (Reported) Hydrocodone Bit/Acetaminophen 1 Tab Tab, 1 EACH PO Q4-6HR PRN for PAIN-MODERATE Prescribed by: INO PINTO on 05/30/191840 Hydrocodone Bit/Acetaminophen 1 Each Tablet, 0.5-1 TAB PO Q4H PRN for PAIN- SEVERE Prescribed by: RENU SALMON on 06/02/191910 Hydrocodone Bit/Acetaminophen 1 Each Tablet, 1-2 TAB PO Q6H Prescribed by: EMILY BLAKELY on 08/16/19 003 Ibuprofen 600 Mg Tablet, 600 MG PO Q6H Prescribed by: MANI BARILLAS on 10/19/18 101 Ibuprofen 800 Mg Tablet, 800 MG PO Q8H PRN for PAIN-MILD Prescribed by: EMILY TRUONGSTMAGDA on 08/16/1931 Metronidazole 500 Mg Tablet, 500 MG PO BID Prescribed by: RENU SALMON on 06/02/191910 Norgestimate-Ethinyl Estradiol 1 Each Tablet, 1 EACH PO DAILY, (Reported) Omeprazole 20 Mg Capsule.dr, 20 MG PO DAILY, (Reported) Ondansetron 8 Mg Tab.rapdis, 8 MG PO Q6H PRN for NAUSEA/VOMITING-1ST LINE Prescribed by: HANY VELASQUEZ on 02/25/172038 Oxycodone HCl 5 Mg Tablet, 5 MG PO Q6H PRN for pain Prescribed by: MANI BARILLAS on 10/19/18 101 Oxycodone HCl/Acetaminophen 1 Each Tablet, 1 TAB PO Q6H PRN for PAIN-MODERATE Prescribed by: SANTIAGO NOYOLA on 02/10/19 1457 Prednisone 20 Mg Tab, 40 MG PO DAILY Prescribed by: EMILY BLAKELY on 10/14/19 215 Promethazine HCl 25 Mg Tablet, 25 MG PO Q6H PRN for NAUSEA/VOMITING Prescribed by: MANI BARILLAS on 10/19/18 101 Sulfamethoxazole/Trimethoprim 1 Each Tablet, 1 EACH PO BID Prescribed by: INO PINTO on 05/30/19 184 Patient Home Medication List Home Medication List Reviewed: Yes Review of Systems Review of Systems Constitutional: see HPI; No fever; malaise EENTM: nose congestion; No hearing loss, No hoarseness, No throat pain, No throat swelling Respiratory: cough; No short of breath, No wheezing Cardiovascular: No chest pain, No palpitations Gastrointestinal: No abdominal pain, No nausea, No vomiting Musculoskeletal: No back pain, No joint pain Skin: No change in color, No rash Past Plquahb-Negzzg-Kdesud Hx Past Med/Social Hx: Reviewed Nursing Past Med/Soc Hx Patient Social History 2nd Hand Smoke Exposure: No Recent Foreign Travel: No Contact w/Someone Who Travel: No Recent Hopitalizations: No Immunizations Up To Date Tetanus Booster (TDap): Unknown Seasonal Allergies Seasonal Allergies: No Past Medical History Surgeries: Yes (LITHOTRIPSY) Respiratory: No Cardiac: No Neurological: No Genitourinary: Yes (MEDULARY SPONGE KIDNEY DISEASE) Kidney Stones Gastrointestinal: Yes Diverticulosis, Esophagitis Musculoskeletal: No Endocrine: No HEENT: No Cancer: No Psychosocial: No Integumentary: No Blood Disorders: No Family Medical History No Pertinent Family Hx Physical Exam Vital Signs - First Documented 10/14/19 21:32 Temp 38.1 Pulse 112 Resp 18 B/P (MAP) 167/79 (108) Pulse Ox 96 O2 Delivery Room Air Capillary Refill : Height: 5'8.00" Weight: 260lbs. 0oz. 117.993850oz; 41.00 BMI Method:Stated General Appearance: WD/WN, no apparent distress HEENT: TMs normal, pharynx normal, pharyngeal erythema; No tonsillar exudate; other (mod PND) Neck: non-tender, supple, normal inspection Respiratory: chest non-tender, lungs clear, normal breath sounds, no respiratory distress, no accessory muscle use Cardiovascular: regular rate, rhythm, no edema Neurologic/Psychiatric: alert, normal mood/affect Progress/Results/Core Measures Suspected Sepsis SIRS Temperature: Pulse: Respiratory Rate: Blood Pressure / Mean: Results/Orders Micro Results Microbiology 10/14/19 Influenza Types A,B Antigen (RUT) - Final, Complete My Orders Orders - EMILY BLAKELY DO Influenza A And B Antigens (10/14/19 21:40) Vital Signs/I&O 10/14/19 10/14/19 21:32 22:09 Temp 38.1 38.1 Pulse 112 108 Resp 18 18 B/P (MAP) 167/79 (108) 136/61 (108) Pulse Ox 96 96 O2 Delivery Room Air Capillary Refill : Departure Impression Primary Impression: Upper respiratory infection Qualified Codes: J06.9 - Acute upper respiratory infection, unspecified Disposition: HOME, SELF-CARE Condition: Stable Departure-Patient Inst. Referrals: [facility] (PCP) Primary Care Physician JENI BATES APRN (Family) Primary Care Physician Patient Instructions: Cough, Runny Nose, and the Common Cold (DC) Add. Discharge Instructions: Don't fill your Rx for the prednisone unless you have onset of wheezing All discharge instructions reviewed with patient and/or family. Voiced understanding. Scripts Prednisone (Prednisone) 20 Mg Tab 40 MG PO DAILY, #10 TAB 0 Refills Prov: EMILY BLAKELY DO 10/14/19 DIONNESTINEEMILY DO Oct 14, 2019 21:41
[2019-10-14] MEDS ORDERED: PRD20T PO (21:50)
[2019-10-14 22:09] VITALS: BP 136/61
--- OUTSIDE RECORDS SUMMARY | 2019-10-16 20:01 | XMS REPORT | Clinical Summary ---
Author Author [facility] Organization [facility] Address Unknown Phone Unavailable Care Team Providers Care Mill Oiler Name Role Phone Cherie Carney NP PCP Source Comments Some departments are not documenting in the electronic medical record. If you d o not see the information that you expected, contact Release of Information in [facility] Information Management department at [phone] for further assistan ce in locating additional records.[facility] Allergies Comments Active Allergy Reactions Severity Noted [...] 06/08/2018 Overview: 06/08/18: voiding every hour, urge, noct uria x 3, PVR 52cc, intermittent episodes of difficulty urinating L ast Assessment & Plan: Referral to PFPT May need to learn CIC Flank pain 06/08/2018 Overview: 06/08/18 left flank pain x 1 month, requ ested CT scans for review L ast Assessment & Plan: Requested CT scans for review FU with PMD as well regarding other mayda rces of flank pain History of recurrent UTIs 06/08/2018 Overview: History of UTIs as a child 06/08/18: requested records from PMD L ast Assessment & Plan: Request urine cultures for review - rev iewed with Erick [facility] Vitamin cocktail Manage constipation Kidney stone 05/26/2017 Overview: with history of medullary sponge kidney , recurrent UTIs, flank pain. She has history of recurrent stones ('black crystals") Voids q30 mintures; nocturia x 2. Drink s 40oz water. Describes dyspareunia On macrobid per her pmd for post-coital and swimming prophylaxis. On ycobenzaprine for "spasms." Renal US: unremarkable 06/08/18: history of stones, ER x 10, mu ltiple CT scans L ast Assessment & Plan: Requested CT scans for review Strain urine for stone collection and a nalysis Hold on 24 hour urine Referral to [...] Former Smoker Cigarettes Smokeless Tobacco: Never Used Drinks/Week oz/Week Comments Alcohol Use social drinker only Yes Sex Assigned at Date Recorded Not on file Industry Job Start Date Occupation Not on file Not on file Not on file Travel End Travel History Travel Start No recent travel history available. Last Filed Vital Signs Reading Time Taken Comments Vital Sign 110/71 06/08/2018 10:25 AM AREA COORDINATOR Blood Pressure 93 06/08/2018 10:25 AM AREA COORDINATOR Pulse 36.4 C (97.6 F) 03/22/2017 4:04 PM CDT Temperature - - Respiratory Rate 94% 03/22/2017 10:00 PM CDT Oxygen Saturation - - Inhaled Oxygen Concentration 125.6 kg (276 lb 12.8 oz) 06/08/2018 10:25 AM AREA COORDINATOR Weight 172.7 cm (5' 8") 06/08/2018 10:25 AM AREA COORDINATOR Height 42.09 06/08/2018 10:25 AM AREA COORDINATOR Body Mass Index Plan of Treatment Health Maintenance Due Date Last Done Comments DTAP/TDAP VACCINES (1 - 10/08/1999 Tdap) HIV SCREENING 10/08/2003 PHYSICAL (COMPREHENSIVE) 2006 EXAM CERVICAL CANCER SCREENING 2018 INFLUENZA VACCINE 03/04/2019 06/20/2008 Results Not on filefrom Last 3 Months Advance Directives Patient Electroplating Technician Explanation Type Date Recorded Advance 03/22/2017 4:39 PM Directive/DPOA
== END 2019-10-14 22:10 | disposition home or self-care (01) ==
LOC: EDUNIT# 21:27 → ER FS 21:29
DX: J06.9 Acute upper respiratory infection, unspecified (principal); Z88.0 Allergy status to penicillin
CPT/HCPCS: 87804

== ENCOUNTER → 2020-03-07 | Outpatient (CLI) | payer MEDICAID ==
[~2020-03-07] MED LIST changes: -OXYC-529 PO; +OXYC5TAB96 PO; +PRD20T PO
[2020-03-07 10:14] LABS: HEMOGLOBIN 12.3 G/DL (11.5-16.0); MEAN PLATELET VOLUME 11.3 FL (7.4-10.4); RED CELL DISTRIBUTION WIDTH 13.2 % (10.0-14.5); WHITE BLOOD COUNT 8.5 10^3/uL (4.3-11.0)
== END ==
LOC: LAB FS 09:28
PROVIDERS: ATTEND Family Medicine
DX: Z34.90 Encounter for supervision of normal pregnancy, unspecified, unspecified trimester (principal); Z3A.00 Weeks of gestation of pregnancy not specified
CPT/HCPCS: 36415; 82950; 85027; 86780

== ENCOUNTER 2020-04-24 15:20 | Inpatient (IN) | payer MEDICAID ==
[2020-04-24] VITALS (7 sets, daily range): BP systolic 108–138; BP diastolic 57–70
[~2020-04-24] VITALS: Ht 172.7 cm; Wt 128.1 kg
--- NOTE | 2020-04-24 15:20 | NUR ---
GLORIA CORNELL presented to unit via w/c from ED, accompanied by s/o, with c/o CONTRACTIONS. GLORIA CORNELL weighed, gowned, voided, and to bed. EFHM and TOCO applied, VS taken. GLORIA CORNELL oriented to bed controls, call light, TV, heat, and A/C controls.
--- NOTE | 2020-04-24 15:55 | NUR ---
Dr valles called with this RN's assessment and cervical exam. new orders received.
[2020-04-24] MEDS ORDERED: D5 LR IV SOLUTION 1,000 ML IV ONE (16:26)
[2020-04-24] MEDS ORDERED: BETAMETHASONE ACE/NA PHOS 6 MG/ML (CELESTONE SOLUSPAN) IM SCH (16:30)
[2020-04-24] MEDS ORDERED: BETAMETHASONE ACE/NA PHOS 6 MG/ML (CELESTONE SOLUSPAN) ONE (16:33)
[2020-04-24] MEDS: D5 LR IV SOLUTION 1,000 ML IV SCH ×2 (16:37→21:09)
[2020-04-24] MEDS ORDERED: MINERAL OIL CONCENTRATE 99.9% 15 ML UDC TOP PRN (16:45)
[2020-04-24 17:20] LABS: BASOPHILS % (AUTO) 0 % (0-10); EOSINOPHILS % (AUTO) 1 % (0-10); HEMATOCRIT 38 % (35-52); HEMOGLOBIN 12.7 G/DL (11.5-16.0); LYMPHOCYTES # (AUTO) 1.9 X 10^3 (1.0-4.0); LYMPHOCYTES % (AUTO) 23 % (12-44); MEAN CORPUSCULAR HEMOGLOBIN 29 PG (25-34); MEAN CORPUSCULAR HGB CONC 33 G/DL (32-36); MEAN CORPUSCULAR VOLUME 85 FL (80-99); MEAN PLATELET VOLUME 12.7 FL (7.4-10.4); MONOCYTES # (AUTO) 0.4 X 10^3 (0.0-1.0); MONOCYTES % (AUTO) 5 % (0-12); NEUTROPHILS % (AUTO) 72 % (42-75); PLATELET COUNT 154 10^3/uL (130-400); WHITE BLOOD COUNT 8.4 10^3/uL (4.3-11.0)
[2020-04-24 17:33] LABS: BILIRUBIN,URINE NEGATIVE (NEGATIVE); CLARITY,URINE CLEAR; COLOR,URINE YELLOW; GLUCOSE, URINE (UA) NEGATIVE (NEGATIVE); KETONES,URINE TRACE (NEGATIVE); LEUKOCYTE ESTERASE ,URINE 1+ (NEGATIVE); NITRITE,URINE NEGATIVE (NEGATIVE); PROTEIN,URINE NEGATIVE (NEGATIVE)
[2020-04-24 17:43] LABS: BACTERIA,URINE FEW /HPF
[2020-04-24] MEDS ORDERED: CLINDAMYCIN 900 MG/50 ML IVPB 50 ML IV SCH (18:00)
[2020-04-24] MEDS ORDERED: ACETAMINOPHEN 500 MG TAB (TYLENOL) PO PRN (18:00)
[2020-04-24] MEDS: CLINDAMYCIN 900 MG/50 ML IVPB 50 ML IV SCH (18:11)
[2020-04-24] MEDS ORDERED: fentaNYL INJECTION 100 MCG/2 ML AMP IVP ONE (18:30)
[2020-04-24] MEDS ORDERED: fentaNYL INJECTION 100 MCG/2 ML AMP IVP PRN (19:30)
[2020-04-24] MEDS: fentaNYL INJECTION 100 MCG/2 ML AMP IVP PRN ×2 (21:08→22:53)
[2020-04-24] MEDS ORDERED: hydrOXYzine (VISTARIL/ATARAX) 25 MG capsule/tablet ONE (21:10)
[2020-04-24] MEDS ORDERED: hydrOXYzine (ATARAX) 10 MG TAB PO ONE (21:15)
[2020-04-24] MEDS ORDERED: hydrOXYzine (VISTARIL/ATARAX) 25 MG capsule/tablet PO ONE (21:15)
[2020-04-24] MEDS ORDERED: CALCIUM CARBONATE 500 MG (TUMS) TAB.CHEW PO PRN (22:45)
[2020-04-25] MEDS: CATHETER FLUSH 10 ML SYR IV SCH ×2 (00:21→05:01)
[2020-04-25] MEDS: CLINDAMYCIN 900 MG/50 ML IVPB 50 ML IV SCH ×2 (02:00→09:17)
[2020-04-25 02:06] VITALS: BP 131/63
[2020-04-25] MEDS: fentaNYL INJECTION 100 MCG/2 ML AMP IVP PRN (02:12)
[2020-04-25] MEDS: D5 LR IV SOLUTION 1,000 ML IV SCH (05:22)
[2020-04-25 06:40] VITALS: BP 125/60
--- NOTE | 2020-04-25 08:51 | Diagnostic Imaging Report ---
INDICATION: labor. TECHNIQUE: The biophysical profile was performed in the routine fashion. COMPARISON: There is no previous study for comparison. FINDINGS: The fetus scored 2 out of 2 for movements, posture and tone, and amniotic fluid. The amniotic fluid index was 9.98 cm. The fetus scored 0 out of 2 for breathing. The heart rate was 130 BPM. The fetus is in cephalic presentation. IMPRESSION: The biophysical profile score is 6 out of 8. Dictated by: Dictated on workstation # [id number]
[2020-04-25] MEDS ORDERED: BETAMETHASONE ACE/NA PHOS 6 MG/ML (CELESTONE SOLUSPAN) IM SCH ×2 (09:00→16:00)
[2020-04-25 10:45] VITALS: BP 132/69
--- NOTE | 2020-04-25 11:50 | History & Physical-OB ---
OB - Chief Complaint & HPI Date/Time Date of Admission: Date of Admission: Apr 24, 2020 at 16:42 Date seen by a Provider: Apr 26, 2020 Time Seen by a Provider: 07:30 Chief Complaint/History OB-Reason for Admission/Chief: Labor Hx : 4 Hx Para: 2 Expected Date of Delivery: May 29, 2020 Gestational Age in Weeks: 35 Gestational Age in Days: 0 Other reason for admission: contractions with advanced dilation. Admission Nurse Assessment Rev: Yes Allergies and Home Medications Allergies Coded Allergies: Penicillins (Unverified Allergy, Unknown, 02/25/17) Home Medications Acetaminophen 500 Mg Tablet, 1,000 MG PO TID Prescribed by: MANI BARILLAS on 10/19/18 101 Cyclobenzaprine HCl 10 Mg Tablet, 10 MG PO TID Prescribed by: SANTIAGO NOYOLA on 02/10/191456 Fluoxetine HCl 40 Mg Capsule, 40 MG PO DAILY, (Reported) Hydrocodone Bit/Acetaminophen 1 Tab Tab, 1 EACH PO Q4-6HR PRN for PAIN-MODERATE Prescribed by: INO PINTO on 05/30/191840 Hydrocodone Bit/Acetaminophen 1 Each Tablet, 0.5-1 TAB PO Q4H PRN for PAIN-SEVER E Prescribed by: RENU SALMON on 06/02/191910 Hydrocodone Bit/Acetaminophen 1 Each Tablet, 1-2 TAB PO Q6H Prescribed by: EMILY BLAKELY on 08/16/1931 Ibuprofen 600 Mg Tablet, 600 MG PO Q6H Prescribed by: MANI BARILLAS on 10/19/181018 Ibuprofen 800 Mg Tablet, 800 MG PO Q8H PRN for PAIN-MILD Prescribed by: EMILY BLAKELY on 08/16/1931 Metronidazole 500 Mg Tablet, 500 MG PO BID Prescribed by: RENU SALMON on 06/02/191910 Norgestimate-Ethinyl Estradiol 1 Each Tablet, 1 EACH PO DAILY, (Reported) Omeprazole 20 Mg Capsule.dr, 20 MG PO DAILY, (Reported) Ondansetron 8 Mg Tab.rapdis, 8 MG PO Q6H PRN for NAUSEA/VOMITING-1ST LINE Prescribed by: HANY VELASQUEZ on 02/25/172038 Oxycodone HCl 5 Mg Tablet, 5 MG PO Q6H PRN for pain Prescribed by: MANI BARILLAS on 10/19/18 1019 Oxycodone HCl/Acetaminophen 1 Each Tablet, 1 TAB PO Q6H PRN for PAIN-MODERATE Prescribed by: SANTIAGO NOYOLA on 02/10/19 1457 Prednisone 20 Mg Tab, 40 MG PO DAILY Prescribed by: EMILY BLAKELY on 10/14/19 2150 Promethazine HCl 25 Mg Tablet, 25 MG PO Q6H PRN for NAUSEA/VOMITING Prescribed by: MANI BARILLAS on 10/19/18 1019 Sulfamethoxazole/Trimethoprim 1 Each Tablet, 1 EACH PO BID Prescribed by: INO PINTO on 05/30/19 1841 Patient Home Medication List Home Medication List Reviewed: Yes OB - History Hx of Present Care: Yes Ultrasounds: Normal mid trimester US Obstetrical Complications: None Medical Complications: None Delivery History Adverse Rxn to Tranfusion: No Patient Past Medical History pelvic pain Social History/Family History Recent Infectious Disease Expo: No Alcohol Use: Denies Use Recreational Drug Use: No 2nd Hand Smoke Exposure: No Immunizations Hepatitis A: Yes Hepatitis B: Yes Tetanus Booster (TDap): Unknown OB - Admission Exam Physical Exam Vitals: Vital Signs 04/24/20 04/25/20 19:30 06:40 Temp 36.0 Pulse 71 Resp 18 B/P (MAP) 125/60 (81) Pulse Ox 98 O2 Delivery Room Air HEENT: NCAT Heart: Rhythm Normal Lungs: Clear Abdomen: Gravid Extremities: Normal Reflexes: Normal Cervical Dilatation: 5cm Effacement: 75% Station: -1 Membranes: Intact Amniotic Fluid: Clear Heart Rate: 130's Accelerations: Accelerations Present Decelerations: No Decelerations Short Term Variability: Present Nursing Home Variability: Average (6-25) Contractions on Admission: < 5 Minutes Apart Labs Laboratory Tests Test 04/24/20 16:00 04/24/20 16:15 Range/Units Urine Color YELLOW Urine Clarity CLEAR Urine pH 6.0 5-9 Urine Specific [place] <=1.005 1.016-1.022 Urine Protein NEGATIVE NEGATIVE Urine Glucose (UA) NEGATIVE NEGATIVE Urine Ketones TRACE H NEGATIVE Urine Nitrite NEGATIVE NEGATIVE Urine Bilirubin NEGATIVE NEGATIVE Urine Urobilinogen 0.2 < = 1.0 MG/DL Urine Leukocyte Esterase 1+ H NEGATIVE Urine RBC (Auto) NEGATIVE NEGATIVE Urine RBC NONE /HPF Urine WBC 10-25 H /HPF Urine Squamous Epithelial Cells 10-25 H /HPF Urine Crystals NONE /LPF Urine Bacteria FEW H /HPF Urine Casts NONE /LPF Urine Mucus NEGATIVE /LPF Urine Culture Indicated CULTURE PENDING White Blood Count 8.4 4.3-11.0 10^3/uL Red Blood Count 4.45 4.35-5.85 10^6/uL Hemoglobin 12.7 11.5-16.0 G/DL Hematocrit 38 35-52 % Mean Corpuscular Volume 85 80-99 FL Mean Corpuscular Hemoglobin 29 25-34 PG Mean Corpuscular Hemoglobin Concent 33 32-36 G/DL Red Cell Distribution Width 13.9 10.0-14.5 % Platelet Count 154 130-400 10^3/uL Mean Platelet Volume 12.7 H 7.4-10.4 FL Neutrophils (%) (Auto) 72 42-75 % Lymphocytes (%) (Auto) 23 12-44 % Monocytes (%) (Auto) 5 0-12 % Eosinophils (%) (Auto) 1 0-10 % Basophils (%) (Auto) 0 0-10 % Neutrophils # (Auto) 6.0 1.8-7.8 X 10^3 Lymphocytes # (Auto) 1.9 1.0-4.0 X 10^3 Monocytes # (Auto) 0.4 0.0-1.0 X 10^3 Eosinophils # (Auto) 0.0 0.0-0.3 10^3/uL Basophils # (Auto) 0.0 0.0-0.1 10^3/uL OB - Assessment/Plan/Diagnosis Assessment Assessment: labor Admission Dx contractions at 35 0/7 wga with advanced dilation. GBS unknown. Admission Status: Inpatient Order (span 2 midnights) Reason for Inpatient Admission: labor Plan Other Plan Contractions spaced out without cervical change overnight. Patient still /- 1 with much decreased pain. GBS done. No infections. Will let her go home tonight after second betamethasone dose. Strict bed rest and return precautions. SELENA ABARCA MD Apr 25, 2020 11:50
--- NOTE | 2020-04-25 16:15 | NUR ---
GLORIA CORNELL demonstrates understanding of discharge instructions and accurately returns instructions upon questioning. Copy of Post-Discharge Instructions and Medication Discharge Instructions given to pateint. GLORIA CORNELL is able to manage continuing needs after discharge. Patients belongings returned to patient. Skin dry and intact; no breakdown noted. Patient discharged from [facility] on 04-25-20 at 1615. GLORIA CORNELL left floor via w/c, accompanied by staff and s/o.
== END 2020-04-25 16:15 | disposition home or self-care (01) | DRG 833 ==
LOC: LDRP 15:20 → WSo 15:20 → LDRP 16:42
PROVIDERS: ADMIT Family Medicine; ATTEND Family Medicine
DX: O60.03 Preterm labor without delivery, third trimester (principal); Z3A.35 35 weeks gestation of pregnancy
CPT/HCPCS: 36415; 76819; 81000; 85025; 86850; 86900; 86901; 87081; 87088

== ENCOUNTER 2020-04-27 15:41 | Outpatient (CLI) | payer MEDICAID ==
[~2020-04-27] VITALS: Ht 172.7 cm; Wt 129.5 kg
--- NOTE | 2020-04-27 15:36 | NUR ---
GLORIA CORNELL presented to unit via WHEELCHAIR from ED, accompanied by S.O., with c/o HEADACHE;ELEVATED BP. GLORIA CORNELL weighed, gowned, voided, and to bed. EFHM and TOCO applied, VS taken. GLORIA CORNELL oriented to bed controls, call light, TV, heat, and A/C controls.
[~2020-04-27 15:41] MED LIST changes: +OXC5T PO; -OXYC5TAB96 PO
[2020-04-27 15:50] VITALS: BP 132/61
[2020-04-27 16:00] VITALS: BP 132/61
[2020-04-27] MEDS ORDERED: DOCU-143 PO (16:06)
[2020-04-27] MEDS ORDERED: ACET-2267 PO (16:06)
[2020-04-27] MEDS ORDERED: PNV11TAB5 PO (16:06)
[2020-04-27 16:12] VITALS: BP 129/68
[2020-04-27 16:30] VITALS: BP 126/59
--- NOTE | 2020-04-27 16:33 | NUR ---
AMNIO SWAB NEGATIVE. SVE BY MARY LAINEZ. CERVIX 3.5-4 CM/60%/-2. VERY ACTIVE FETUS. FHR 145 WITH MOD VARIABILITY. + ACCELS. THIS RN HAS SEEN 2 CTXS 8 MINUTES APART/ 90-100 SEC DURATION/ MILD TO PALPATION.
--- NOTE | 2020-04-27 16:44 | NUR ---
DR. ABARCA NOTIFIED OF PT'S ARRIVAL, GESTATIONAL AGE, CERVICAL EXAM, CTXS X3 IN PAST HOUR, C/O HEADACHE X2 DAYS, REACTIVE NST, OCC MILD VARIABLE, AND VSS. ORDER FOR FIORICET AND TO DISCHARGE WITH F/U SCHEDULED TOMORROW IN OFFICE.
--- NOTE | 2020-04-27 16:50 | NUR ---
REACTIVE NST. SINCE SVE CTXS ARE 3-6 MIN APART/60-90 SEC DURATION AND MILD TO PALPATION.
[2020-04-27 16:51] VITALS: BP 129/60
--- NOTE | 2020-04-27 16:55 | NUR ---
FIORICET GIVEN P.O. FOR C/O HEADACHE. 1656 EFM OFF. UP TO GET DRESSED.
[2020-04-27] MEDS ORDERED: ACET/BUTAL/CAFF (FIORICET) TAB PO ONE (17:00)
--- NOTE | 2020-04-27 17:15 | NUR ---
ENCOURAGED PT TO DRINK LOTS OF WATER AND REST THIS EVENING.
[2020-04-27 17:25] VITALS: BP 129/60
--- NOTE | 2020-04-27 17:25 | NUR ---
DISCHARGE INSTRUCTIONS REVIEWED WITH PT AND COPY GIVEN. STATES UNDERSTANDING OF ALL INSTRUCTIONS AND NEED TO F/U TOMORROW SCHEDULED AND NEEDED. DISMISSED VIA W/C IN STABLE CONDITION ACC BY SPOUSE.
--- NOTE | 2020-04-28 08:33 | Physician Query-Final Dx ---
Clinic Account Progress/Dx Physician Query: Please give diagnosis Please include #weeks gestation Date of Service Apr 27, 2020 at 15:41 MACY BAUGH Apr 28, 2020 08:32
== END 2020-04-27 17:25 | disposition home or self-care (01) ==
LOC: LDRP 15:41 → WSo 15:41
PROVIDERS: ATTEND Family Medicine
DX: O26.893 Other specified pregnancy related conditions, third trimester (principal); R51 Headache; Z3A.35 35 weeks gestation of pregnancy
CPT/HCPCS: 99213

== ENCOUNTER 2020-05-12 04:49 | Inpatient (IN) | payer MEDICAID ==
[2020-05-12] VITALS (29 sets, daily range): BP systolic 110–149; BP diastolic 56–91
--- NOTE | 2020-05-12 04:45 | NUR ---
GLORIA CORNELL presented to unit via WC from ED, accompanied by KAM JALLOH , with c/o CONTRACTIONS. GLORIA CORNELL weighed, gowned, voided, and to bed. EFHM and TOCO applied, VS taken. GLORIA CORNELL oriented to bed controls, call light, TV, heat, and A/C controls. ABOVE AND FURTHER ASSESSMENT PER ERIC LAINEZ.
--- NOTE | 2020-05-12 04:46 | NUR ---
HT WT not obtained r/t pt condition
[~2020-05-12 04:49] MED LIST changes: +DOCU-143 PO; +PNV11TAB5 PO
[2020-05-12] MEDS ORDERED: D5 LR IV SOLUTION 1,000 ML IV SCH (04:57)
[2020-05-12] MEDS ORDERED: MINERAL OIL CONCENTRATE 99.9% 15 ML UDC TOP PRN (05:00)
[2020-05-12] MEDS ORDERED: LACTATED RINGERS 1,000 ML IV ONE (05:15)
[2020-05-12] MEDS ORDERED: OXYTOCIN PRE-MIX DRIP 500 ML IV SCH ×2 (05:17→07:44)
[2020-05-12 05:18] LABS: BASOPHILS # (AUTO) 0.1 10^3/uL (0.0-0.1); BASOPHILS % (AUTO) 1 % (0-10); EOSINOPHILS # (AUTO) 0.1 10^3/uL (0.0-0.3); EOSINOPHILS % (AUTO) 1 % (0-10); HEMATOCRIT 36 % (35-52); LYMPHOCYTES # (AUTO) 2.5 10^3/uL (1.0-4.0); LYMPHOCYTES % (AUTO) 29 % (12-44); MEAN CORPUSCULAR HEMOGLOBIN 28 pg (25-34); MEAN CORPUSCULAR HGB CONC 33 g/dL (32-36); MEAN CORPUSCULAR VOLUME 85 fL (80-99); MEAN PLATELET VOLUME 11.9 fL (9.0-12.2); MONOCYTES # (AUTO) 0.5 10^3/uL (0.0-1.0); MONOCYTES % (AUTO) 6 % (0-12); NEUTROPHILS # (AUTO) 5.6 10^3/uL (1.8-7.8); NEUTROPHILS % (AUTO) 63 % (42-75); PLATELET COUNT 142 10^3/uL (130-400); WHITE BLOOD COUNT 8.8 10^3/uL (4.3-11.0)
[2020-05-12] MEDS ORDERED: LIDOCAINE/EPI 2% 1:200,00 (XYLOCAINE) 10 ML VIAL ONE ×2 (05:26→11:08)
--- NOTE | 2020-05-12 05:31 | NUR ---
Selin Malik CRNA called for epidural.
--- NOTE | 2020-05-12 05:31 | NUR ---
Dr. Cutler called by Eric Waggoner RN and updated on cervical change. Dr. aj nieto.
[2020-05-12] MEDS ORDERED: fentaNYL 2 mcg/ml BUPIVA 0.125 0 ML ONE (05:35)
--- NOTE | 2020-05-12 05:50 | NUR ---
Selin Malik crna called and cancelled epidural placement at this time.
[2020-05-12] MEDS ORDERED: CATHETER FLUSH 10 ML SYR IV SCH ×2 (06:00→14:00)
[2020-05-12] MEDS ORDERED: fentaNYL 2 mcg/ml BUPIVA 0.125 100 ML ONE (06:12)
--- NOTE | 2020-05-12 06:16 | NUR ---
J. READING FULL STACK PYTHON DEVELOPER called to come place epidural j. reading cement grinding mill operator already in house.
[2020-05-12] MEDS ORDERED: BUPIVACAINE SPINAL 0.75% (SENSORCAINE) 2 ML AMP ONE (06:20)
[2020-05-12] MEDS ORDERED: fentaNYL INJECTION 100 MCG/2 ML AMP ONE (06:39)
[2020-05-12] MEDS ORDERED: LACTATED RINGERS 1,000 ML IV SCH (06:47)
[2020-05-12] MEDS ORDERED: diphenhydrAMINE 50 MG/ML INJ (BENADRYL) IV PRN (07:00)
[2020-05-12] MEDS ORDERED: EPIDURAL (fentaNYL 2 MCG/ML BUPIVA 0.125%)100 ML BAG EPI SCH (07:00)
[2020-05-12] MEDS ORDERED: METOCLOPRAMIDE INJ 10 MG/2 ML (REGLAN) IV PRN (07:00)
[2020-05-12] MEDS ORDERED: ONDANSETRON 4 MG/2 ML (SDV) Z0FRAN IV PRN (07:00)
[2020-05-12] MEDS ORDERED: NALOXONE 0.4 MG/ML 1 ML (NARCAN) VIAL IV PRN ×2 (07:00)
--- NOTE | 2020-05-12 07:02 | History & Physical-OB ---
OB - Chief Complaint & HPI Date/Time Date of Admission: Date of Admission: May 12, 2020 at 04:59 Date seen by a Provider: May 12, 2020 Time Seen by a Provider: 06:30 Chief Complaint/History OB-Reason for Admission/Chief: Onset of Labor Hx : 4 Hx Para: 2 Expected Date of Delivery: May 29, 2020 Gestational Age in Weeks: 37 Gestational Age in Days: 4 Admission Nurse Assessment Rev: Yes Allergies and Home Medications Allergies Coded Allergies: Penicillins (Unverified Allergy, Unknown, 02/25/17) Home Medications Acetaminophen 500 Mg Tablet, 1,000 MG PO PRN, (Reported) Docusate Sodium 100 Mg Capsule, 100 MG PO DAILY, (Reported) Lsq383/FA/Omega3/Dha/Fish Oil 1 Each Tab.chew, 2 EACH PO DAILY, (Reported) Promethazine HCl 25 Mg Tablet, 25 MG PO Q6H PRN for NAUSEA/VOMITING Prescribed by: MANI BARILLAS on 10/19/18 1019 Patient Home Medication List Home Medication List Reviewed: Yes OB - History Hx of Present Care: Yes Ultrasounds: Normal mid trimester US Obstetrical Complications: None Medical Complications: None Delivery History Adverse Rxn to Tranfusion: No Patient Past Medical History pelvic pain Social History/Family History Alcohol Use: Denies Use Recreational Drug Use: No 2nd Hand Smoke Exposure: No Immunizations Hepatitis A: Yes Hepatitis B: Yes Tetanus Booster (TDap): Unknown OB - Admission Exam Physical Exam Vitals: Vital Signs 05/12/20 05/12/20 05:25 05:48 Temp 36.5 Pulse 74 Resp 18 B/P (MAP) 137/68 (91) Pulse Ox 96 O2 Delivery Room Air HEENT: NCAT Heart: Rhythm Normal Lungs: Clear Abdomen: Gravid Extremities: Normal Reflexes: Normal Cervical Dilatation: 8cm Effacement: 100% Station: -2 Membranes: Ruptured Amniotic Fluid: Clear Heart Rate: 140's Accelerations: Accelerations Present Decelerations: No Decelerations Short Term Variability: Present Detention Variability: Average (6-25) Contractions on Admission: < 5 Minutes Apart Labs Laboratory Tests Test 05/12/20 05:00 Range/Units White Blood Count 8.8 4.3-11.0 10^3/uL Red Blood Count 4.25 3.80-5.11 10^6/uL Hemoglobin 12.0 11.5-16.0 g/dL Hematocrit 36 35-52 % Mean Corpuscular Volume 85 80-99 fL Mean Corpuscular Hemoglobin 28 25-34 pg Mean Corpuscular Hemoglobin Concent 33 32-36 g/dL Red Cell Distribution Width 13.6 10.0-14.5 % Platelet Count 142 130-400 10^3/uL Mean Platelet Volume 11.9 9.0-12.2 fL Immature Granulocyte % (Auto) 1 % Neutrophils (%) (Auto) 63 42-75 % Lymphocytes (%) (Auto) 29 12-44 % Monocytes (%) (Auto) 6 0-12 % Eosinophils (%) (Auto) 1 0-10 % Basophils (%) (Auto) 1 0-10 % Neutrophils # (Auto) 5.6 1.8-7.8 10^3/uL Lymphocytes # (Auto) 2.5 1.0-4.0 10^3/uL Monocytes # (Auto) 0.5 0.0-1.0 10^3/uL Eosinophils # (Auto) 0.1 0.0-0.3 10^3/uL Basophils # (Auto) 0.1 0.0-0.1 10^3/uL Immature Granulocyte # (Auto) 0.1 0.0-0.1 10^3/uL OB - Assessment/Plan/Diagnosis Assessment Assessment: active labor Admission Dx Active labor at 37 4/7 wga Admission Status: Inpatient Order (span 2 midnights) Reason for Inpatient Admission: Active labor at 37 4/7 wga. Plan Plan: Expectant Management Other Plan Epidural for pain. GBS negative. Expectant management. SELENA ABARCA MD May 12, 2020 07:02
--- NOTE | 2020-05-12 07:07 | Discharge Summary ---
Discharge Inst-Women's Serv Reconcile Patient Problems Problems Reviewed?: Yes Follow Up/Instructions Goal/Follow Up: Dr. Abarca in 6 weeks. Activity Activity: Activity as Tolerated Driving Instructions: You May Drive NO SMOKING: NO SMOKING Nothing Inside Vagina: No Douching, No [place], No Tampons Diet Discharge Diet: No Restrictions Symptoms to Report to : Fever Over 101 Degrees F, Vaginal Bleeding Increase For Any Problems or Questions: Contact Your Physician SELENA ABARCA MD May 12, 2020 07:07
[2020-05-12] MEDS ORDERED: BENZOCAINE/MENTHOL (DERMOPLAST) 60 ML CAN TP PRN (07:15)
[2020-05-12] MEDS ORDERED: MEASLES,MUMPS,RUBELLA 1 EA INJ SQ ONE (07:15)
[2020-05-12] MEDS ORDERED: WITCH HAZEL(TUCKS) 40 EA JAR TOP PRN (07:15)
[2020-05-12] MEDS ORDERED: TETANUS,DIPTH,PERTUSS P/F (BOOSTRIX) 0.5 ML VIAL IM ONE (07:15)
[2020-05-12] MEDS: OXYTOCIN PRE-MIX DRIP 500 ML IV SCH ×2 (08:40→09:11)
--- NOTE | 2020-05-12 09:43 | NUR ---
Infant remains in arms. appropriate bonding noted. IV converted to HL. pitocin infusion completed. FFu/0. moderate rubra noted. luis angel-care offered. LE's remain heavy, unable to move without assist.
--- NOTE | 2020-05-12 10:54 | OB Labor & Delivery Record ---
Vag Delivery Note Vag Delivery Note Date of Delivery: 05/12/20 Preoperative Diagnosis: Bernice Arambula is a (29 /Para 4 / 2,Gestational Age (wks)37with [4 days] Postoperative Diagnosis: Same Surgeon: SELENA ABARCA Welder Oxyhydrogen: [none] Anesthesia: [epidural] Delivery Type: [] Findings: [] Viable [male] , apgars [9/9] Lacerations: Intact placenta with 3 vessel cord. No nuchal cord, body cord or shoulder dystocia Estimated Blood Loss: [200] ml Complications: None Condition: Stable Description of Procedure: The patient is a 29 year old female who presented [in labor]. She was admitted and informed consent was obtained. Her labor course was remarkable for [nothing] She progressed to complete dilatation and began to push. She was then set up for delivery. The 's head was delivered atraumatically in the [OA] position. The shoulders and remainder of the infant's body were then delivered without difficulty. Upon delivery, the head was held below the level of the perineum and the mouth and nares were bulb suctioned. The cord was doubly clamped and cut after 60 seconds on maternal abdomen by father of the baby. An intact placenta with 3-vessel cord delivered via Gigi and there was found to be minimal bleeding.~ Vigorous fundal massage was performed and the fundus was found to be firm. IV oxytocin was given. Examination of the vagina and perineum revealed a [2nd degree perineal] laceration repaired in the usual fashion with 3-0 vicryl suture. Following the repair, sponge, instrument and needle counts were correct. Mom and baby were both in stable condition in the labor suite. Vitals - Labs Vital Signs - I&O Vital Signs Date Time Temp Pulse Resp B/P (MAP) Pulse Ox O2 Delivery O2 Flow Rate FiO2 05/12/20 09:00 83 18 120/57 (78) Room Air 05/12/20 08:45 36.7 85 18 128/62 (84) Room Air 05/12/20 08:30 77 18 121/58 (79) 96 Room Air 05/12/20 08:15 76 18 127/63 (84) 96 Room Air 05/12/20 08:00 80 18 124/68 (86) 96 Room Air 05/12/20 07:45 80 18 128/73 (91) 96 Room Air 05/12/20 07:30 86 18 116/57 (76) 96 Room Air 05/12/20 07:15 35.8 76 18 115/58 (77) 94 Room Air 05/12/20 07:10 79 18 128/61 (83) 95 Room Air 05/12/20 07:05 78 18 130/60 (83) 96 Room Air 05/12/20 06:57 89 18 133/59 (83) 96 Room Air 05/12/20 06:55 82 18 136/57 (83) 96 Room Air 05/12/20 06:52 85 18 127/59 (81) 96 Room Air 05/12/20 06:47 80 18 126/58 (80) 96 Room Air 05/12/20 06:45 75 18 132/62 (85) 96 Room Air 05/12/20 06:37 68 18 149/73 (98) 96 Room Air 05/12/20 06:30 75 18 145/63 (90) 96 Room Air 05/12/20 05:48 36.5 74 18 96 Room Air 05/12/20 05:25 77 18 137/68 (91) 96 Room Air 05/12/20 05:00 36.5 74 18 145/68 (93) 96 Room Air Labs Laboratory Tests 05/12/20 05:00: White Blood Count 8.8, Red Blood Count 4.25, Hemoglobin 12.0, Hematocrit 36, Mean Corpuscular Volume 85, Mean Corpuscular Hemoglobin 28, Mean Corpuscular Hemoglobin Concent 33, Red Cell Distribution Width 13.6, Platelet Count 142, Mean Platelet Volume 11.9, Immature Granulocyte % (Auto) 1, Neutrophils (%) (Auto) 63, Lymphocytes (%) (Auto) 29, Monocytes (%) (Auto) 6, Eosinophils (%) (Auto) 1, Basophils (%) (Auto) 1, Neutrophils # (Auto) 5.6, Lymphocytes # (Auto) 2.5, Monocytes # (Auto) 0.5, Eosinophils # (Auto) 0.1, Basophils # (Auto) 0.1, Immature Granulocyte # (Auto) 0.1 SELENA ABARCA MD May 12, 2020 10:54
[2020-05-12] MEDS: IBUPROFEN 600 MG (MOTRIN) TAB PO SCH ×3 (10:55→22:58)
[2020-05-12] MEDS ORDERED: IBUP-844 PO (10:57)
--- NOTE | 2020-05-12 11:00 | NUR ---
scheduled Motrin p.o. given- see eMar for further. able to move LE's slightly, will cont to monitor.
--- NOTE | 2020-05-12 11:14 | NUR ---
report given to MIGEL Diaz.
--- NOTE | 2020-05-12 12:19 | NUR ---
Fundus firm U/1 with small rubra lochia noted. Pericare completed and clean pads placed.
--- NOTE | 2020-05-12 14:30 | NUR ---
Fundus firm U/1 with small rubra lochia noted. Patient transferred to room 311 via wheelchair. Patient up to restroom, + void noted. Pericare reviewed and clean pad and panties applied.
[2020-05-12] MEDS: ACETAMINOPHEN 500 MG TAB (TYLENOL) PO SCH ×2 (14:44→21:21)
[2020-05-12] MEDS: DOCUSATE SODIUM 100 MG (COLACE) CAP PO SCH ×2 (15:22→20:21)
--- NOTE | 2020-05-12 19:50 | NUR ---
Pt out of shower. Up in room denies needs. will monitor.
--- NOTE | 2020-05-12 21:26 | NUR ---
Pt requesting IV out and up to shower. IV out per Lisset Schroeder RN. Pt up to shower. Denies further needs at this time.
--- NOTE | 2020-05-12 21:27 | Postpartum Progress Note ---
Note Note Day # 1 Subjective: This patient I am rounding on for Dr. Cutler who performed uncomplicated NVD yesterday. Patient is without complaints. Ambulating, voiding. Tolerating a regular diet without nausea or vomiting. Normal lochia. Pain is well controlled with oral pain medications. Objective: Physical Exam: General - Alert and oriented, no apparent distress Abdomen - Soft, appropriately tender to palpation, non-distended, fundus firm at umbilicus Extremities - no edema, negative Arlene's bilaterally Assessment: PPD 1 NVD Plan: Routine care. Encourage breast feeding. Encourage ambulation. Ferrous sulfate supplementation. Plan for discharge today Vitals - Labs Vital Signs - I&O Vital Signs Date Time Temp Pulse Resp B/P (MAP) Pulse Ox O2 Delivery O2 Flow Rate FiO2 05/12/20 19:25 36.3 79 18 128/91 (103) 96 Room Air 05/12/20 15:49 36.3 83 18 110/59 (76) 96 Room Air 05/12/20 12:19 36.9 90 18 117/61 (79) 95 Room Air 05/12/20 11:00 80 60 132/60 (84) Room Air 05/12/20 10:45 126 60 122/57 (78) Room Air 05/12/20 10:30 77 18 122/57 (78) Room Air 05/12/20 10:15 76 18 125/85 (98) Room Air 05/12/20 10:00 71 18 119/56 (77) Room Air 05/12/20 09:00 83 18 120/57 (78) Room Air 05/12/20 08:45 36.7 85 18 128/62 (84) Room Air 05/12/20 08:30 77 18 121/58 (79) 96 Room Air 05/12/20 08:15 76 18 127/63 (84) 96 Room Air 05/12/20 08:00 80 18 124/68 (86) 96 Room Air 05/12/20 07:45 80 18 128/73 (91) 96 Room Air 05/12/20 07:30 86 18 116/57 (76) 96 Room Air 05/12/20 07:15 35.8 76 18 115/58 (77) 94 Room Air 05/12/20 07:10 79 18 128/61 (83) 95 Room Air 05/12/20 07:05 78 18 130/60 (83) 96 Room Air 05/12/20 06:57 89 18 133/59 (83) 96 Room Air 05/12/20 06:55 82 18 136/57 (83) 96 Room Air 05/12/20 06:52 85 18 127/59 (81) Room Air 05/12/20 06:47 80 18 126/58 (80) 96 Room Air 05/12/20 06:45 75 18 132/62 (85) 96 Room Air 05/12/20 06:37 68 18 149/73 (98) 96 Room Air 05/12/20 06:30 75 18 145/63 (90) 96 Room Air 05/12/20 05:48 36.5 74 18 96 Room Air 05/12/20 05:25 77 18 137/68 (91) Room Air 05/12/20 05:00 36.5 74 18 145/68 (93) Room Air I & O 05/12/20 07:00 Intake Total 1000 ml Balance 1000 ml Labs Laboratory Tests 05/12/20 05:00: White Blood Count 8.8, Red Blood Count 4.25, Hemoglobin 12.0, Hematocrit 36, Mean Corpuscular Volume 85, Mean Corpuscular Hemoglobin 28, Mean Corpuscular Hemoglobin Concent 33, Red Cell Distribution Width 13.6, Platelet Count 142, Mean Platelet Volume 11.9, Immature Granulocyte % (Auto) 1, Neutrophils (%) (Auto) 63, Lymphocytes (%) (Auto) 29, Monocytes (%) (Auto) 6, Eosinophils (%) (Auto) 1, Basophils (%) (Auto) 1, Neutrophils # (Auto) 5.6, Lymphocytes # (Auto) 2.5, Monocytes # (Auto) 0.5, Eosinophils # (Auto) 0.1, Basophils # (Auto) 0.1, Immature Granulocyte # (Auto) 0.1 JESUS MANUEL MICHAELS DO May 12, 2020 21:27
[2020-05-13 04:00] VITALS: BP 121/63
[2020-05-13] MEDS: IBUPROFEN 600 MG (MOTRIN) TAB PO SCH ×2 (04:56→11:09)
[2020-05-13 05:04] LABS: BASOPHILS % (AUTO) 0 % (0-10); EOSINOPHILS # (AUTO) 0.1 10^3/uL (0.0-0.3); EOSINOPHILS % (AUTO) 2 % (0-10); HEMATOCRIT 33 % (35-52); HEMOGLOBIN 10.7 g/dL (11.5-16.0); LYMPHOCYTES # (AUTO) 2.5 10^3/uL (1.0-4.0); LYMPHOCYTES % (AUTO) 27 % (12-44); MEAN CORPUSCULAR HEMOGLOBIN 28 pg (25-34); MEAN CORPUSCULAR HGB CONC 33 g/dL (32-36); MEAN CORPUSCULAR VOLUME 86 fL (80-99); MEAN PLATELET VOLUME 12.2 fL (9.0-12.2); MONOCYTES # (AUTO) 0.5 10^3/uL (0.0-1.0); MONOCYTES % (AUTO) 5 % (0-12); NEUTROPHILS # (AUTO) 6.3 10^3/uL (1.8-7.8); NEUTROPHILS % (AUTO) 66 % (42-75); PLATELET COUNT 127 10^3/uL (130-400); WHITE BLOOD COUNT 9.5 10^3/uL (4.3-11.0)
[2020-05-13] MEDS: ACETAMINOPHEN 500 MG TAB (TYLENOL) PO SCH (06:54)
[2020-05-13 08:00] VITALS: BP 127/68
--- NOTE | 2020-05-13 08:00 | NUR ---
A.M. ASSESSMENT COMPLETED. VSS. CARING FOR IN ROOM. GOOD INTERACTION NOTED.
[2020-05-13] MEDS: DOCUSATE SODIUM 100 MG (COLACE) CAP PO SCH (08:24)
--- NOTE | 2020-05-13 08:54 | Anesthesia-Regional Post-Op ---
Regional Patient Condition Mental Status: Alert, Oriented x3 Circulation: Same as Pre-Op Headache: Absent Sensation: Full Recovery Motor Block: Absent Post Op Complications Complications None Follow Up Care/Instructions Patient Instructions None needed. Anesthesia/Patient Condition Patient is doing well, no complaints, stable vital signs, no apparent adverse anesthesia problems. No complications reported per nursing. [place] [facility] [place]: Yes CLEO FREEMAN CRNA May 13, 2020 08:54
--- NOTE | 2020-05-13 12:15 | NUR ---
DISCHARGE INSTRUCTIONS REVIEWED WITH COPY TO PT. STATES UNDERSTANDING OF ALL INSTRUCTIONS AND NEED TO F/U INSTRUCTED AND NEEDED.
[2020-05-13 13:15] VITALS: BP 127/68
--- NOTE | 2020-05-13 13:15 | NUR ---
DISMISSED AMB FROM [facility] WITH INFANT TO FAMILY CAR (WITH PARENTS WAITING) IN STABLE CONDITION ACC BY SHANE KLINE RN
== END 2020-05-13 13:15 | disposition home or self-care (01) | DRG 807 ==
LOC: WSo 04:49 → LDRP 04:49 → WSo 04:58 → LDRP 04:59
PROVIDERS: ADMIT Family Medicine; ATTEND Family Medicine
PROC: 10E0XZZ Delivery of Products of Conception, External Approach (ICD-10-PCS; principal; 2020-05-12)
PROC: 0KQM0ZZ Repair Perineum Muscle, Open Approach (ICD-10-PCS; 2020-05-12)
DX: O70.1 Second degree perineal laceration during delivery (principal); Z37.0 Single live birth; Z3A.37 37 weeks gestation of pregnancy
CPT/HCPCS: 36415; 85025; 86850; 86900; 86901; 99212

== ENCOUNTER → 2020-06-16 | Outpatient (CLI) | payer MEDICAID ==
[~2020-06-16] MED LIST changes: +CATHETER FLUSH 10 ML SYR IV PRN; +HOLD METFORMIN - RECEIVED CONTRAST 20 ML VIAL IV SCH; +IBUP-844 PO; +IOHEXOL 350 MG/ML 100 ML (OMNIPAQUE 350) VIAL IV ONE; +NS 100 ML (IVPB) BAG IV ONE
--- NOTE | 2020-06-16 14:10 | Diagnostic Imaging Report ---
PROCEDURE: CT abdomen and pelvis with contrast, rule out appendicitis. TECHNIQUE: Multiple contiguous axial images were obtained through the abdomen and pelvis after the administration of intravenous contrast. All CT scans use one or more of the following dose optimizing techniques: automated exposure control, MA and/or KvP adjustment based on patient size and exam type or iterative reconstruction. INDICATION: Right lower quadrant pain of one months duration COMPARISON with study 06/02/2019 FINDINGS: The liver, gallbladder, spleen, adrenals, pancreas unremarkable. There is no hydroureteronephrosis. The appendix is visualized and unremarkable, normal in caliber. No convincing evidence for periappendiceal edema. No abscess, hematoma or other acute fluid collection. No pneumatosis or free air. There is no diverticulitis. There is no ileus or bowel obstruction. No perienteric or pericolonic edema. The uterus, adnexa and urinary bladder unremarkable. IMPRESSION: Unremarkable appendix, unobstructed urinary tracts. No inflammatory process or acute appearing abnormalities. Dictated by: Dictated on workstation # [id number]
== END ==
LOC: RAD FS 13:26
PROVIDERS: ATTEND Family Medicine
DX: R10.31 Right lower quadrant pain (principal)
CPT/HCPCS: 74177

== ENCOUNTER 2021-06-06 15:44 | Emergency (ER) | payer MEDICAID ==
[~2021-06-06] VITALS: Ht 172.7 cm; Wt 117.2 kg
[2021-06-06] MEDS ORDERED: KETOROLAC 30 MG/ML VIAL IVP STA (16:02)
[2021-06-06] MEDS ORDERED: NS IV 1000 ML 1,000 ML IV SCH (16:15)
[2021-06-06 16:27] LABS: BUN/CREATININE RATIO 22; CALCIUM 9.2 MG/DL (8.5-10.1); CARBON DIOXIDE 23 MMOL/L (21-32); CHLORIDE 106 MMOL/L (98-107); CREATININE SERUM 0.55 MG/DL (0.60-1.30); GFR ESTIMATED 128; GLUCOSE 94 MG/DL (70-105); POTASSIUM 4.4 MMOL/L (3.6-5.0); SODIUM 138 MMOL/L (135-145)
[2021-06-06 16:28] LABS: ALANINE AMINOTRANSFERASE 9 U/L (0-55); ALBUMIN 4.1 GM/DL (3.2-4.5); ALKALINE PHOSPHATASE 128 U/L (40-136); BILIRUBIN,TOTAL < 0.2 MG/DL (0.1-1.0); TOTAL PROTEIN 6.8 GM/DL (6.4-8.2)
[2021-06-06] MEDS ORDERED: HOLD METFORMIN - RECEIVED CONTRAST 20 ML VIAL IV SCH (16:45)
[2021-06-06] MEDS ORDERED: NS 100 ML (IVPB) BAG IV ONE (16:45)
[2021-06-06] MEDS ORDERED: IOHEXOL 350 MG/ML 100 ML (OMNIPAQUE 350) VIAL IV ONE (16:45)
[2021-06-06] MEDS ORDERED: CATHETER FLUSH 10 ML SYR IV PRN (16:45)
--- NOTE | 2021-06-06 16:51 | Diagnostic Imaging Report ---
INDICATION: Abdominal pain and right lower quadrant, history of renal stones and medullary sponge kidney. TECHNIQUE: Multiple contiguous axial images were obtained through the abdomen and pelvis after the administration of intravenous contrast. All CT scans use one or more of the following dose optimizing techniques: automated exposure control, MA and/or KvP adjustment based on patient size and exam type or iterative reconstruction. COMPARISON: 06/16/2020. FINDINGS: The visualized portions of the lung bases are clear. There are no pleural fluid collections. There is no free intraperitoneal air. The liver and gallbladder appear unremarkable. The spleen, adrenals and pancreas appear unremarkable. Kidneys, bilaterally, show no hydronephrosis or ureteral stone. There is no retroperitoneal mass or adenopathy. There is no ascites or abnormal fluid collection. Visualized bowel loops show no sign of obstruction. The appendix appears unremarkable. There is no adnexal mass or free fluid. There is no pelvic mass or adenopathy. IMPRESSION: Negative CT the abdomen and pelvis, no change from 06/16/2020. Dictated by: Dictated on workstation # [id number]
[2021-06-06] MEDS ORDERED: fentaNYL INJ 100 MCG/2 ML AMP IVP STA (17:00)
[2021-06-06 17:05] LABS: BILIRUBIN,URINE NEGATIVE (NEGATIVE); CLARITY,URINE CLEAR; GLUCOSE, URINE (UA) NEGATIVE (NEGATIVE); KETONES,URINE NEGATIVE (NEGATIVE); LEUKOCYTE ESTERASE ,URINE NEGATIVE (NEGATIVE); NITRITE,URINE NEGATIVE (NEGATIVE); PH,URINE 7.5 (5-9); PROTEIN,URINE NEGATIVE (NEGATIVE)
[2021-06-06 17:13] LABS: BACTERIA,URINE NEGATIVE /HPF; COLOR,URINE OTHER; RBC,URINE 25-50 /HPF; SQUAMOUS EPITHELIAL CELL,UR RARE /HPF
--- NOTE | 2021-06-06 17:13 | ED Abdominal Pain ---
General Chief Complaint: - Reproductive Stated Complaint: RT SIDE LOWER ABD PAIN,HEAVY BLEEDING Nursing Triage Note: Patient presents to the ED with c/o right lower abdominal pain and heavy vaginal bleeding. She reports that she has been having right sided abdominal pain for the past week and yesterday she started her period. She states she hasn't had a period since her child was born 1 year ago due to . She reports that she saw her pcp this morning and had labs and an ultrasound done and reported the findings as normal. She states that she is still having severe pain and wanted to be evaluated further in the ED. Source of Information: Patient Exam Limitations: No Limitations History of Present Illness Date Seen by Provider: Jun 06, 2021 Time Seen by Provider: 16:04 Initial Comments Here with report of right lower quadrant abdominal pain and heavy vaginal bleeding. She is having her first period after delivery of her baby 13 months ago. She has been breast-feeding but that has decreased recently and she started her period. She also has history of spongy kidney disease and it is not uncommon for her to pass a kidney stone. She thinks she passed one last week on the right side but had some intermittent persistent pain that was markedly worse today. She was seen by her primary care provider who ordered and obtained ultrasound with negative results for ovarian problems. She had labs drawn and was going to get CT abdomen and pelvis with contrast for appendicitis but was unable to gain that and was having increasing pain subject him to the emergency department. Denies fever or chills. States pain is rather significant and worse than any menstrual cycle that she has had. Denies nausea, vomiting, diarrhea or fever. Has had blood in her urine but she is also on her menstrual cycle. Timing/Duration: 1 Week, Getting Worse, Intermittent Severity/Quality: Moderate, Severe, Aching Location: RLQ Radiation: No Radiation Activities at Onset: None Modifying Factors: Worsens With Movement, Worsens With Palpation Associated Symptoms: No Fever/Chills, No Nausea/Vomiting, No Shortness of Air, No Weakness Allergies and Home Medications Allergies Coded Allergies: Penicillins (Unverified Allergy, Unknown, 02/25/17) Patient Home Medication List Home Medication List Reviewed: Yes Docusate Sodium (Colace) 100 Mg Capsule, 100 MG PO DAILY, (Reported) Entered as Reported by: MONA BARRY on 04/27/20 1309 Ibuprofen (Ibu) 600 Mg Tablet, 600 MG PO Q6HR Prescribed by: SELENA ABARCA on 05/12/20 1057 Pca009/FA/Omega3/Dha/Fish Oil ( Gummies) 1 Each Tab.chew, 2 EACH PO DAILY, (Reported) Entered as Reported by: MONA BARRY on 04/27/20 1606 Review of Systems Review of Systems Constitutional: see HPI EENTM: No Symptoms Reported Respiratory: Denies Cough, Denies Shortness of Air Cardiovascular: Denies Chest Pain, Denies Lightheadedness Gastrointestinal: See HPI, Abdominal Pain; Denies Constipated Genitourinary: See HPI Musculoskeletal: no symptoms reported Skin: no symptoms reported All Other Systems Reviewed Negative Unless Noted: Yes Past Ldzzktv-Oxnnxf-Awbgil Hx Patient Social History Tobacco Use?: No Use of E-Cig and/or Vaping dev: No Substance use?: No Alcohol Use?: No Pt feels they are or have been: No Immunizations Up To Date Tetanus Booster (TDap): Unknown PED Vaccines UTD: Yes First/Initial COVID19 Vaccinat: Not Currently Vaccinated Seasonal Allergies Seasonal Allergies: No Past Medical History Surgeries: No Respiratory: Yes Asthma Currently Using CPAP: No Currently Using BIPAP: No Cardiac: No Neurological: No Last Menstrual Period: Jun 06, 2021 Genitourinary: Yes Kidney Infection, Kidney Stones Gastrointestinal: Yes Diverticulosis Musculoskeletal: No Endocrine: No HEENT: No Cancer: No Psychosocial: No Integumentary: No Blood Disorders: No Adverse Reaction/Blood Tranf: No Family Medical History Reviewed Nursing Family Hx Diabetes mellitus 19 MOTHER (mother) Drug abuse Hypertension 19 MOTHER (mother) No Pertinent Family Hx Physical Exam Vital Signs Vital Signs - First Documented 06/06/21 15:48 Temp 36.8 Pulse 76 Resp 20 B/P (MAP) 132/91 (105) Pulse Ox 97 O2 Delivery Room Air Capillary Refill : Less Than 3 Seconds Height/Weight/BMI Height: 5'8.00" Weight: 260lbs. 0oz. 117.912171ew; 39.00 BMI Method:Stated General Appearance: WD/WN, mild distress Neck: full range of motion, supple Respiratory: lungs clear, normal breath sounds Cardiovascular: regular rate, rhythm, no murmur Gastrointestinal: soft; No guarding, No rebound; tenderness (Right lower quadrant) Extremities: non-tender, normal inspection Back: normal inspection, no CVA tenderness, no vertebral tenderness Neurologic/Psychiatric: alert, oriented x 3 Skin: normal color, warm/dry Progress/Results/Core Measures Results/Orders Lab Results Laboratory Tests Test 06/06/21 15:15 06/06/21 15:55 Range/Units Sodium Level 138 135-145 MMOL/L Potassium Level 4.4 3.6-5.0 MMOL/L Chloride Level 106 98-107 MMOL/L Carbon Dioxide Level 23 21-32 MMOL/L Anion Gap 9 5-14 MMOL/L Blood Urea Nitrogen 12 7-18 MG/DL Creatinine 0.55 L 0.60-1.30 MG/DL Estimat Glomerular Filtration Rate 128 BUN/Creatinine Ratio 22 Glucose Level 94 70-105 MG/DL Calcium Level 9.2 8.5-10.1 MG/DL Corrected Calcium 9.1 8.5-10.1 MG/DL Total Bilirubin < 0.2 0.1-1.0 MG/DL Aspartate Amino Transf (AST/SGOT) 14 5-34 U/L Alanine Aminotransferase (ALT/SGPT) 9 0-55 U/L Alkaline Phosphatase 128 40-136 U/L C-Reactive Protein 0.38 <0.50 MG/DL Total Protein 6.8 6.4-8.2 GM/DL Albumin 4.1 3.2-4.5 GM/DL Urine Color OTHER H Urine Clarity CLEAR Urine pH 7.5 5-9 Urine Specific Elrod 1.020 1.016-1.022 Urine Protein NEGATIVE NEGATIVE Urine Glucose (UA) NEGATIVE NEGATIVE Urine Ketones NEGATIVE NEGATIVE Urine Nitrite NEGATIVE NEGATIVE Urine Bilirubin NEGATIVE NEGATIVE Urine Urobilinogen 0.2 < = 1.0 MG/DL Urine Leukocyte Esterase NEGATIVE NEGATIVE Urine RBC (Auto) 3+ H NEGATIVE Urine RBC 25-50 H /HPF Urine WBC NONE /HPF Urine Squamous Epithelial Cells RARE /HPF Urine Crystals NONE /LPF Urine Bacteria NEGATIVE /HPF Urine Casts NONE /LPF Urine Mucus NEGATIVE /LPF Urine Culture Indicated NO My Orders Orders - YAYA SNOWDEN MD Ed Iv/Invasive Line Start (06/06/21 16:02) Urine Bedside (06/06/21 16:02) Comprehensive Metabolic Panel (06/06/21 16:02) Ct Abd/Pelv W (Appendicitis) (06/06/21 16:02) Ed Iv/Invasive Line Start (06/06/21 16:02) Ns Iv 1000 Ml (Sodium Chloride 0.9%) (06/06/21 16:15) Ketorolac Injection (Toradol Injection) (06/06/21 16:02) Crp Fs (06/06/21 16:02) Iohexol Injection (Omnipaque 350 Mg/Ml 1 (06/06/21 16:45) Received Contrast (Hold Metformin- Contr (06/06/21 16:45) Sodium Chloride Flush (Catheter Flush Sy (06/06/21 16:45) Ns (Ivpb) (Sodium Chloride 0.9% Ivpb Bag (06/06/21 16:45) Ua Culture If Indicated (06/06/21 16:59) Fentanyl Inj (Sublimaze Injection) (06/06/21 17:00) Medications Given in ED Current Medications Medications Dose Ordered Sig/Carlos Eduardo Route Start Time Stop Time Status Last Admin Dose Admin Iohexol 100 ml ONCE ONCE IV 06/06/21 16:45 06/06/21 16:46 DC 06/06/21 16:41 100 ML Sodium Chloride 10 ml NEEDED PRN IV 06/06/21 16:45 06/06/21 16:41 10 ML Sodium Chloride 100 ml ONCE ONCE IV 06/06/21 16:45 06/06/21 16:46 DC 06/06/21 16:41 100 ML Vital Signs/I&O 06/06/21 15:48 Temp 36.8 Pulse 76 Resp 20 B/P (MAP) 132/91 (105) Pulse Ox 97 O2 Delivery Room Air Blood Pressure Mean: 105 Progress Progress Note : Progress Note Seen and evaluated. IV, labs, UA, normal saline [address] abdomen and pelvis with appendicitis protocol. Monitor patient. Fentanyl 50 mcg IV for pain after Toradol 30 mg IV for pain did not significantly reduce her pain symptoms. Monitor patient. 1718: Overall doing better now. UA is negative. CT is negative for appendicitis or other acute pathology. Pain may be related to just first menstrual cycle after but further evaluation can be done through primary care provider. She will follow up with Dr. Abarca tomorrow. I will send a copy of the note to her as well with results from today. She has prescription for naproxen. No indication for antibiotic currently. Discharged home with return precautions. Patient verbalized understanding instructions and agreement with plan. Patient very appreciative of the care. Diagnostic Imaging Diagonstic Imaging: CT Plain Films/CT/US/NM/MRI: abdomen, pelvis Comments [facility], [place] NAME: GLORIA CORNELL [employer] REC#: [id number] PT STATUS: REG ER : 1990 PHYSICIAN: YAYA SNOWDEN MD ADMIT DATE: 06/06/21/ER FS Draft Date of Exam:06/06/21 CT ABD/PELV W (APPENDICITIS) INDICATION: Abdominal pain and right lower quadrant, history of renal stones and medullary sponge kidney. TECHNIQUE: Multiple contiguous axial images were obtained through the abdomen and pelvis after the administration of intravenous contrast. All CT scans use one or more of the following dose optimizing techniques: automated exposure control, MA and/or KvP adjustment based on patient size and exam type or iterative reconstruction. COMPARISON: 06/16/2020. FINDINGS: The visualized portions of the lung bases are clear. There are no pleural fluid collections. There is no free intraperitoneal air. The liver and gallbladder appear unremarkable. The spleen, adrenals and pancreas appear unremarkable. Kidneys, bilaterally, show no hydronephrosis or ureteral stone. There is no retroperitoneal mass or adenopathy. There is no ascites or abnormal fluid collection. Visualized bowel loops show no sign of obstruction. The appendix appears unremarkable. There is no adnexal mass or free fluid. There is no pelvic mass or adenopathy. IMPRESSION: Negative CT the abdomen and pelvis, no change from 06/16/2020. Dictated on workstation # [id number] Dict: 06/06/21 1645 Trans: 06/06/21 1651 [facility] [id number] Interpreted by: JUSTINE LEVI MD Electronically signed by: Departure Impression Primary Impression: Right lower quadrant abdominal pain Additional Impression: Dysmenorrhea Disposition: 01 HOME, SELF-CARE Condition: Improved Departure-Patient Inst. Decision time for Depature: 17:20 Referrals: SELENA ABARCA MD (PCP/Family) Primary Care Physician Patient Instructions: Abdominal Pain, Adult ED, Painful Periods Add. Discharge Instructions: All discharge instructions reviewed with patient and/or family. Voiced understanding. Follow-up with your doctor tomorrow for recheck and further evaluation. Take medications as previously prescribed. Return for worse pain, fever, vomiting, weakness, breathing problems or other concerns as needed. Drink plenty of fluids. Copy Copies To 1: SELENA ABARCA MD, TIMOTHY D MD Jun 06, 2021 17:13
[2021-06-06 17:22] VITALS: BP 132/91
== END 2021-06-06 17:22 | disposition home or self-care (01) ==
LOC: EDUNIT# 15:44 → ER FS 15:45
DX: N94.6 Dysmenorrhea, unspecified (principal); J45.909 Unspecified asthma, uncomplicated
CPT/HCPCS: 36415; 74177; 80053; 81000; 84703; 86141

== ENCOUNTER → 2021-06-06 | Outpatient (CLI) | payer MEDICAID ==
[~2021-06-06] MED LIST changes: -CATHETER FLUSH 10 ML SYR IV PRN; -HOLD METFORMIN - RECEIVED CONTRAST 20 ML VIAL IV SCH; -IOHEXOL 350 MG/ML 100 ML (OMNIPAQUE 350) VIAL IV ONE; -METO10TA3 PO; +MTC10T PO; -NS 100 ML (IVPB) BAG IV ONE; -SULF1TAB35 PO; +SULF1TAB38 PO
[2021-06-06 15:16] LABS: WHITE BLOOD COUNT 8.7 10^3/uL (4.3-11.0)
[2021-06-06 15:17] LABS: HEMATOCRIT 40 % (35-52); HEMOGLOBIN 13.6 g/dL (11.5-16.0); MEAN CORPUSCULAR HEMOGLOBIN 29 pg (25-34); MEAN CORPUSCULAR HGB CONC 34 g/dL (32-36); MEAN CORPUSCULAR VOLUME 87 fL (80-99); PLATELET COUNT 230 10^3/uL (130-400)
[2021-06-06 15:21] LABS: BASOPHILS % (AUTO) 1 % (0-10); EOSINOPHILS # (AUTO) 0.2 10^3/uL (0.0-0.3); EOSINOPHILS % (AUTO) 2 % (0-10); LYMPHOCYTES % (AUTO) 35 % (12-44); MONOCYTES # (AUTO) 0.5 X 10^3 (0.0-1.0); MONOCYTES % (AUTO) 5 % (0-12); NEUTROPHILS # (AUTO) 4.9 X 10^3 (1.8-7.8); NEUTROPHILS % (AUTO) 57 % (42-75)
[2021-06-06 15:22] LABS: BASOPHILS # (AUTO) 0.1 10^3/uL (0.0-0.1)
== END ==
LOC: LAB FS 14:59
PROVIDERS: ATTEND Registered Nurse Emergency
DX: R10.9 Unspecified abdominal pain (principal)
CPT/HCPCS: 36415; 85025

== ENCOUNTER → 2021-10-12 | Outpatient (CLI) | payer MEDICAID ==
[~2021-10-12] MED LIST changes: +CYCL10TA25 PO; -CYCL10TA9 PO
== END ==
LOC: LABNPT 15:29
PROVIDERS: ATTEND Registered Nurse Emergency
DX: R10.31 Right lower quadrant pain (principal)
CPT/HCPCS: 87070

== ENCOUNTER 2023-02-17 13:49 | Emergency (ER) | payer MEDICAID ==
[~2023-02-17] VITALS: Ht 172.7 cm; Wt 108.4 kg
[2023-02-17 13:53] VITALS: BP 139/84
[2023-02-17] MEDS ORDERED: ONDANSETRON 4 MG/2 ML (SDV) Z0FRAN IVP STA (14:08)
[2023-02-17] MEDS ORDERED: NS IV 1000 ML 1,000 ML IV STA (14:08)
[2023-02-17] MEDS ORDERED: fentaNYL INJ 100 MCG/2 ML AMP IVP STA ×2 (14:08→15:27)
--- NOTE | 2023-02-17 14:11 | ED Abdominal Pain ---
General Chief Complaint: Abdominal/GI Problems Stated Complaint: LRQ PAIN Source of Information: Patient History of Present Illness Date Seen by Provider: Feb 17, 2023 Time Seen by Provider: 13:56 Initial Comments 32-year-old female presenting with complaints of right lower quadrant abdominal pain since last week. She reports that the pain has gotten worse in the last 24 hours. She has nausea when she eats. She denies any vomiting. Initially with the pain she had improved symptoms after she would have a bowel movement or urinate but that is not helping today. She has had history of an ovarian cyst to cause severe pain previously but was unsure if that was the issue. She also has a history of prior kidney stones but this felt different. She denies having any fever, chills, blood in the urine, blood in her stools. Timing/Duration: 1 Week Severity/Quality: Severe, Sharp, Stabbing Location: RLQ, Suprapubic Radiation: No Radiation Activities at Onset: None Modifying Factors: Worsens With Movement, Worsens With Palpation Associated Symptoms: No Back Pain, No Chest Pain, No Diaphoresis, No Fever/Chills, No Fatigue, No Headache, No Heartburn; Nausea/Vomiting (nausea but no emesis); No Rash, No Shortness of Air, No Swelling/Mass in Abdomen, No Syncope, No Weakness Allergies and Home Medications Allergies Coded Allergies: Penicillins (Unverified Allergy, Unknown, 02/25/17) Patient Home Medication List Home Medication List Reviewed: Yes Docusate Sodium (Colace) 100 Mg Capsule, 100 MG PO DAILY, (Reported) Entered as Reported by: MONA BARRY on 04/27/20 1606 Hydrocodone/Acetaminophen (Hydrocodone-Acetamin 5-325 mg) 5 Mg-325 Mg Tablet, 1 TAB PO Q4H PRN for PAIN SEVERE Prescribed by: RENU Galloway ENYART on 02/17/23 1534 Ibuprofen (Ibu) 600 Mg Tablet, 600 MG PO Q6HR Prescribed by: SELENA ABARCA on 05/12/20 1057 Ondansetron (Ondansetron Odt) 4 Mg Tab.rapdis, 4 MG PO Q6H PRN for NAUSEA/VOMITING Prescribed by: RENU ARREDONDOYART on 02/17/23 1533 [id number]/FA/Omega3/Dha/Fish Oil ( Gummies) 1 Each Tab.chew, 2 EACH PO DAILY, (Reported) Entered as Reported by: MONA BARRY on 04/27/20 2936 Review of Systems Review of Systems Constitutional: No chills, No fever EENTM: No Symptoms Reported Respiratory: No Symptoms Reported Cardiovascular: No Symptoms Reported Gastrointestinal: See HPI Genitourinary: Denies Burning, Denies Frequency, Denies Pain Musculoskeletal: no symptoms reported Skin: No rash Psychiatric/Neurological: No Symptoms Reported; Denies Headache Past Sioynvg-Wlgdhj-Ywxchh Hx Patient Social History Tobacco Use?: No Use of E-Cig and/or Vaping dev: No Alcohol Use?: No Immunizations Up To Date Tetanus Booster (TDap): Unknown PED Vaccines UTD: Yes First/Initial COVID19 Vaccinat: Not Currently Vaccinated Seasonal Allergies Seasonal Allergies: No Past Medical History Surgeries: No Respiratory: Yes Asthma Currently Using CPAP: No Currently Using BIPAP: No Cardiac: No Neurological: No Genitourinary: Yes Kidney Infection, Kidney Stones Gastrointestinal: Yes Diverticulosis Musculoskeletal: No Endocrine: No HEENT: No Cancer: No Psychosocial: No Integumentary: No Blood Disorders: No Adverse Reaction/Blood Tranf: No Family Medical History Diabetes mellitus 19 MOTHER (mother) Drug abuse Hypertension 19 MOTHER (mother) No Pertinent Family Hx Physical Exam Vital Signs Vital Signs - First Documented 02/17/23 13:53 Temp 36.9 Pulse 94 Resp 16 B/P (MAP) 139/84 (102) O2 Delivery Room Air Capillary Refill : Height/Weight/BMI Height: 5'8.00" Weight: 260lbs. 0oz. 117.229702om; 39.00 BMI Method:Stated General Appearance: WD/WN, mild distress (appears to not feel well and holding her right lower abdomen) HEENT: PERRL/EOMI Neck: non-tender, full range of motion, supple Respiratory: chest non-tender, lungs clear, normal breath sounds, no r espiratory distress, no accessory muscle use Cardiovascular: normal peripheral pulses, regular rate, rhythm Gastrointestinal: normal bowel sounds, soft, no pulsatile mass; No distended, No guarding, No rebound; tenderness (RLQ and suprapubic) Rectal: deferred Extremities: normal range of motion, non-tender, normal capillary refill Back: no CVA tenderness Neurologic/Psychiatric: bear keeper II-XII nml as tested, alert, oriented x 3 Skin: normal color, warm/dry Images 1 - pain with palpation and movement of the RLQ and suprapubic areas Progress/Results/Core Measures Results/Orders Lab Results Laboratory Tests Test 02/17/23 14:00 Range/Units White Blood Count 6.3 4.3-11.0 10^3/uL Red Blood Count 4.58 3.80-5.11 10^6/uL Hemoglobin 13.7 11.5-16.0 g/dL Hematocrit 41 35-52 % Mean Corpuscular Volume 90 80-99 fL Mean Corpuscular Hemoglobin 30 25-34 pg Mean Corpuscular Hemoglobin Concent 33 32-36 g/dL Red Cell Distribution Width 13.1 10.0-14.5 % Platelet Count 208 130-400 10^3/uL Mean Platelet Volume 11.9 9.0-12.2 fL Immature Granulocyte % (Auto) 1 % Neutrophils (%) (Auto) 53 42-75 % Lymphocytes (%) (Auto) 39 12-44 % Monocytes (%) (Auto) 5 0-12 % Eosinophils (%) (Auto) 2 0-10 % Basophils (%) (Auto) 1 0-10 % Neutrophils # (Auto) 3.3 1.8-7.8 10^3/uL Lymphocytes # (Auto) 2.5 1.0-4.0 10^3/uL Monocytes # (Auto) 0.3 0.0-1.0 10^3/uL Eosinophils # (Auto) 0.1 0.0-0.3 10^3/uL Basophils # (Auto) 0.1 0.0-0.1 10^3/uL Immature Granulocyte # (Auto) 0.0 0.0-0.1 10^3/uL Urine Color YELLOW Urine Clarity CLEAR Urine pH 6.5 5-9 Urine Specific Meredith <=1.005 1.016-1.022 Urine Protein NEGATIVE NEGATIVE Urine Glucose (UA) NEGATIVE NEGATIVE Urine Ketones NEGATIVE NEGATIVE Urine Nitrite NEGATIVE NEGATIVE Urine Bilirubin NEGATIVE NEGATIVE Urine Urobilinogen 0.2 < = 1.0 MG/DL Urine Leukocyte Esterase NEGATIVE NEGATIVE Urine RBC (Auto) NEGATIVE NEGATIVE Urine RBC NONE /HPF Urine WBC NONE /HPF Urine Squamous Epithelial Cells 0-2 /HPF Urine Crystals NONE /LPF Urine Bacteria NEGATIVE /HPF Urine Casts NONE /LPF Urine Mucus NEGATIVE /LPF Urine Culture Indicated NO Sodium Level 143 135-145 MMOL/L Potassium Level 3.7 3.6-5.0 MMOL/L Chloride Level 106 98-107 MMOL/L Carbon Dioxide Level 25 21-32 MMOL/L Anion Gap 12 5-14 MMOL/L Blood Urea Nitrogen 4 L 7-18 MG/DL Creatinine 0.73 0.60-1.30 MG/DL Estimat Glomerular Filtration Rate 111 BUN/Creatinine Ratio 5 Glucose Level 95 70-105 MG/DL Calcium Level 9.4 8.5-10.1 MG/DL Corrected Calcium 9.2 8.5-10.1 MG/DL Total Bilirubin 0.2 0.1-1.0 MG/DL Aspartate Amino Transf (AST/SGOT) 19 5-34 U/L Alanine Aminotransferase (ALT/SGPT) 13 0-55 U/L Alkaline Phosphatase 73 40-136 U/L Total Protein 6.8 6.4-8.2 GM/DL Albumin 4.2 3.2-4.5 GM/DL Lipase 46 8-78 U/L My Orders Orders - RENU SALMON MD Comprehensive Metabolic Panel (02/17/23 13:58) Lipase (02/17/23 13:58) Ua Culture If Indicated (02/17/23 13:58) Ed Iv/Invasive Line Start (02/17/23 13:58) Cbc With Automated Diff (02/17/23 13:58) Urine Bedside (02/17/23 14:00) Ct Abdomen/Pelvis W (02/17/23 14:00) Ns Iv 1000 Ml (Sodium Chloride 0.9%) (02/17/23 14:08) Fentanyl Inj (Sublimaze Injection) (02/17/23 14:08) Ondansetron Injection (Zofran Injectio (02/17/23 14:08) Iohexol Injection (Omnipaque 350 Mg/Ml 1 (02/17/23 14:30) Received Contrast (Hold Metformin- Contr (02/17/23 14:30) Ns (Ivpb) (Sodium Chloride 0.9% Ivpb Bag (02/17/23 14:30) Fentanyl Inj (Sublimaze Injection) (02/17/23 15:27) Medications Given in ED Current Medications Medications Dose Ordered Sig/Carlos Eduardo Route Start Time Stop Time Status Last Admin Dose Admin Iohexol 100 ml ONCE ONCE IV 02/17/23 14:30 02/17/23 14:31 DC 02/17/23 14:21 80 ML Sodium Chloride 100 ml ONCE ONCE IV 02/17/23 14:30 02/17/23 14:31 DC 02/17/23 14:21 100 ML Vital Signs/I&O 02/17/23 13:53 Temp 36.9 Pulse 94 Resp 16 B/P (MAP) 139/84 (102) O2 Delivery Room Air Progress Progress Note #1: Progress Note Potential diagnosis of ovarian cyst, ovarian torsion, appendicitis, diverticulitis, colitis, cystitis, renal colic. Obtain peripheral IV access and send labs for complete blood count, comprehensive metabolic profile, lipase. Urinalysis and bedside urine test. Administer normal saline 1 L IV fluid bolus for hydration. Since she had Toradol this morning at the clinic and it was not helping we will administer fentanyl 50 mcg IV for severe pain. Zofran 4 mg IV for nausea and to help prevent vomiting from the pain medicine. Obtain CT scan of the abdomen and pelvis with IV contrast to further evaluate for possible pathology in the abdomen or pelvis to be causing her symptoms and pain. Progress Note #2: Time: 15:09 Progress Note Complete blood count did not show high white blood cell count or low hemoglobin for anemia or infection. Her comprehensive metabolic profile did not not show acute electrolyte abnormality to account for her symptoms. Her urinalysis was dilute and clear without signs of infection. The CT scan of the abdomen and pelvis with IV contrast did not show ovarian cyst, kidney stone, appendicitis, diverticulitis. There was no acute pathology to account for her right lower quadrant abdominal pain. I reviewed the results and findings with the patient. I recommended ultrasound to further evaluate the ovary in better detail than the CT scan. I advised her that I could get her to the ER in [place] and they could have the ultrasound done today through the emergency department. Patient wanted to check with her as she has 5 children at home and needed to make sure that her or family could help watch the children. 1530 patient had spoke with her and they would not be able to have the ultrasound done today. She was agreeable to coming back tomorrow morning as an outpatient. The caveat would be if she had worsening pain not controlled by medicine, uncontrolled nausea vomiting, fever over 101 Fahrenheit then she should return or go directly to the hospital for further evaluation. Will provide with an outpatient order form and after discussion with radiology department they said that the patient could come in and have the ultrasound done at 8 AM tomorrow here with [facility] in [place]. In the meantime sent prescription for Hydrocodone/APAP 5/325 mg pills 1 every 4 hours prn severe pain X 3 days and Zofran 4 mg ODT 1 every 6 hours as needed for n/v. Counseled on follow up and return precautions and advised of time of 8 am to come and have ultrasound done as outpatient in the am. Diagnostic Imaging Diagonstic Imaging: CT Plain Films/CT/US/NM/MRI: abdomen, pelvis Comments [facility] [place] [place] NAME: [facility] REC#: [id number] PT STATUS: REG ER : 1990 PHYSICIAN: RENU SALMON MD ADMIT DATE: 02/17/23/ER FS Draft Date of Exam:02/17/23 CT ABDOMEN/PELVIS W PROCEDURE: CT abdomen and pelvis with contrast. TECHNIQUE: Multiple contiguous axial images were obtained through the abdomen and pelvis after administration of intravenous contrast. Auto Exposure Controls were utilized during the CT exam to meet ALARA standards for radiation dose reduction. All CT scans use one or more of the following dose optimizing techniques: automated exposure control, MA and/or KvP adjustment based on patient size and exam type or iterative reconstruction. INDICATION: 32-year-old female, right lower quadrant pain x1 week. CORRELATION STUDY: 06/06/2021 FINDINGS: LOWER THORAX: Clear. LIVER: Unremarkable. GALLBLADDER: Present and unremarkable. No bile duct dilatation. SPLEEN: Unremarkable. PANCREAS: Unremarkable. ADRENAL GLANDS: Unremarkable. KIDNEYS: Probable small cortical renal cysts. Otherwise normal enhancement. No obstruction. ABDOMINAL AORTA: Unremarkable, nonaneurysmal. GASTROINTESTINAL TRACT: Stomach moderately distended with retained gastric contents. No small bowel obstruction. There is mild stool within the proximal colon. Normal appendix is present. No abdominal ascites or free air. A few scattered colonic diverticuli without diverticulitis. URINARY BLADDER: Unremarkable. REPRODUCTIVE: Uterus and adnexa unremarkable. OSSEOUS STRUCTURES: No acute abnormality. IMPRESSION: 1. Negative for acute abnormality of the abdomen or pelvis. Dictated on workstation # [id number] Dict: 02/17/23 1438 Trans: 02/17/23 1445 DO [id number] Interpreted by: JOZEF DORAN DO Electronically signed by: Reviewed: Reviewed by Me Departure Impression Primary Impression: Right lower quadrant abdominal pain Disposition: HOME, SELF-CARE Condition: Stable Departure-Patient Inst. Decision time for Depature: 15:28 Referrals: SELENA ABARCA MD (PCP) Primary Care Physician Patient Instructions: Pelvic Pain ED, Abdominal Pain, Adult ED Add. Discharge Instructions: Your blood work, urinalysis, CT scan of the abdomen and pelvis did not show any definite cause of your pain. For severe pain at home you could try taking the hydrocodone with acetaminophen 5/325 mg 1 pill every 4 hours as needed for severe pain. This can cause constipation so you might need to take MiraLAX or a laxative. Return in the morning for ultrasound at 8 AM. If you are having more severe pain not controlled with medicine or uncontrolled vomiting then you should return or consider going to the hospital for further evaluation All discharge instructions reviewed with patient and/or family. Voiced understanding. Scripts Ondansetron (Ondansetron Odt) 4 Mg Tab.rapdis 4 MG PO Q6H PRN for NAUSEA/VOMITING for 3 Days, #12 TAB 0 Refills Prov: RENU SALMON MD 02/17/23 Hydrocodone/Acetaminophen (Hydrocodone-Acetamin 5-325 mg) 5 Mg-325 Mg Tablet 1 TAB PO Q4H PRN for PAIN SEVERE for 3 Days, #18 TAB 0 Refills Prov: RENU SALMON MD 02/17/23 RENU SALMON MD Feb 17, 2023 14:11
[2023-02-17 14:20] LABS: BILIRUBIN,URINE NEGATIVE (NEGATIVE); CLARITY,URINE CLEAR; COLOR,URINE YELLOW; GLUCOSE, URINE (UA) NEGATIVE (NEGATIVE); KETONES,URINE NEGATIVE (NEGATIVE); LEUKOCYTE ESTERASE ,URINE NEGATIVE (NEGATIVE); NITRITE,URINE NEGATIVE (NEGATIVE); PH,URINE 6.5 (5-9); PROTEIN,URINE NEGATIVE (NEGATIVE)
[2023-02-17 14:21] LABS: BACTERIA,URINE NEGATIVE /HPF; SQUAMOUS EPITHELIAL CELL,UR 0-2 /HPF
[2023-02-17 14:22] LABS: BASOPHILS # (AUTO) 0.1 10^3/uL (0.0-0.1); BASOPHILS % (AUTO) 1 % (0-10); EOSINOPHILS # (AUTO) 0.1 10^3/uL (0.0-0.3); EOSINOPHILS % (AUTO) 2 % (0-10); HEMATOCRIT 41 % (35-52); HEMOGLOBIN 13.7 g/dL (11.5-16.0); LYMPHOCYTES # (AUTO) 2.5 10^3/uL (1.0-4.0); LYMPHOCYTES % (AUTO) 39 % (12-44); MEAN CORPUSCULAR HEMOGLOBIN 30 pg (25-34); MEAN CORPUSCULAR HGB CONC 33 g/dL (32-36); MEAN CORPUSCULAR VOLUME 90 fL (80-99); MEAN PLATELET VOLUME 11.9 fL (9.0-12.2); MONOCYTES # (AUTO) 0.3 10^3/uL (0.0-1.0); MONOCYTES % (AUTO) 5 % (0-12); NEUTROPHILS # (AUTO) 3.3 10^3/uL (1.8-7.8); NEUTROPHILS % (AUTO) 53 % (42-75); PLATELET COUNT 208 10^3/uL (130-400); WHITE BLOOD COUNT 6.3 10^3/uL (4.3-11.0)
[2023-02-17] MEDS ORDERED: NS 100 ML (IVPB) BAG IV ONE (14:30)
[2023-02-17] MEDS ORDERED: IOHEXOL 350 MG/ML 100 ML (OMNIPAQUE 350) VIAL IV ONE (14:30)
[2023-02-17] MEDS ORDERED: HOLD METFORMIN - RECEIVED CONTRAST 20 ML VIAL IV SCH (14:30)
[2023-02-17 14:38] LABS: ALBUMIN 4.2 GM/DL (3.2-4.5); BILIRUBIN,TOTAL 0.2 MG/DL (0.1-1.0); CALCIUM 9.4 MG/DL (8.5-10.1); CREATININE SERUM 0.73 MG/DL (0.60-1.30); POTASSIUM 3.7 MMOL/L (3.6-5.0); TOTAL PROTEIN 6.8 GM/DL (6.4-8.2)
--- NOTE | 2023-02-17 14:46 | Diagnostic Imaging Report ---
PROCEDURE: CT abdomen and pelvis with contrast. TECHNIQUE: Multiple contiguous axial images were obtained through the abdomen and pelvis after administration of intravenous contrast. Auto Exposure Controls were utilized during the CT exam to meet ALARA standards for radiation dose reduction. All CT scans use one or more of the following dose optimizing techniques: automated exposure control, MA and/or KvP adjustment based on patient size and exam type or iterative reconstruction. INDICATION: 32-year-old female, right lower quadrant pain x1 week. CORRELATION STUDY: 06/06/2021 FINDINGS: LOWER THORAX: Clear. LIVER: Unremarkable. GALLBLADDER: Present and unremarkable. No bile duct dilatation. SPLEEN: Unremarkable. PANCREAS: Unremarkable. ADRENAL GLANDS: Unremarkable. KIDNEYS: Probable small cortical renal cysts. Otherwise normal enhancement. No obstruction. ABDOMINAL AORTA: Unremarkable, nonaneurysmal. GASTROINTESTINAL TRACT: Stomach moderately distended with retained gastric contents. No small bowel obstruction. There is mild stool within the proximal colon. Normal appendix is present. No abdominal ascites or free air. A few scattered colonic diverticuli without diverticulitis. URINARY BLADDER: Unremarkable. REPRODUCTIVE: Uterus and adnexa unremarkable. OSSEOUS STRUCTURES: No acute abnormality. IMPRESSION: 1. Negative for acute abnormality of the abdomen or pelvis. Dictated by: Dictated on workstation # [id number]
[2023-02-17] MEDS ORDERED: ONDA4TAB11 PO (15:33)
[2023-02-17] MEDS ORDERED: ACHD5005 PO (15:33)
== END 2023-02-17 15:40 | disposition home or self-care (01) ==
LOC: EDUNIT# 13:49 → ER FS 13:50
DX: R10.31 Right lower quadrant pain (principal); R11.0 Nausea; Z28.310 Unvaccinated for COVID-19
CPT/HCPCS: 36415; 74177; 80053; 81000; 83690; 84703; 85025; Q9967

== ENCOUNTER → 2023-02-18 | Outpatient (CLI) | payer MEDICAID ==
[~2023-02-18] MED LIST changes: +ONDA4TAB11 PO
--- NOTE | 2023-02-18 10:01 | Diagnostic Imaging Report ---
PROCEDURE: US Non-ob pelvis comp/trans. TECHNIQUE: Multiple realtime grayscale images were obtained of the pelvis in various projections endovaginally. Transabdominal imaging was also performed. INDICATION: Pelvic pain. COMPARISON: CT abdomen pelvis of 02/17/2023 FINDINGS: The uterus measures 10.0 x 4.9 x 6.5 cm and is anteverted. The myometrium is normal in echogenicity without discrete mass. The endometrium measures up to 1.2 cm where visualized, and has a normal trilaminar appearance. The right ovary measures 4.4 x 2.5 x 2.4 cm. The left ovary measures 3.1 x 2.1 x 1.9 cm. Both ovaries are physiologic in appearance. Blood flow is seen in both ovaries on color doppler imaging. No suspicious adnexal mass or fluid collection. No free pelvic fluid. IMPRESSION: 1. Normal pelvic ultrasound. Dictated by: Dictated on workstation # [id number]
== END ==
LOC: RAD FS 07:53
PROVIDERS: ATTEND Family Medicine
DX: R10.31 Right lower quadrant pain (principal)
CPT/HCPCS: 76830; 76856

== ENCOUNTER 2023-02-24 16:48 | Emergency (ER) | payer MEDICAID ==
[~2023-02-24] VITALS: Ht 172.7 cm; Wt 107.7 kg
[2023-02-24] MEDS ORDERED: fentaNYL INJ 100 MCG/2 ML AMP IM ONE (17:45)
--- NOTE | 2023-02-24 17:54 | ED Abdominal Pain ---
General Chief Complaint: Abdominal/GI Problems Stated Complaint: R SIDE ABD PAIN FOR A MONTH Nursing Triage Note: PT AMBUALTE TO ROOM FSOF WITHOUT DIFFICULTY WITH C/O RIGHT SIDE X18 DAYS. PT REPORTS BEING SEEN IN THIS ED LAST WEED FOR SAME C/O. PT REPORTS HAVING AN ULTRASOUND DONE THAT WAS NEGATIVE. PT REPORT APPT WITH PCP TOMORROW. Source of Information: Patient, Family (Mother), Old Records History of Present Illness Date Seen by Provider: Feb 24, 2023 Time Seen by Provider: 17:19 Initial Comments 32-year-old G4, P3, E1 with history of bilateral tubal ligation complaining of right lower quadrant abdominal sharp pain as a constant pain for the last 18 days that getting better and worse. Patient complaining of nausea and chills without vomiting and fever. Patient states she has had diarrhea for the last 3 days and had 4 episodes of diarrhea today with increasing her pain and rated her pain 10/10. Patient stated the pain getting worse with movement and activity, urination and defecation and does not improving with pain medication or not eating. Patient stated she had vaginal bleeding and passing blood clots since this morning when her LMP was February 01 but the vaginal bleeding stopped currently. Patient was seen in this emergency room 1 week ago and had extensive evaluation including CBC, CMP, UA, lipase and CT abdomen pelvis without abnormal finding. Patient had pelvic ultrasound the next day after her last visit that was unremarkable patient was seen by her primary care physician 1 week ago before coming to ER and treated with dicyclomine for bladder spasm. Timing/Duration: Constant (18-day), Getting Worse, Other Severity/Quality: Severe, Sharp Location: RLQ Radiation: No Radiation Allergies and Home Medications Allergies Coded Allergies: Penicillins (Unverified Allergy, Unknown, 02/25/17) Patient Home Medication List Home Medication List Reviewed: Yes Docusate Sodium (Colace) 100 Mg Capsule, 100 MG PO DAILY, (Reported) Entered as Reported by: MONA BARRY on 04/27/20 1606 Hydrocodone/Acetaminophen (Hydrocodone-Acetamin 5-325 mg) 5 Mg-325 Mg Tablet, 1 TAB PO Q4H PRN for PAIN SEVERE Prescribed by: RENU SALMON on 02/17/23 1534 Ibuprofen (Ibu) 600 Mg Tablet, 600 MG PO Q6HR Prescribed by: SELENA ABARCA on 05/12/20 1057 Ondansetron (Ondansetron Odt) 4 Mg Tab.rapdis, 4 MG PO Q6H PRN for NAUSEA/ VOMITING Prescribed by: RENU SALMON on 02/17/23 1533 Kuk973/FA/Omega3/Dha/Fish Oil ( Gummies) 1 Each Tab.chew, 2 EACH PO DAILY, (Reported) Entered as Reported by: MONA BARRY on 04/27/20 1606 Review of Systems Review of Systems Constitutional: see HPI EENTM: No Symptoms Reported Respiratory: No Symptoms Reported Cardiovascular: No Symptoms Reported Gastrointestinal: See HPI Genitourinary: See HPI Musculoskeletal: see HPI Skin: no symptoms reported Psychiatric/Neurological: No Symptoms Reported Endocrine: No Symptoms Reported Hematologic/Lymphatic: No Symptoms Reported All Other Systems Reviewed Negative Unless Noted: Yes Past Aifxkug-Mtyjww-Cooccm Hx Patient Social History Tobacco Use?: No Smoking Status: Never a Smoker Smokeless Tobacco Frequency: Never a User Use of E-Cig and/or Vaping dev: No Use of E-Cig and/or Vaping Prasanth: Never a User Substance use?: No Alcohol Use?: No Pt feels they are or have been: No Immunizations Up To Date Tetanus Booster (TDap): Unknown PED Vaccines UTD: Yes First/Initial COVID19 Vaccinat: Not Currently Vaccinated Seasonal Allergies Seasonal Allergies: No Past Medical History Surgeries: No Respiratory: Yes Asthma Currently Using CPAP: No Currently Using BIPAP: No Cardiac: No Neurological: No Genitourinary: Yes Kidney Infection, Kidney Stones Gastrointestinal: Yes Diverticulosis Musculoskeletal: No Endocrine: No HEENT: No Cancer: No Psychosocial: No Integumentary: No Blood Disorders: No Adverse Reaction/Blood Tranf: No Family Medical History Diabetes mellitus 19 MOTHER (mother) Drug abuse Hypertension 19 MOTHER (mother) No Pertinent Family Hx Physical Exam Vital Signs Vital Signs - First Documented 02/24/23 16:52 Temp 36.2 Pulse 81 Resp 16 B/P (MAP) 134/66 (88) O2 Delivery Room Air Capillary Refill : Less Than 3 Seconds Height/Weight/BMI Height: 5'8.00" Weight: 260lbs. 0oz. 117.558610ah; 36.00 BMI Method:Stated General Appearance: WD/WN, mild distress HEENT: PERRL/EOMI, normal ENT inspection, pharynx normal Neck: non-tender, full range of motion Respiratory: chest non-tender, lungs clear, normal breath sounds, no respiratory distress Cardiovascular: regular rate, rhythm, no edema Gastrointestinal: normal bowel sounds, non tender, soft, guarding (Right lower quadrant voluntary guarding) Extremities: normal range of motion Back: normal inspection, no CVA tenderness Neurologic/Psychiatric: alert, normal mood/affect, oriented x 3 Skin: normal color Progress/Results/Core Measures Results/Orders My Orders Orders - JANUSZ SCOTT MD Fentanyl Inj (Sublimaze Injection) (02/24/23 17:45) Medications Given in ED Current Medications Medications Dose Ordered Sig/Carlos Eduardo Route Start Time Stop Time Status Last Admin Dose Admin Fentanyl Citrate 50 mcg ONCE ONCE IM 02/24/23 17:45 02/24/23 17:47 DC 02/24/23 17:53 50 MCG Vital Signs/I&O 02/24/23 16:52 Temp 36.2 Pulse 81 Resp 16 B/P (MAP) 134/66 (88) O2 Delivery Room Air Blood Pressure Mean: 88 Progress Progress Note : Progress Note Patient with right lower quadrant abdominal pain for 18 days that getting worse today and had several episodes of diarrhea for the last 3 days. Patient was seen in this emergency room and had unremarkable CBC and CMP and lipase and UA and also was CT abdomen pelvis. Patient had pelvic ultrasound. Patient was seen by her primary care physician and treated with dicyclomine. Patient had unremarkable physical exam except for mild voluntary guarding of right lower quadrant. Patient did not want to have more labs or images. Patient already had Zofran prior to arrival to ER and felt better regarding nausea. Patient treated with 50 mcg of fentanyl IM and felt better. Patient has appointment with her primary care physician tomorrow and advised to continue with her PCP for possible diagnosis of IBS. Departure Impression Primary Impression: Right lower quadrant abdominal pain Disposition: 01 HOME, SELF-CARE Condition: Improved Departure-Patient Inst. Referrals: SELENA ABARCA MD (PCP/Family) Primary Care Physician Patient Instructions: Diarrhea in adolescents and adults, Irritable Bowel Syndrome (DC), Abdominal pain Add. Discharge Instructions: Drink plenty of liquids Follow-up with your primary care physician appointment tomorrow Continue home medication Return to ER as needed All discharge instructions reviewed with patient and/or family. Voiced understanding. JANUSZ SCOTT MD Feb 24, 2023 17:54
[2023-02-24 18:11] VITALS: BP 139/89
== END 2023-02-24 18:11 | disposition home or self-care (01) ==
LOC: EDUNIT# 16:48 → ER FS 16:49
DX: R10.31 Right lower quadrant pain (principal); Z28.310 Unvaccinated for COVID-19
CPT/HCPCS: 99284